=== PATIENT | male | born 1960 | race Caucasian/White ===

== ENCOUNTER 2017-04-09 18:35 | Emergency (ER) | payer MEDICARE, OTHER ==
[~2017-04-09] VITALS: Ht 180.3 cm; Wt 86.0 kg
[~2017-04-09 18:35] MED LIST: ASPI-1093 PO; BENZ1TAB10 PO; DOCU250C91 PO; GEMF600T3 PO; INSLAN SQ; IVER3 PO; LACT30L PO; LAMO100T56 PO; LEVO25TA4 PO; METF500T4 PO; OMEP20 PO; SANTO TP; SITA50 PO
[2017-04-09] MEDS ORDERED: MULT-71 PO (19:17)
[2017-04-09] MEDS ORDERED: TRIH2TAB3 PO (19:17)
[2017-04-09] MEDS ORDERED: DIVA500T35 PO (19:17)
[2017-04-09] MEDS ORDERED: QUET100T PO (19:17)
[2017-04-09] MEDS ORDERED: FLUO-125 PO (19:17)
[2017-04-09] MEDS ORDERED: DIVA500T52 PO (19:17)
[2017-04-09] MEDS ORDERED: SENN-30 PO (19:17)
[2017-04-09 19:24] LABS: BASOPHILS % (AUTO) 0.9 % (0.0-2.0); EOSINOPHILS % (AUTO) 3.4 % (1.0-6.0); HEMATOCRIT 40.2 % (41-53); HEMOGLOBIN 13.8 g/dL (13.5-17.5); LYMPHOCYTES % (AUTO) 21.2 % (22.0-44.0); MEAN CORPUSCULAR HEMOGLOBIN 32.4 pg (26.0-34.0); MEAN CORPUSCULAR HGB CONC 34.2 G/dL (31.0-37.0); MEAN CORPUSCULAR VOLUME 95 fL (80-100); MONOCYTES # (AUTO) 0.8 K/uL (0.1-1.0); NEUTROPHILS # (AUTO) 6.2 K/uL (1.8-7.7); NEUTROPHILS % (AUTO) 65.5 % (40.0-70.0); PLATELET COUNT (AUTO) 282 K/uL (150-450); RED BLOOD CELL COUNT(AUTO) 4.25 MIL/uL (4.50-5.90); WHITE BLOOD COUNT (AUTO) 9.4 K/uL (4.5-11.0)
[2017-04-09] MEDS ORDERED: DiphenhydrAMINE HCL 50 MG CAPSULE PO ONE (19:45)
[2017-04-09] MEDS ORDERED: HALOPERIDOL 5 MG TABLET PO ONE (19:45)
[2017-04-09] MEDS ORDERED: LORazepam 2 MG TABLET PO ONE (19:45)
[2017-04-09 20:07] LABS: ANION GAP 9 mmol/L (8-16); CALCIUM, TOTAL 9.5 mg/dL (8.8-10.5); CARBON DIOXIDE 29 mmol/L (22-29); CHLORIDE 106 mmol/L (98-107); CREATININE 1.01 mg/dL (0.60-1.30); GLOMERULAR FILTR. RATE CALC > 60 mL/min (>60); POTASSIUM 3.8 mmol/L (3.5-5.1); SODIUM SERUM 144 mmol/L (136-145); UREA NITROGEN, BLOOD 12 mg/dL (7-18)
[2017-04-09 20:12] LABS: ALANINE AMINOTRANSFERASE 28 U/L (12-78); ALBUMIN 3.8 g/dL (3.4-5.0); ASPARTATE AMINOTRANSFERASE 20 U/L (15-37); BILIRUBIN,TOTAL 0.3 mg/dL (0.1-1.0); TOTAL PROTEIN, SERUM 7.8 g/dL (6.4-8.2); VALPROIC ACID 60 mcg/mL (50-100)
[2017-04-09 21:17] LABS: GLUCOSE,POINT OF CARE 163 MG/DL (70-110)
[2017-04-09 21:34] VITALS: BP 150/93
== END 2017-04-09 21:59 | disposition home or self-care (01) ==
LOC: EMS 18:41
DX: F41.9 Anxiety disorder, unspecified (principal); F20.9 Schizophrenia, unspecified; F32.9 Major depressive disorder, single episode, unspecified; I25.10 Atherosclerotic heart disease of native coronary artery without angina pectoris; E03.9 Hypothyroidism, unspecified; E11.9 Type 2 diabetes mellitus without complications; I10 Essential (primary) hypertension; K21.9 Gastro-esophageal reflux disease without esophagitis
CPT/HCPCS: 36415; 80053; 80164; 80307; 82962; 85025; 99285; G0480

== ENCOUNTER 2017-04-12 07:36 | Inpatient (IN) | payer MEDICARE, OTHER ==
[~2017-04-12] VITALS: Ht 180.3 cm; Wt 85.0 kg
[~2017-04-12 07:36] MED LIST changes: -ASPI-1093 PO; -BENZ1TAB10 PO; +DIVA500T35 PO; +DIVA500T52 PO; -DOCU250C91 PO; +FLUO-125 PO; -GEMF600T3 PO; -INSLAN SQ; -IVER3 PO; -LAMO100T56 PO; -LEVO25TA4 PO; -METF500T4 PO; +MULT1TAB70 PO; -OMEP20 PO; +QUET100T PO; -SANTO TP; +SENN-30 PO; -SITA50 PO; +TRIH2TAB3 PO
[2017-04-12] MEDS ORDERED: ERGO400T7 PO (08:04)
[2017-04-12] MEDS ORDERED: FLUV100C2 PO (08:04)
[2017-04-12] MEDS ORDERED: DOCU-275 PO (08:04)
[2017-04-12] MEDS ORDERED: HALO5TAB PO (08:04)
[2017-04-12] MEDS ORDERED: LEVO25TA4 PO (08:04)
[2017-04-12] MEDS ORDERED: TRAZ150T85 PO (08:04)
[2017-04-12] MEDS ORDERED: DIPH25TA20 PO (08:04)
[2017-04-12] MEDS ORDERED: LITH150C PO (08:04)
[2017-04-12] MEDS ORDERED: SODIUM CHLORIDE 0.9% 1,000 ML IV ONE (08:15)
[2017-04-12 08:52] LABS: BASOPHILS % (AUTO) 0.2 % (0.0-2.0); EOSINOPHILS % (AUTO) 0.5 % (1.0-6.0); HEMATOCRIT 37.7 % (41-53); LYMPHOCYTES # (AUTO) 0.9 K/uL (1.0-4.8); LYMPHOCYTES % (AUTO) 7.6 % (22.0-44.0); MEAN CORPUSCULAR HEMOGLOBIN 31.9 pg (26.0-34.0); MEAN CORPUSCULAR HGB CONC 34.4 G/dL (31.0-37.0); MEAN CORPUSCULAR VOLUME 93 fL (80-100); MONOCYTES # (AUTO) 0.8 K/uL (0.1-1.0); MONOCYTES % (AUTO) 6.7 % (2.0-9.0); NEUTROPHILS # (AUTO) 10.4 K/uL (1.8-7.7); PLATELET COUNT (AUTO) 265 K/uL (150-450); RED BLOOD CELL COUNT(AUTO) 4.07 MIL/uL (4.50-5.90); RED CELL DISTRIBUTION WIDTH 13.9 % (11.5-14.5); WHITE BLOOD COUNT (AUTO) 12.3 K/uL (4.5-11.0)
[2017-04-12 09:01] LABS: ANION GAP 16 mmol/L (8-16); CALCIUM, TOTAL 8.8 mg/dL (8.8-10.5); CARBON DIOXIDE 21 mmol/L (22-29); CHLORIDE 109 mmol/L (98-107); CREATININE 1.11 mg/dL (0.60-1.30); GLOMERULAR FILTR. RATE CALC > 60 mL/min (>60); POTASSIUM 3.4 mmol/L (3.5-5.1); SODIUM SERUM 146 mmol/L (136-145); UREA NITROGEN, BLOOD 17 mg/dL (7-18)
[2017-04-12 09:07] LABS: SALICYLATE 59.8 mg/dL (2.8-20.0)
[2017-04-12 09:08] LABS: ALANINE AMINOTRANSFERASE 20 U/L (12-78); ALBUMIN 3.5 g/dL (3.4-5.0); ASPARTATE AMINOTRANSFERASE 19 U/L (15-37); BILIRUBIN,TOTAL 0.3 mg/dL (0.1-1.0); TOTAL PROTEIN, SERUM 7.5 g/dL (6.4-8.2); VALPROIC ACID 53 mcg/mL (50-100)
[2017-04-12 09:09] LABS: ACETAMINOPHEN < 2 mcg/mL (10-30)
[2017-04-12] MEDS ORDERED: SODIUM BICARBONATE 50 MEQ in SODIUM CHLORIDE 0.9% 1,000 ML IV ONE (09:15)
[2017-04-12 09:16] LABS: LITHIUM < 0.20 mmol/L (0.60-1.20)
[2017-04-12] MEDS ORDERED: DEXTROSE 50%-WATER 25 GM/50 ML SYRINGE IVP PRN (10:00)
[2017-04-12] MEDS ORDERED: ACETAMINOPHEN 325 MG TABLET PO PRN (10:00)
[2017-04-12] MEDS ORDERED: ONDANSETRON HCL 4 MG/2 ML VIAL IVP PRN (10:00)
[2017-04-12] MEDS ORDERED: MAGNESIUM OXIDE 400 MG TABLET PO PRN (10:00)
[2017-04-12] MEDS ORDERED: MAGNESIUM SULFATE 2 GM in DEXTROSE 5%-WATER 50 ML IV PRN (10:00)
[2017-04-12] MEDS ORDERED: MAGNESIUM SULFATE 4 GM/WATER 100 ML IV PRN (10:00)
[2017-04-12] MEDS ORDERED: POTASSIUM CHL 10 MEQ/WATER 50 ML IV PRN (10:00)
[2017-04-12] MEDS ORDERED: PERMETHRIN 5% 60 GM CREAM TP ONE (10:00)
[2017-04-12] MEDS ORDERED: MAGNESIUM HYDROXIDE SUSPENSION 30 ML UDCUP PO PRN (10:00)
[2017-04-12] MEDS: SODIUM CHLORIDE 0.9% 1,000 ML IV SCH ×2 (10:03→21:36)
[2017-04-12] MEDS: PANTOPRAZOLE SODIUM 40 MG/VIAL IVP SCH (10:03)
[2017-04-12 10:40] LABS: ANION GAP 15 mmol/L (8-16); CARBON DIOXIDE 21 mmol/L (22-29); CHLORIDE 112 mmol/L (98-107); CREATININE 1.06 mg/dL (0.60-1.30); GLOMERULAR FILTR. RATE CALC > 60 mL/min (>60); POTASSIUM 3.2 mmol/L (3.5-5.1); SODIUM SERUM 148 mmol/L (136-145); UREA NITROGEN, BLOOD 15 mg/dL (7-18)
[2017-04-12 10:54] LABS: SALICYLATE 54.9 mg/dL (2.8-20.0)
[2017-04-12 11:49] LABS: ALBUMIN 3.3 g/dL (3.4-5.0)
[2017-04-12 12:30] VITALS: BP 110/70
[2017-04-12] MEDS: POTASSIUM CHLORIDE 20 MEQ ER TABLET PO PRN ×2 (14:04→21:37)
[2017-04-12 16:20] VITALS: BP 104/65
[2017-04-12] MEDS: INSULIN ASPART 100 UNITS/ML SQ PRN (17:38)
[2017-04-12 20:00] VITALS: BP 128/73
[2017-04-12 20:18] LABS: GLUCOSE,POINT OF CARE 96 MG/DL (70-110)
[2017-04-12] MEDS: DOCUSATE SODIUM 100 MG CAPSULE PO SCH (21:36)
[2017-04-13 00:09] VITALS: BP 118/73
[2017-04-13 00:57] LABS: GLUCOSE,POINT OF CARE 83 MG/DL (70-110)
[2017-04-13] MEDS: POTASSIUM CHLORIDE 20 MEQ ER TABLET PO PRN (02:30)
[2017-04-13] MEDS ORDERED: DiphenhydrAMINE HCL 50 MG/ML VIAL IVP ONE (03:15)
[2017-04-13 04:30] VITALS: BP 119/76
[2017-04-13] MEDS: SODIUM CHLORIDE 0.9% 1,000 ML IV SCH ×3 (06:33→17:06)
[2017-04-13 06:56] LABS: BASOPHILS % (AUTO) 0.4 % (0.0-2.0); EOSINOPHILS % (AUTO) 4.2 % (1.0-6.0); HEMATOCRIT 35.3 % (41-53); HEMOGLOBIN 12.1 g/dL (13.5-17.5); LYMPHOCYTES # (AUTO) 2.2 K/uL (1.0-4.8); LYMPHOCYTES % (AUTO) 24.1 % (22.0-44.0); MEAN CORPUSCULAR HEMOGLOBIN 32.2 pg (26.0-34.0); MEAN CORPUSCULAR HGB CONC 34.2 G/dL (31.0-37.0); MEAN CORPUSCULAR VOLUME 94 fL (80-100); MONOCYTES % (AUTO) 11.2 % (2.0-9.0); NEUTROPHILS # (AUTO) 5.4 K/uL (1.8-7.7); NEUTROPHILS % (AUTO) 60.1 % (40.0-70.0); PLATELET COUNT (AUTO) 250 K/uL (150-450); RED BLOOD CELL COUNT(AUTO) 3.75 MIL/uL (4.50-5.90); RED CELL DISTRIBUTION WIDTH 13.9 % (11.5-14.5); WHITE BLOOD COUNT (AUTO) 8.9 K/uL (4.5-11.0)
[2017-04-13 07:26] LABS: ANION GAP 10 mmol/L (8-16); CALCIUM, TOTAL 7.9 mg/dL (8.8-10.5); CARBON DIOXIDE 23 mmol/L (22-29); CHLORIDE 111 mmol/L (98-107); CREATININE 1.11 mg/dL (0.60-1.30); GLOMERULAR FILTR. RATE CALC > 60 mL/min (>60); POTASSIUM 3.7 mmol/L (3.5-5.1); SODIUM SERUM 144 mmol/L (136-145); UREA NITROGEN, BLOOD 13 mg/dL (7-18)
[2017-04-13 08:22] VITALS: BP 129/79
[2017-04-13] MEDS: DOCUSATE SODIUM 100 MG CAPSULE PO SCH ×2 (09:08→21:00)
[2017-04-13] MEDS: PANTOPRAZOLE SODIUM 40 MG/VIAL IVP SCH (09:09)
[2017-04-13 11:36] VITALS: BP 128/73
[2017-04-13] MEDS: INSULIN ASPART 100 UNITS/ML SQ PRN ×2 (12:14→17:22)
[2017-04-13 15:12] VITALS: BP 116/75
[2017-04-13] MEDS: LORazepam 2 MG/ML VIAL IVP PRN ×2 (16:17→21:37)
[2017-04-13 19:23] VITALS: BP 140/83
[2017-04-13] MEDS: TRIHEXYPHENIDYL HCL 2 MG TABLET PO SCH (21:00)
[2017-04-13] MEDS: HALOPERIDOL 10 MG TABLET PO SCH (21:00)
[2017-04-13] MEDS: LITHIUM CARBONATE 300 MG TABLET PO SCH (21:00)
[2017-04-13 23:37] LABS: GLUCOSE,POINT OF CARE 94 MG/DL (70-110)
[2017-04-13 23:37] LABS: GLUCOSE,POINT OF CARE 102 MG/DL (70-110)
[2017-04-13 23:37] LABS: GLUCOSE,POINT OF CARE 74 MG/DL (70-110)
[2017-04-13 23:37] LABS: GLUCOSE,POINT OF CARE 107 MG/DL (70-110)
[2017-04-14 00:11] VITALS: BP 139/79
[2017-04-14] MEDS: SODIUM CHLORIDE 0.9% 1,000 ML IV SCH (02:17)
[2017-04-14 07:04] LABS: BASOPHILS % (AUTO) 0.6 % (0.0-2.0); EOSINOPHILS % (AUTO) 6.9 % (1.0-6.0); HEMATOCRIT 36.9 % (41-53); HEMOGLOBIN 12.4 g/dL (13.5-17.5); LYMPHOCYTES % (AUTO) 29.3 % (22.0-44.0); MEAN CORPUSCULAR HGB CONC 33.7 G/dL (31.0-37.0); MEAN CORPUSCULAR VOLUME 95 fL (80-100); MONOCYTES # (AUTO) 0.9 K/uL (0.1-1.0); MONOCYTES % (AUTO) 12.9 % (2.0-9.0); NEUTROPHILS # (AUTO) 3.5 K/uL (1.8-7.7); NEUTROPHILS % (AUTO) 50.3 % (40.0-70.0); PLATELET COUNT (AUTO) 245 K/uL (150-450); RED BLOOD CELL COUNT(AUTO) 3.89 MIL/uL (4.50-5.90); RED CELL DISTRIBUTION WIDTH 13.8 % (11.5-14.5)
[2017-04-14 07:29] LABS: ALANINE AMINOTRANSFERASE 25 U/L (12-78); ALBUMIN 3.1 g/dL (3.4-5.0); ANION GAP 9 mmol/L (8-16); ASPARTATE AMINOTRANSFERASE 40 U/L (15-37); BILIRUBIN,TOTAL 0.2 mg/dL (0.1-1.0); CALCIUM, TOTAL 8.5 mg/dL (8.8-10.5); CARBON DIOXIDE 27 mmol/L (22-29); CHLORIDE 109 mmol/L (98-107); CREATININE 0.98 mg/dL (0.60-1.30); GLOMERULAR FILTR. RATE CALC > 60 mL/min (>60); POTASSIUM 3.4 mmol/L (3.5-5.1); SODIUM SERUM 145 mmol/L (136-145); TOTAL PROTEIN, SERUM 6.6 g/dL (6.4-8.2); UREA NITROGEN, BLOOD 8 mg/dL (7-18)
[2017-04-14 08:12] VITALS: BP 136/84
[2017-04-14 08:16] LABS: THYROID STIMULATING HORMONE 3.82 uIU/mL (0.36-3.74)
[2017-04-14 08:38] LABS: LITHIUM < 0.20 mmol/L (0.60-1.20)
[2017-04-14 08:45] LABS: SALICYLATE 17.4 mg/dL (2.8-20.0)
[2017-04-14] MEDS ORDERED: HALOPERIDOL LACTATE 5 MG/ML VIAL IM PRN (10:15)
[2017-04-14 11:09] VITALS: BP 128/74
[2017-04-14] MEDS: INSULIN ASPART 100 UNITS/ML SQ PRN ×2 (12:03→16:50)
[2017-04-14] MEDS: DOCUSATE SODIUM 100 MG CAPSULE PO SCH ×2 (12:27→19:36)
[2017-04-14] MEDS: POTASSIUM CHLORIDE 20 MEQ ER TABLET PO PRN (12:27)
[2017-04-14] MEDS: HALOPERIDOL 10 MG TABLET PO SCH ×2 (12:27→19:37)
[2017-04-14] MEDS: TRIHEXYPHENIDYL HCL 2 MG TABLET PO SCH ×3 (12:28→19:35)
[2017-04-14] MEDS: FLUoxetine HCL 20 MG CAPSULE PO SCH (12:28)
[2017-04-14] MEDS: LITHIUM CARBONATE 300 MG TABLET PO SCH ×2 (12:28→19:36)
[2017-04-14 14:21] LABS: GLUCOSE,POINT OF CARE 102 MG/DL (70-110)
[2017-04-14 16:05] VITALS: BP 144/80
[2017-04-14] MEDS: QUEtiapine FUMARATE 100 MG TABLET PO SCH ×2 (16:21→19:37)
[2017-04-14 17:17] LABS: GLUCOSE,POINT OF CARE 94 MG/DL (70-110)
[2017-04-14 18:42] LABS: GLUCOSE COMMENT 1 Received Meds; GLUCOSE,POINT OF CARE 141 MG/DL (70-110)
[2017-04-14 20:00] VITALS: BP 150/88
[2017-04-14 22:07] LABS: GLUCOSE COMMENT 1 Juice/Food/D50 Given; GLUCOSE,POINT OF CARE 148 MG/DL (70-110)
[2017-04-15 00:17] VITALS: BP 132/84
[2017-04-15 04:00] VITALS: BP 136/82
[2017-04-15 07:51] VITALS: BP 154/84
[2017-04-15] MEDS: FLUoxetine HCL 20 MG CAPSULE PO SCH (08:29)
[2017-04-15] MEDS: LITHIUM CARBONATE 300 MG TABLET PO SCH ×2 (08:30→22:23)
[2017-04-15] MEDS: HALOPERIDOL 10 MG TABLET PO SCH ×2 (08:36→22:23)
[2017-04-15] MEDS: TRIHEXYPHENIDYL HCL 2 MG TABLET PO SCH ×3 (08:36→22:23)
[2017-04-15] MEDS: DOCUSATE SODIUM 100 MG CAPSULE PO SCH ×2 (08:37→22:23)
[2017-04-15] MEDS: PANTOPRAZOLE SODIUM 40 MG/VIAL IVP SCH ×2 (08:55→09:00)
[2017-04-15 08:57] LABS: GLUCOSE COMMENT 1 Received Meds; GLUCOSE,POINT OF CARE 95 MG/DL (70-110)
[2017-04-15] MEDS: QUEtiapine FUMARATE 100 MG TABLET PO SCH ×2 (10:09→22:23)
[2017-04-15 12:16] VITALS: BP 152/98
[2017-04-15 12:16] LABS: GLUCOSE,POINT OF CARE 98 MG/DL (70-110)
[2017-04-15] MEDS: LORazepam 2 MG/ML VIAL IVP PRN (12:40)
[2017-04-15 16:09] VITALS: BP 156/79
[2017-04-15 18:27] LABS: GLUCOSE,POINT OF CARE 106 MG/DL (70-110)
[2017-04-15 22:29] VITALS: BP 137/87
[2017-04-15 23:52] LABS: GLUCOSE,POINT OF CARE 100 MG/DL (70-110)
[2017-04-16] VITALS (8 sets, daily range): BP systolic 117–153; BP diastolic 80–86
[2017-04-16 06:42] LABS: GLUCOSE,POINT OF CARE 125 MG/DL (70-110)
[2017-04-16] MEDS: LITHIUM CARBONATE 300 MG TABLET PO SCH ×2 (08:15→21:35)
[2017-04-16] MEDS: DOCUSATE SODIUM 100 MG CAPSULE PO SCH ×2 (08:15→21:35)
[2017-04-16] MEDS: FLUoxetine HCL 20 MG CAPSULE PO SCH (08:15)
[2017-04-16] MEDS: QUEtiapine FUMARATE 100 MG TABLET PO SCH ×2 (08:15→21:35)
[2017-04-16] MEDS: TRIHEXYPHENIDYL HCL 2 MG TABLET PO SCH ×3 (08:15→21:35)
[2017-04-16] MEDS: HALOPERIDOL 10 MG TABLET PO SCH ×2 (08:15→21:35)
[2017-04-16] MEDS: PANTOPRAZOLE SODIUM 40 MG DR TABLET PO SCH (11:10)
[2017-04-16 11:23] LABS: GLUCOSE COMMENT 1 Received Meds; GLUCOSE,POINT OF CARE 155 MG/DL (70-110)
[2017-04-16] MEDS: INSULIN ASPART 100 UNITS/ML SQ PRN ×2 (11:24→21:39)
[2017-04-16] MEDS ORDERED: PERMETHRIN 5% 60 GM CREAM TP ONE (11:30)
[2017-04-16 16:57] LABS: GLUCOSE,POINT OF CARE 106 MG/DL (70-110)
[2017-04-17 01:27] LABS: GLUCOSE COMMENT 1 Received Meds; GLUCOSE,POINT OF CARE 151 MG/DL (70-110)
[2017-04-17 04:15] VITALS: BP 135/79
[2017-04-17 06:03] LABS: GLUCOSE,POINT OF CARE 134 MG/DL (70-110)
[2017-04-17 08:06] VITALS: BP 116/59
[2017-04-17] MEDS: DOCUSATE SODIUM 100 MG CAPSULE PO SCH ×2 (08:35→20:04)
[2017-04-17] MEDS: HALOPERIDOL 10 MG TABLET PO SCH ×2 (08:35→20:05)
[2017-04-17] MEDS: TRIHEXYPHENIDYL HCL 2 MG TABLET PO SCH ×3 (08:35→20:04)
[2017-04-17] MEDS: FLUoxetine HCL 20 MG CAPSULE PO SCH (08:35)
[2017-04-17] MEDS: PANTOPRAZOLE SODIUM 40 MG DR TABLET PO SCH (08:36)
[2017-04-17] MEDS: LITHIUM CARBONATE 300 MG TABLET PO SCH ×2 (08:36→20:05)
[2017-04-17] MEDS: QUEtiapine FUMARATE 100 MG TABLET PO SCH ×2 (08:36→20:04)
[2017-04-17 11:37] VITALS: BP 141/79
[2017-04-17 11:53] LABS: GLUCOSE,POINT OF CARE 101 MG/DL (70-110)
[2017-04-17 17:07] VITALS: BP 130/81
[2017-04-17 17:27] LABS: GLUCOSE,POINT OF CARE 93 MG/DL (70-110)
[2017-04-17 19:19] VITALS: BP 141/90
[2017-04-17 20:22] LABS: GLUCOSE,POINT OF CARE 104 MG/DL (70-110)
[2017-04-17 23:03] VITALS: BP 123/79
[2017-04-18 04:44] VITALS: BP 126/74
[2017-04-18 07:22] LABS: GLUCOSE,POINT OF CARE 103 MG/DL (70-110)
[2017-04-18 07:28] VITALS: BP 121/76
[2017-04-18] MEDS: QUEtiapine FUMARATE 100 MG TABLET PO SCH ×2 (08:00→20:40)
[2017-04-18] MEDS: TRIHEXYPHENIDYL HCL 2 MG TABLET PO SCH ×3 (08:00→20:40)
[2017-04-18] MEDS: HALOPERIDOL 10 MG TABLET PO SCH ×2 (08:00→20:40)
[2017-04-18] MEDS: FLUoxetine HCL 20 MG CAPSULE PO SCH (08:00)
[2017-04-18] MEDS: PANTOPRAZOLE SODIUM 40 MG DR TABLET PO SCH (08:00)
[2017-04-18] MEDS: DOCUSATE SODIUM 100 MG CAPSULE PO SCH ×2 (08:00→20:40)
[2017-04-18] MEDS: LITHIUM CARBONATE 300 MG TABLET PO SCH ×2 (08:01→20:40)
[2017-04-18 11:10] VITALS: BP 111/77
[2017-04-18 11:17] LABS: GLUCOSE,POINT OF CARE 102 MG/DL (70-110)
[2017-04-18] MEDS: LORazepam 1 MG TABLET PO PRN ×2 (13:39→21:52)
[2017-04-18 15:27] VITALS: BP 131/84
[2017-04-18 17:17] LABS: GLUCOSE,POINT OF CARE 94 MG/DL (70-110)
[2017-04-18 20:22] VITALS: BP 119/49
[2017-04-18 21:07] LABS: GLUCOSE,POINT OF CARE 130 MG/DL (70-110)
[2017-04-19] VITALS (7 sets, daily range): BP systolic 97–134; BP diastolic 56–77
[2017-04-19 06:21] LABS: ALBUMIN 3.5 g/dL (3.4-5.0); POTASSIUM 3.8 mmol/L (3.5-5.1)
[2017-04-19 07:01] LABS: GLUCOSE,POINT OF CARE 131 MG/DL (70-110)
[2017-04-19] MEDS: TRIHEXYPHENIDYL HCL 2 MG TABLET PO SCH ×3 (09:37→19:55)
[2017-04-19] MEDS: DOCUSATE SODIUM 100 MG CAPSULE PO SCH ×2 (09:37→19:55)
[2017-04-19] MEDS: PANTOPRAZOLE SODIUM 40 MG DR TABLET PO SCH (09:37)
[2017-04-19] MEDS: LITHIUM CARBONATE 300 MG TABLET PO SCH ×2 (09:38→19:55)
[2017-04-19] MEDS: HALOPERIDOL 10 MG TABLET PO SCH ×2 (09:38→19:55)
[2017-04-19] MEDS: FLUoxetine HCL 20 MG CAPSULE PO SCH (09:38)
[2017-04-19] MEDS: QUEtiapine FUMARATE 100 MG TABLET PO SCH ×2 (09:38→19:55)
[2017-04-19 12:17] LABS: GLUCOSE,POINT OF CARE 123 MG/DL (70-110)
[2017-04-19] MEDS: INSULIN ASPART 100 UNITS/ML SQ PRN ×2 (15:14→17:29)
[2017-04-19] MEDS: LORazepam 1 MG TABLET PO PRN ×2 (15:35→19:55)
[2017-04-19 22:12] LABS: GLUCOSE,POINT OF CARE 123 MG/DL (70-110)
[2017-04-19 22:12] LABS: GLUCOSE,POINT OF CARE 74 MG/DL (70-110)
[2017-04-20 04:00] VITALS: BP 112/70
[2017-04-20] MEDS: INSULIN ASPART 100 UNITS/ML SQ PRN ×3 (06:26→22:14)
[2017-04-20 06:42] LABS: GLUCOSE COMMENT 1 Received Meds; GLUCOSE,POINT OF CARE 151 MG/DL (70-110)
[2017-04-20 07:30] VITALS: BP 126/72
[2017-04-20] MEDS: DOCUSATE SODIUM 100 MG CAPSULE PO SCH ×2 (09:20→20:55)
[2017-04-20] MEDS: HALOPERIDOL 10 MG TABLET PO SCH ×2 (09:20→21:00)
[2017-04-20] MEDS: TRIHEXYPHENIDYL HCL 2 MG TABLET PO SCH ×3 (09:20→20:55)
[2017-04-20] MEDS: LITHIUM CARBONATE 300 MG TABLET PO SCH ×2 (09:21→20:55)
[2017-04-20] MEDS: QUEtiapine FUMARATE 100 MG TABLET PO SCH ×2 (09:21→20:55)
[2017-04-20] MEDS: PANTOPRAZOLE SODIUM 40 MG DR TABLET PO SCH (09:21)
[2017-04-20] MEDS: FLUoxetine HCL 20 MG CAPSULE PO SCH (09:21)
[2017-04-20 09:44] LABS: BASOPHILS % (AUTO) 0.5 % (0.0-2.0); EOSINOPHILS % (AUTO) 4.6 % (1.0-6.0); HEMATOCRIT 39.6 % (41-53); HEMOGLOBIN 13.4 g/dL (13.5-17.5); LYMPHOCYTES # (AUTO) 2.3 K/uL (1.0-4.8); LYMPHOCYTES % (AUTO) 21.7 % (22.0-44.0); MEAN CORPUSCULAR HEMOGLOBIN 31.7 pg (26.0-34.0); MEAN CORPUSCULAR HGB CONC 33.9 G/dL (31.0-37.0); MEAN CORPUSCULAR VOLUME 94 fL (80-100); MONOCYTES # (AUTO) 1.2 K/uL (0.1-1.0); MONOCYTES % (AUTO) 11.1 % (2.0-9.0); NEUTROPHILS # (AUTO) 6.5 K/uL (1.8-7.7); NEUTROPHILS % (AUTO) 62.1 % (40.0-70.0); PLATELET COUNT (AUTO) 297 K/uL (150-450); RED BLOOD CELL COUNT(AUTO) 4.23 MIL/uL (4.50-5.90); RED CELL DISTRIBUTION WIDTH 13.7 % (11.5-14.5); WHITE BLOOD COUNT (AUTO) 10.5 K/uL (4.5-11.0)
[2017-04-20 09:54] LABS: ANION GAP 7 mmol/L (8-16); CALCIUM, TOTAL 9.3 mg/dL (8.8-10.5); CARBON DIOXIDE 28 mmol/L (22-29); CHLORIDE 106 mmol/L (98-107); CREATININE 0.98 mg/dL (0.60-1.30); GLOMERULAR FILTR. RATE CALC > 60 mL/min (>60); LITHIUM 0.85 mmol/L (0.60-1.20); POTASSIUM 4.1 mmol/L (3.5-5.1); SODIUM SERUM 141 mmol/L (136-145); UREA NITROGEN, BLOOD 20 mg/dL (7-18)
[2017-04-20 11:53] VITALS: BP 123/83
[2017-04-20 12:32] LABS: GLUCOSE,POINT OF CARE 103 MG/DL (70-110)
[2017-04-20 15:19] VITALS: BP 119/82
[2017-04-20] MEDS: LORazepam 1 MG TABLET PO PRN (15:59)
[2017-04-20 19:17] LABS: GLUCOSE,POINT OF CARE 95 MG/DL (70-110)
[2017-04-20 19:48] VITALS: BP 129/80
[2017-04-20 21:52] LABS: GLUCOSE COMMENT 1 Received Meds; GLUCOSE,POINT OF CARE 147 MG/DL (70-110)
[2017-04-20 23:00] VITALS: BP 133/85
[2017-04-21 04:57] VITALS: BP 123/80
[2017-04-21 07:26] VITALS: BP 127/78
[2017-04-21 07:37] LABS: GLUCOSE,POINT OF CARE 116 MG/DL (70-110)
[2017-04-21] MEDS: DOCUSATE SODIUM 100 MG CAPSULE PO SCH ×2 (09:08→20:47)
[2017-04-21] MEDS: PANTOPRAZOLE SODIUM 40 MG DR TABLET PO SCH (09:08)
[2017-04-21] MEDS: TRIHEXYPHENIDYL HCL 2 MG TABLET PO SCH ×3 (09:08→20:47)
[2017-04-21] MEDS: HALOPERIDOL 10 MG TABLET PO SCH ×2 (09:09→20:48)
[2017-04-21] MEDS: FLUoxetine HCL 20 MG CAPSULE PO SCH (09:09)
[2017-04-21] MEDS: LITHIUM CARBONATE 300 MG TABLET PO SCH ×2 (09:09→20:49)
[2017-04-21] MEDS: QUEtiapine FUMARATE 100 MG TABLET PO SCH ×2 (09:09→20:48)
[2017-04-21 11:52] VITALS: BP 119/82
[2017-04-21 12:02] LABS: GLUCOSE,POINT OF CARE 103 MG/DL (70-110)
[2017-04-21 15:30] VITALS: BP 118/80
[2017-04-21 17:42] LABS: GLUCOSE,POINT OF CARE 97 MG/DL (70-110)
[2017-04-21 19:45] VITALS: BP 146/83
[2017-04-21] MEDS: INSULIN ASPART 100 UNITS/ML SQ PRN (20:52)
[2017-04-21 23:15] VITALS: BP 124/78
[2017-04-22 06:30] VITALS: BP 118/76
[2017-04-22 06:38] LABS: GLUCOSE,POINT OF CARE 131 MG/DL (70-110)
[2017-04-22 07:23] LABS: GLUCOSE COMMENT 1 Received Meds; GLUCOSE,POINT OF CARE 164 MG/DL (70-110)
[2017-04-22 07:27] VITALS: BP 112/74
[2017-04-22] MEDS: PANTOPRAZOLE SODIUM 40 MG DR TABLET PO SCH (08:51)
[2017-04-22] MEDS: TRIHEXYPHENIDYL HCL 2 MG TABLET PO SCH ×3 (08:51→20:28)
[2017-04-22] MEDS: DOCUSATE SODIUM 100 MG CAPSULE PO SCH ×2 (08:51→20:28)
[2017-04-22] MEDS: QUEtiapine FUMARATE 100 MG TABLET PO SCH ×2 (08:51→20:28)
[2017-04-22] MEDS: HALOPERIDOL 10 MG TABLET PO SCH ×2 (08:51→20:28)
[2017-04-22] MEDS: FLUoxetine HCL 20 MG CAPSULE PO SCH (08:51)
[2017-04-22] MEDS: LITHIUM CARBONATE 300 MG TABLET PO SCH ×2 (08:51→20:28)
[2017-04-22 11:13] LABS: GLUCOSE,POINT OF CARE 122 MG/DL (70-110)
[2017-04-22 11:25] VITALS: BP 115/69
[2017-04-22 15:45] VITALS: BP 125/74
[2017-04-22 17:07] LABS: GLUCOSE,POINT OF CARE 117 MG/DL (70-110)
[2017-04-22 19:23] VITALS: BP 124/85
[2017-04-23] VITALS (7 sets, daily range): BP systolic 113–141; BP diastolic 69–82
[2017-04-23 08:12] LABS: GLUCOSE,POINT OF CARE 109 MG/DL (70-110)
[2017-04-23 08:12] LABS: GLUCOSE,POINT OF CARE 123 MG/DL (70-110)
[2017-04-23] MEDS: HALOPERIDOL 10 MG TABLET PO SCH ×2 (08:48→20:50)
[2017-04-23] MEDS: QUEtiapine FUMARATE 100 MG TABLET PO SCH ×2 (08:48→20:50)
[2017-04-23] MEDS: TRIHEXYPHENIDYL HCL 2 MG TABLET PO SCH ×3 (08:48→20:50)
[2017-04-23] MEDS: PANTOPRAZOLE SODIUM 40 MG DR TABLET PO SCH (08:49)
[2017-04-23] MEDS: FLUoxetine HCL 20 MG CAPSULE PO SCH (08:49)
[2017-04-23] MEDS: LITHIUM CARBONATE 300 MG TABLET PO SCH ×2 (08:49→20:50)
[2017-04-23] MEDS: DOCUSATE SODIUM 100 MG CAPSULE PO SCH ×2 (08:49→20:50)
[2017-04-23 11:38] LABS: GLUCOSE,POINT OF CARE 115 MG/DL (70-110)
[2017-04-23 17:53] LABS: GLUCOSE,POINT OF CARE 116 MG/DL (70-110)
[2017-04-23 21:08] LABS: GLUCOSE,POINT OF CARE 129 MG/DL (70-110)
[2017-04-24 04:15] VITALS: BP 132/72
[2017-04-24 06:57] LABS: GLUCOSE,POINT OF CARE 132 MG/DL (70-110)
[2017-04-24] MEDS: TRIHEXYPHENIDYL HCL 2 MG TABLET PO SCH ×3 (08:08→20:07)
[2017-04-24] MEDS: QUEtiapine FUMARATE 100 MG TABLET PO SCH ×2 (08:08→20:07)
[2017-04-24] MEDS: HALOPERIDOL 10 MG TABLET PO SCH ×2 (08:08→20:07)
[2017-04-24] MEDS: DOCUSATE SODIUM 100 MG CAPSULE PO SCH ×2 (08:08→20:07)
[2017-04-24] MEDS: FLUoxetine HCL 20 MG CAPSULE PO SCH (08:08)
[2017-04-24] MEDS: PANTOPRAZOLE SODIUM 40 MG DR TABLET PO SCH (08:08)
[2017-04-24] MEDS: LITHIUM CARBONATE 300 MG TABLET PO SCH ×2 (08:09→20:08)
[2017-04-24 08:17] VITALS: BP 118/73
[2017-04-24 12:17] LABS: GLUCOSE,POINT OF CARE 103 MG/DL (70-110)
[2017-04-24 15:00] VITALS: BP 120/75
[2017-04-24 17:03] LABS: GLUCOSE COMMENT 1 Received Meds; GLUCOSE,POINT OF CARE 141 MG/DL (70-110)
[2017-04-24] MEDS: INSULIN ASPART 100 UNITS/ML SQ PRN (17:33)
[2017-04-24] MEDS: LORazepam 1 MG TABLET PO PRN (19:24)
[2017-04-24 20:14] VITALS: BP 117/51
[2017-04-24 23:46] VITALS: BP 130/68
[2017-04-25 00:56] LABS: GLUCOSE,POINT OF CARE 109 MG/DL (70-110)
[2017-04-25 05:28] VITALS: BP 111/71
[2017-04-25 06:08] LABS: GLUCOSE,POINT OF CARE 131 MG/DL (70-110)
[2017-04-25 06:34] LABS: BASOPHILS % (AUTO) 0.5 % (0.0-2.0); EOSINOPHILS % (AUTO) 4.3 % (1.0-6.0); HEMATOCRIT 36.5 % (41-53); HEMOGLOBIN 12.4 g/dL (13.5-17.5); LYMPHOCYTES # (AUTO) 2.2 K/uL (1.0-4.8); LYMPHOCYTES % (AUTO) 16.6 % (22.0-44.0); MEAN CORPUSCULAR VOLUME 94 fL (80-100); MONOCYTES # (AUTO) 1.3 K/uL (0.1-1.0); MONOCYTES % (AUTO) 10.1 % (2.0-9.0); NEUTROPHILS # (AUTO) 8.9 K/uL (1.8-7.7); NEUTROPHILS % (AUTO) 68.5 % (40.0-70.0); PLATELET COUNT (AUTO) 290 K/uL (150-450); RED BLOOD CELL COUNT(AUTO) 3.88 MIL/uL (4.50-5.90); RED CELL DISTRIBUTION WIDTH 13.8 % (11.5-14.5)
[2017-04-25 07:03] LABS: ANION GAP 4 mmol/L (8-16); CALCIUM, TOTAL 9.6 mg/dL (8.8-10.5); CARBON DIOXIDE 31 mmol/L (22-29); CHLORIDE 103 mmol/L (98-107); CREATININE 0.94 mg/dL (0.60-1.30); GLOMERULAR FILTR. RATE CALC > 60 mL/min (>60); SODIUM SERUM 138 mmol/L (136-145); UREA NITROGEN, BLOOD 11 mg/dL (7-18)
[2017-04-25 07:45] VITALS: BP 109/77
[2017-04-25] MEDS: HALOPERIDOL 10 MG TABLET PO SCH ×2 (08:20→20:06)
[2017-04-25] MEDS: QUEtiapine FUMARATE 100 MG TABLET PO SCH ×2 (08:20→20:06)
[2017-04-25] MEDS: DOCUSATE SODIUM 100 MG CAPSULE PO SCH ×2 (08:20→20:06)
[2017-04-25] MEDS: FLUoxetine HCL 20 MG CAPSULE PO SCH (08:20)
[2017-04-25] MEDS: TRIHEXYPHENIDYL HCL 2 MG TABLET PO SCH ×3 (08:20→20:06)
[2017-04-25] MEDS: LITHIUM CARBONATE 300 MG TABLET PO SCH ×2 (08:21→20:06)
[2017-04-25] MEDS: PANTOPRAZOLE SODIUM 40 MG DR TABLET PO SCH (08:23)
[2017-04-25 10:26] LABS: APPEARANCE,URINE CLEAR (CLEAR); GLUCOSE, URINE (UA) NEGATIVE (NEGATIVE); KETONES,URINE NEGATIVE (NEGATIVE); LEUKOCYTE ESTERASE ,URINE NEGATIVE (NEGATIVE); OCCULT BLOOD,URINE NEGATIVE (NEGATIVE); PROTEIN,URINE NEGATIVE (NEGATIVE)
[2017-04-25 10:28] LABS: ADD UA MICROSCOPIC NO
[2017-04-25 11:36] VITALS: BP 114/77
[2017-04-25 11:47] LABS: GLUCOSE,POINT OF CARE 86 MG/DL (70-110)
[2017-04-25 17:00] VITALS: BP 122/86
[2017-04-25 19:15] VITALS: BP 112/65
[2017-04-25] MEDS: INSULIN ASPART 100 UNITS/ML SQ PRN (20:07)
[2017-04-25 21:42] LABS: GLUCOSE,POINT OF CARE 141 MG/DL (70-110)
[2017-04-26 05:09] VITALS: BP 108/63
[2017-04-26 06:28] LABS: BASOPHILS # (AUTO) 0.07 K/uL (0.00-0.20); BASOPHILS % (AUTO) 0.5 % (0.0-2.0); EOSINOPHILS # (AUTO) 0.58 K/uL (0.00-0.70); EOSINOPHILS % (AUTO) 4.61 % (1.0-6.0); HEMATOCRIT 37.7 % (41-53); HEMOGLOBIN 12.4 g/dL (13.5-17.5); LYMPHOCYTES # (AUTO) 2.4 K/uL (1.0-4.8); LYMPHOCYTES % (AUTO) 19.4 % (22.0-44.0); MEAN CORPUSCULAR HEMOGLOBIN 31.3 pg (26.0-34.0); MEAN CORPUSCULAR HGB CONC 32.8 G/dL (31.0-37.0); MEAN CORPUSCULAR VOLUME 95 fL (80-100); MONOCYTES # (AUTO) 1.2 K/uL (0.1-1.0); MONOCYTES % (AUTO) 9.8 % (2.0-9.0); NEUTROPHILS # (AUTO) 8.2 K/uL (1.8-7.7); NEUTROPHILS % (AUTO) 65.6 % (40.0-70.0); PLATELET COUNT (AUTO) 272 K/uL (150-450); RED BLOOD CELL COUNT(AUTO) 3.95 MIL/uL (4.50-5.90); RED CELL DISTRIBUTION WIDTH 13.4 % (11.5-14.5); WHITE BLOOD COUNT (AUTO) 12.5 K/uL (4.5-11.0)
[2017-04-26 07:08] LABS: GLUCOSE,POINT OF CARE 132 MG/DL (70-110)
[2017-04-26] MEDS: DOCUSATE SODIUM 100 MG CAPSULE PO SCH ×2 (09:26→20:23)
[2017-04-26] MEDS: PANTOPRAZOLE SODIUM 40 MG DR TABLET PO SCH (09:26)
[2017-04-26] MEDS: QUEtiapine FUMARATE 100 MG TABLET PO SCH ×2 (09:27→20:23)
[2017-04-26] MEDS: FLUoxetine HCL 20 MG CAPSULE PO SCH (09:27)
[2017-04-26] MEDS: HALOPERIDOL 10 MG TABLET PO SCH ×2 (09:27→20:23)
[2017-04-26] MEDS: LITHIUM CARBONATE 300 MG TABLET PO SCH ×2 (09:27→20:24)
[2017-04-26] MEDS: TRIHEXYPHENIDYL HCL 2 MG TABLET PO SCH ×3 (09:27→20:23)
[2017-04-26 11:48] LABS: GLUCOSE,POINT OF CARE 130 MG/DL (70-110)
[2017-04-26] MEDS: SULFAMETHOX/TRIMETH DS 800-160 MG/TABLET PO SCH ×2 (11:59→20:23)
[2017-04-26 12:04] VITALS: BP 116/52
[2017-04-26] MEDS: INSULIN ASPART 100 UNITS/ML SQ PRN (17:12)
[2017-04-26 17:43] LABS: GLUCOSE COMMENT 1 Received Meds; GLUCOSE,POINT OF CARE 156 MG/DL (70-110)
[2017-04-26 19:15] VITALS: BP 127/66
[2017-04-26 21:22] LABS: GLUCOSE,POINT OF CARE 123 MG/DL (70-110)
[2017-04-26 23:17] VITALS: BP 135/85
[2017-04-27 03:29] VITALS: BP 137/76
[2017-04-27] MEDS: LORazepam 1 MG TABLET PO PRN (03:30)
[2017-04-27] MEDS: INSULIN ASPART 100 UNITS/ML SQ PRN (06:22)
[2017-04-27 07:17] LABS: GLUCOSE COMMENT 1 Received Meds; GLUCOSE,POINT OF CARE 144 MG/DL (70-110)
[2017-04-27 07:45] VITALS: BP 126/69
[2017-04-27] MEDS: LITHIUM CARBONATE 300 MG TABLET PO SCH (07:59)
[2017-04-27] MEDS: HALOPERIDOL 10 MG TABLET PO SCH (07:59)
[2017-04-27] MEDS: FLUoxetine HCL 20 MG CAPSULE PO SCH (07:59)
[2017-04-27] MEDS: PANTOPRAZOLE SODIUM 40 MG DR TABLET PO SCH (07:59)
[2017-04-27] MEDS: DOCUSATE SODIUM 100 MG CAPSULE PO SCH (07:59)
[2017-04-27] MEDS: SULFAMETHOX/TRIMETH DS 800-160 MG/TABLET PO SCH (07:59)
[2017-04-27] MEDS: QUEtiapine FUMARATE 100 MG TABLET PO SCH (08:00)
[2017-04-27] MEDS: TRIHEXYPHENIDYL HCL 2 MG TABLET PO SCH (08:00)
[2017-04-27 09:42] LABS: BASOPHILS % (AUTO) 0.5 % (0.0-2.0); EOSINOPHILS % (AUTO) 5.3 % (1.0-6.0); HEMATOCRIT 33.8 % (41-53); HEMOGLOBIN 11.5 g/dL (13.5-17.5); LYMPHOCYTES # (AUTO) 1.8 K/uL (1.0-4.8); LYMPHOCYTES % (AUTO) 19.2 % (22.0-44.0); MEAN CORPUSCULAR HEMOGLOBIN 31.5 pg (26.0-34.0); MEAN CORPUSCULAR VOLUME 93 fL (80-100); MONOCYTES # (AUTO) 0.9 K/uL (0.1-1.0); PLATELET COUNT (AUTO) 267 K/uL (150-450); RED BLOOD CELL COUNT(AUTO) 3.65 MIL/uL (4.50-5.90); RED CELL DISTRIBUTION WIDTH 13.2 % (11.5-14.5); WHITE BLOOD COUNT (AUTO) 9.2 K/uL (4.5-11.0)
[2017-04-27] MEDS ORDERED: FLUO-191 PO (09:53)
[2017-04-27] MEDS ORDERED: LITH300C3 PO (09:54)
[2017-04-27] MEDS ORDERED: BACTDSB PO (09:55)
[2017-04-27 11:37] LABS: GLUCOSE,POINT OF CARE 103 MG/DL (70-110)
== END 2017-04-27 13:00 | disposition home or self-care (01) | DRG 918 ==
LOC: EMS 07:38 → 5N 12:40 → 6N 04-14 11:18
PROVIDERS: ADMIT Internal Medicine; ATTEND Internal Medicine
DX: T39.012A Poisoning by aspirin, intentional self-harm, initial encounter (principal); F84.0 Autistic disorder; F25.0 Schizoaffective disorder, bipolar type; E03.9 Hypothyroidism, unspecified; F99 Mental disorder, not otherwise specified; E11.621 Type 2 diabetes mellitus with foot ulcer; G20 Parkinson's disease; I10 Essential (primary) hypertension; I25.10 Atherosclerotic heart disease of native coronary artery without angina pectoris; D72.829 Elevated white blood cell count, unspecified; K21.9 Gastro-esophageal reflux disease without esophagitis; L97.509 Non-pressure chronic ulcer of other part of unspecified foot with unspecified severity; Z91.5 Personal history of self-harm; Z95.5 Presence of coronary angioplasty implant and graft; Y92.098 Other place in other non-institutional residence as the place of occurrence of the external cause; Z91.19 Patient's noncompliance with other medical treatment and regimen; Z22.322 Carrier or suspected carrier of Methicillin resistant Staphylococcus aureus; L03.031 Cellulitis of right toe; L97.519 Non-pressure chronic ulcer of other part of right foot with unspecified severity
CPT/HCPCS: 82962; 83735; 84132; 84443; 87070; 87147; 87205; 93005; 96361; 96365; 96366; 99291; C9113; G0480; G0481; J1200; J1630; J2060; J3490; J7030

== ENCOUNTER 2017-09-27 12:23 | Inpatient (IN) | payer MEDICARE, MEDICAID ==
[~2017-09-27] VITALS: Ht 180.3 cm; Wt 81.6 kg
[~2017-09-27 12:23] MED LIST changes: +BACTDSB PO; -DIVA500T35 PO; -DIVA500T52 PO; +DOCU-275 PO; -FLUO-125 PO; +FLUO-191 PO; +HALO5TAB PO; -LACT30L PO; +LITH300C3 PO; -SENN-30 PO
[2017-09-27 13:20] LABS: BASOPHILS % (AUTO) 0.4 % (0.0-2.0); EOSINOPHILS % (AUTO) 3.3 % (1.0-6.0); HEMATOCRIT 38.9 % (41-53); LYMPHOCYTES % (AUTO) 16.7 % (22.0-44.0); MEAN CORPUSCULAR HEMOGLOBIN 31.2 pg (26.0-34.0); MEAN CORPUSCULAR HGB CONC 33.5 G/dL (31.0-37.0); MEAN CORPUSCULAR VOLUME 93 fL (80-100); MONOCYTES # (AUTO) 1.1 K/uL (0.1-1.0); MONOCYTES % (AUTO) 17.6 % (2.0-9.0); NEUTROPHILS # (AUTO) 3.7 K/uL (1.8-7.7); PLATELET COUNT (AUTO) 223 K/uL (150-450); RED BLOOD CELL COUNT(AUTO) 4.18 MIL/uL (4.50-5.90); RED CELL DISTRIBUTION WIDTH 13.6 % (11.5-14.5)
[2017-09-27 13:44] LABS: ANION GAP 4 mmol/L (8-16); CALCIUM, TOTAL 9.2 mg/dL (8.8-10.5); CARBON DIOXIDE 29 mmol/L (22-29); CHLORIDE 100 mmol/L (98-107); CREATININE 1.08 mg/dL (0.60-1.30); GLOMERULAR FILTR. RATE CALC > 60 mL/min (>60); GLUCOSE,RANDOM 145 mg/dL (70-110); LITHIUM 0.96 mmol/L (0.60-1.20); POTASSIUM 4.3 mmol/L (3.5-5.1); SODIUM SERUM 133 mmol/L (136-145); UREA NITROGEN, BLOOD 15 mg/dL (7-18)
[2017-09-27 13:50] LABS: ALANINE AMINOTRANSFERASE 34 U/L (12-78); ALKALINE PHOSPHATASE 100 U/L (46-116); ASPARTATE AMINOTRANSFERASE 28 U/L (15-37); BILIRUBIN,TOTAL 0.2 mg/dL (0.1-1.0); TOTAL PROTEIN, SERUM 8.4 g/dL (6.4-8.2)
[2017-09-27 15:57] LABS: AMPHET/METH SCREEN,URINE NEGATIVE (NEGATIVE); BARBITURATE SCREEN, URINE NEGATIVE (NEGATIVE); BENZODIAZEPINES SCREEN,URINE NEGATIVE (NEGATIVE); CANNABINOID SCREEN,URINE NEGATIVE (NEGATIVE); COCAINE SCREEN,URINE NEGATIVE (NEGATIVE); METHADONE SCREEN, URINE NEGATIVE (NEGATIVE); OPIATE SCREEN,URINE NEGATIVE (NEGATIVE); PHENCYCLIDINE SCREEN,URINE NEGATIVE (NEGATIVE)
[2017-09-27] MEDS ORDERED: TRIHEXYPHENIDYL HCL 2 MG TABLET PO ONE (18:00)
[2017-09-27] MEDS ORDERED: HALOPERIDOL 5 MG TABLET PO ONE (18:00)
[2017-09-27] MEDS: QUEtiapine FUMARATE 100 MG TABLET PO SCH (20:51)
[2017-09-27 21:30] VITALS: BP 145/86
[2017-09-27] MEDS ORDERED: DEXTROSE 50%-WATER 25 GM/50 ML SYRINGE IVP PRN (21:30)
[2017-09-27] MEDS: LITHIUM CARBONATE 300 MG TABLET PO SCH (21:53)
[2017-09-28 03:00] VITALS: BP 146/66
[2017-09-28 05:43] LABS: GLUCOMETER DEV NAME(LOC) 3EI B; GLUCOSE,POINT OF CARE 150 MG/DL (70-110)
[2017-09-28] MEDS: INSULIN ASPART 100 UNITS/ML - NON-FORMULARY SQ PRN ×3 (07:07→17:33)
[2017-09-28] MEDS: MULTIVITAMINS, THERAPEUTIC TABLET PO SCH (08:13)
[2017-09-28] MEDS: DOCUSATE SODIUM 100 MG CAPSULE PO SCH ×2 (08:13→16:41)
[2017-09-28] MEDS: LITHIUM CARBONATE 300 MG TABLET PO SCH ×2 (08:13→16:42)
[2017-09-28 10:11] VITALS: BP 135/90
[2017-09-28 16:00] VITALS: BP 148/82
[2017-09-28] MEDS: HALOPERIDOL 10 MG TABLET PO SCH (16:41)
[2017-09-28] MEDS: TRIHEXYPHENIDYL HCL 2 MG TABLET PO SCH (16:41)
[2017-09-28] MEDS ORDERED: LITHIUM CARBONATE 300 MG TABLET PO SCH (17:00)
[2017-09-28] MEDS: QUEtiapine FUMARATE 100 MG TABLET PO SCH (20:26)
[2017-09-28] MEDS: ZOLPIDEM TARTRATE 10 MG TABLET PO PRN (22:07)
[2017-09-29 06:52] LABS: GLUCOMETER DEV NAME(LOC) 3EI B; GLUCOSE,POINT OF CARE 140 MG/DL (70-110)
[2017-09-29 08:02] LABS: CHOL/HDL RATIO 7.3 (4.2-7.3); THYROID STIMULATING HORMONE 2.8 uIU/mL (0.36-3.74)
[2017-09-29 08:15] VITALS: BP 145/87
[2017-09-29] MEDS: ASPIRIN 81 MG CHEWABLE TABLET PO SCH (08:40)
[2017-09-29] MEDS: OMEPRAZOLE 20 MG CAPSULE PO SCH (08:40)
[2017-09-29] MEDS: MULTIVITAMINS, THERAPEUTIC TABLET PO SCH (08:40)
[2017-09-29] MEDS: TRIHEXYPHENIDYL HCL 2 MG TABLET PO SCH ×3 (08:41→17:07)
[2017-09-29] MEDS: HALOPERIDOL 10 MG TABLET PO SCH ×2 (08:41→17:07)
[2017-09-29] MEDS: DOCUSATE SODIUM 100 MG CAPSULE PO SCH ×2 (08:41→17:06)
[2017-09-29] MEDS: LITHIUM CARBONATE 300 MG TABLET PO SCH ×2 (08:42→17:06)
[2017-09-29] MEDS: FLUoxetine HCL 20 MG CAPSULE PO SCH (08:43)
[2017-09-29 08:45] LABS: HEMOGLOBIN A1C 6.3 % (4.5-6.2)
[2017-09-29] MEDS: AmLODIPine BESYLATE 2.5 MG TABLET PO SCH (09:00)
[2017-09-29 16:00] VITALS: BP 154/85
[2017-09-29] MEDS: QUEtiapine FUMARATE 100 MG TABLET PO SCH (20:58)
[2017-09-29] MEDS: INSULIN ASPART 100 UNITS/ML - NON-FORMULARY SQ PRN (21:31)
[2017-09-29] MEDS: ZOLPIDEM TARTRATE 10 MG TABLET PO PRN (22:56)
[2017-09-30 06:28] LABS: GLUCOMETER DEV NAME(LOC) 3EI B; GLUCOSE,POINT OF CARE 131 MG/DL (70-110)
[2017-09-30] MEDS: MULTIVITAMINS, THERAPEUTIC TABLET PO SCH (09:39)
[2017-09-30] MEDS: OMEPRAZOLE 20 MG CAPSULE PO SCH (09:40)
[2017-09-30] MEDS: HALOPERIDOL 10 MG TABLET PO SCH ×2 (09:40→17:16)
[2017-09-30] MEDS: TRIHEXYPHENIDYL HCL 2 MG TABLET PO SCH ×3 (09:40→17:16)
[2017-09-30] MEDS: DOCUSATE SODIUM 100 MG CAPSULE PO SCH ×2 (09:40→17:16)
[2017-09-30] MEDS: FLUoxetine HCL 20 MG CAPSULE PO SCH (09:40)
[2017-09-30] MEDS: AmLODIPine BESYLATE 2.5 MG TABLET PO SCH (09:40)
[2017-09-30] MEDS: ASPIRIN 81 MG CHEWABLE TABLET PO SCH (09:41)
[2017-09-30] MEDS: LITHIUM CARBONATE 300 MG TABLET PO SCH ×2 (10:21→17:16)
[2017-09-30 11:48] VITALS: BP 151/91
[2017-09-30 17:00] VITALS: BP 138/86
[2017-09-30] MEDS: QUEtiapine FUMARATE 100 MG TABLET PO SCH (21:56)
[2017-10-01 06:23] LABS: GLUCOMETER DEV NAME(LOC) 3EI B; GLUCOSE,POINT OF CARE 150 MG/DL (70-110)
[2017-10-01] MEDS: INSULIN ASPART 100 UNITS/ML - NON-FORMULARY SQ PRN ×3 (07:06→21:44)
[2017-10-01 09:05] VITALS: BP 125/77
[2017-10-01] MEDS: AmLODIPine BESYLATE 2.5 MG TABLET PO SCH (09:10)
[2017-10-01] MEDS: DOCUSATE SODIUM 100 MG CAPSULE PO SCH ×2 (09:10→16:20)
[2017-10-01] MEDS: TRIHEXYPHENIDYL HCL 2 MG TABLET PO SCH ×4 (09:10→17:00)
[2017-10-01] MEDS: OMEPRAZOLE 20 MG CAPSULE PO SCH (09:10)
[2017-10-01] MEDS: FLUoxetine HCL 20 MG CAPSULE PO SCH (09:10)
[2017-10-01] MEDS: HALOPERIDOL 10 MG TABLET PO SCH ×2 (09:10→16:20)
[2017-10-01] MEDS: ASPIRIN 81 MG CHEWABLE TABLET PO SCH (09:11)
[2017-10-01] MEDS: LITHIUM CARBONATE 300 MG TABLET PO SCH ×3 (09:11→17:00)
[2017-10-01] MEDS: MULTIVITAMINS, THERAPEUTIC TABLET PO SCH (09:11)
[2017-10-01 17:44] VITALS: BP 158/88
[2017-10-01] MEDS: QUEtiapine FUMARATE 100 MG TABLET PO SCH (20:35)
[2017-10-02 06:07] LABS: GLUCOMETER DEV NAME(LOC) 3EI B; GLUCOSE,POINT OF CARE 137 MG/DL (70-110)
[2017-10-02] MEDS: LITHIUM CARBONATE 300 MG TABLET PO SCH ×3 (09:00→16:22)
[2017-10-02] MEDS: TRIHEXYPHENIDYL HCL 2 MG TABLET PO SCH ×4 (09:00→16:22)
[2017-10-02] MEDS: HALOPERIDOL 10 MG TABLET PO SCH ×3 (09:00→16:22)
[2017-10-02] MEDS: DOCUSATE SODIUM 100 MG CAPSULE PO SCH ×2 (09:00→16:22)
[2017-10-02] MEDS: OMEPRAZOLE 20 MG CAPSULE PO SCH (09:18)
[2017-10-02] MEDS: ASPIRIN 81 MG CHEWABLE TABLET PO SCH (09:19)
[2017-10-02] MEDS: AmLODIPine BESYLATE 2.5 MG TABLET PO SCH (09:19)
[2017-10-02] MEDS: FLUoxetine HCL 20 MG CAPSULE PO SCH (09:19)
[2017-10-02] MEDS: MULTIVITAMINS, THERAPEUTIC TABLET PO SCH (09:24)
[2017-10-02 12:58] VITALS: BP 125/82
[2017-10-02 16:42] VITALS: BP 132/92
[2017-10-02] MEDS: QUEtiapine FUMARATE 100 MG TABLET PO SCH (20:04)
[2017-10-02] MEDS: INSULIN ASPART 100 UNITS/ML - NON-FORMULARY SQ PRN (20:29)
[2017-10-03 05:39] LABS: GLUCOMETER DEV NAME(LOC) 3EI B; GLUCOSE,POINT OF CARE 128 MG/DL (70-110)
[2017-10-03] MEDS: DOCUSATE SODIUM 100 MG CAPSULE PO SCH ×3 (08:59→19:22)
[2017-10-03] MEDS: OMEPRAZOLE 20 MG CAPSULE PO SCH (08:59)
[2017-10-03] MEDS: ASPIRIN 81 MG CHEWABLE TABLET PO SCH (08:59)
[2017-10-03] MEDS: MULTIVITAMINS, THERAPEUTIC TABLET PO SCH (08:59)
[2017-10-03] MEDS: HALOPERIDOL 10 MG TABLET PO SCH ×3 (09:00→19:22)
[2017-10-03] MEDS: FLUoxetine HCL 20 MG CAPSULE PO SCH (09:00)
[2017-10-03] MEDS: LITHIUM CARBONATE 300 MG TABLET PO SCH ×3 (09:01→19:22)
[2017-10-03] MEDS: TRIHEXYPHENIDYL HCL 2 MG TABLET PO SCH ×4 (09:01→19:22)
[2017-10-03] MEDS: AmLODIPine BESYLATE 2.5 MG TABLET PO SCH (09:02)
[2017-10-03 09:33] VITALS: BP 124/74
[2017-10-03 16:57] VITALS: BP 142/87
[2017-10-03] MEDS: INSULIN ASPART 100 UNITS/ML - NON-FORMULARY SQ PRN (20:24)
[2017-10-03] MEDS: QUEtiapine FUMARATE 100 MG TABLET PO SCH (20:28)
[2017-10-04 05:53] LABS: GLUCOMETER DEV NAME(LOC) 3EI B; GLUCOSE,POINT OF CARE 139 MG/DL (70-110)
[2017-10-04 08:30] VITALS: BP 164/98
[2017-10-04] MEDS: TRIHEXYPHENIDYL HCL 2 MG TABLET PO SCH ×4 (08:58→16:20)
[2017-10-04] MEDS: MULTIVITAMINS, THERAPEUTIC TABLET PO SCH (08:58)
[2017-10-04] MEDS: ASPIRIN 81 MG CHEWABLE TABLET PO SCH (08:59)
[2017-10-04] MEDS: LITHIUM CARBONATE 300 MG TABLET PO SCH ×2 (08:59→16:20)
[2017-10-04] MEDS: DOCUSATE SODIUM 100 MG CAPSULE PO SCH ×2 (08:59→16:20)
[2017-10-04] MEDS: FLUoxetine HCL 20 MG CAPSULE PO SCH (09:00)
[2017-10-04] MEDS: HALOPERIDOL 10 MG TABLET PO SCH ×2 (09:00→16:20)
[2017-10-04] MEDS: AmLODIPine BESYLATE 2.5 MG TABLET PO SCH (09:00)
[2017-10-04] MEDS: OMEPRAZOLE 20 MG CAPSULE PO SCH (09:00)
[2017-10-04] MEDS: BACITRACIN 28.4 GM OINTMENT TP SCH (09:53)
[2017-10-04 10:15] VITALS: BP 146/90
[2017-10-04 11:49] LABS: GLUCOMETER DEV NAME(LOC) 3EI B; GLUCOSE,POINT OF CARE 116 MG/DL (70-110)
[2017-10-04 16:37] LABS: GLUCOMETER DEV NAME(LOC) 3EI B; GLUCOSE,POINT OF CARE 124 MG/DL (70-110)
[2017-10-04 16:45] VITALS: BP 140/86
[2017-10-04] MEDS: QUEtiapine FUMARATE 100 MG TABLET PO SCH (21:11)
[2017-10-04 21:23] LABS: GLUCOMETER DEV NAME(LOC) 3EI B; GLUCOSE,POINT OF CARE 100 MG/DL (70-110)
[2017-10-05 06:09] LABS: GLUCOMETER DEV NAME(LOC) 3EI B; GLUCOSE,POINT OF CARE 156 MG/DL (70-110)
[2017-10-05 06:39] VITALS: BP 127/82
[2017-10-05] MEDS: INSULIN ASPART 100 UNITS/ML - NON-FORMULARY SQ PRN (06:58)
[2017-10-05] MEDS: OMEPRAZOLE 20 MG CAPSULE PO SCH (08:29)
[2017-10-05] MEDS: HALOPERIDOL 10 MG TABLET PO SCH ×2 (08:29→16:06)
[2017-10-05] MEDS: LITHIUM CARBONATE 300 MG TABLET PO SCH ×2 (08:29→16:06)
[2017-10-05] MEDS: TRIHEXYPHENIDYL HCL 2 MG TABLET PO SCH ×3 (08:29→16:05)
[2017-10-05] MEDS: BACITRACIN 28.4 GM OINTMENT TP SCH (08:30)
[2017-10-05] MEDS: ASPIRIN 81 MG CHEWABLE TABLET PO SCH (08:30)
[2017-10-05] MEDS: FLUoxetine HCL 20 MG CAPSULE PO SCH (08:30)
[2017-10-05] MEDS: MULTIVITAMINS, THERAPEUTIC TABLET PO SCH (08:30)
[2017-10-05] MEDS: DOCUSATE SODIUM 100 MG CAPSULE PO SCH ×2 (08:30→16:06)
[2017-10-05] MEDS: AmLODIPine BESYLATE 2.5 MG TABLET PO SCH (08:30)
[2017-10-05 08:50] VITALS: BP 141/82
[2017-10-05 19:20] VITALS: BP 138/79
[2017-10-05] MEDS: QUEtiapine FUMARATE 100 MG TABLET PO SCH (20:13)
[2017-10-06] VITALS: BP 140/73
[2017-10-06 05:58] LABS: GLUCOMETER DEV NAME(LOC) 3EI B; GLUCOSE,POINT OF CARE 129 MG/DL (70-110)
[2017-10-06 08:15] VITALS: BP 149/88
[2017-10-06] MEDS: TRIHEXYPHENIDYL HCL 2 MG TABLET PO SCH ×3 (08:41→18:15)
[2017-10-06] MEDS: OMEPRAZOLE 20 MG CAPSULE PO SCH (08:41)
[2017-10-06] MEDS: FLUoxetine HCL 20 MG CAPSULE PO SCH (08:41)
[2017-10-06] MEDS: DOCUSATE SODIUM 100 MG CAPSULE PO SCH ×2 (08:41→18:08)
[2017-10-06] MEDS: HALOPERIDOL 10 MG TABLET PO SCH ×2 (08:42→18:09)
[2017-10-06] MEDS: AmLODIPine BESYLATE 2.5 MG TABLET PO SCH (08:42)
[2017-10-06] MEDS: LITHIUM CARBONATE 300 MG TABLET PO SCH ×2 (08:42→18:09)
[2017-10-06] MEDS: ASPIRIN 81 MG CHEWABLE TABLET PO SCH (08:42)
[2017-10-06] MEDS: MULTIVITAMINS, THERAPEUTIC TABLET PO SCH (08:44)
[2017-10-06] MEDS: BACITRACIN 28.4 GM OINTMENT TP SCH (09:00)
[2017-10-06] MEDS: INSULIN ASPART 100 UNITS/ML - NON-FORMULARY SQ PRN (15:16)
[2017-10-06 19:25] VITALS: BP 145/90
[2017-10-06] MEDS: QUEtiapine FUMARATE 100 MG TABLET PO SCH (20:10)
[2017-10-07] MEDS: MetFORMIN HCL 500 MG TABLET PO SCH (07:14)
[2017-10-07] MEDS: MULTIVITAMINS, THERAPEUTIC TABLET PO SCH (08:00)
[2017-10-07 08:15] VITALS: BP 149/94
[2017-10-07] MEDS: HALOPERIDOL 10 MG TABLET PO SCH ×2 (09:00→17:00)
[2017-10-07] MEDS: OMEPRAZOLE 20 MG CAPSULE PO SCH (09:00)
[2017-10-07] MEDS: LITHIUM CARBONATE 300 MG TABLET PO SCH ×2 (09:00→17:00)
[2017-10-07] MEDS: FLUoxetine HCL 20 MG CAPSULE PO SCH (09:00)
[2017-10-07] MEDS: AmLODIPine BESYLATE 2.5 MG TABLET PO SCH (09:00)
[2017-10-07] MEDS: TRIHEXYPHENIDYL HCL 2 MG TABLET PO SCH ×3 (09:00→17:00)
[2017-10-07] MEDS: ASPIRIN 81 MG CHEWABLE TABLET PO SCH (09:00)
[2017-10-07] MEDS: DOCUSATE SODIUM 100 MG CAPSULE PO SCH ×2 (09:00→17:00)
[2017-10-07] MEDS: BACITRACIN 28.4 GM OINTMENT TP SCH (09:00)
[2017-10-07] MEDS ORDERED: LORazepam 2 MG/ML VIAL ONE (16:28)
[2017-10-07] MEDS ORDERED: DiphenhydrAMINE HCL 50 MG/ML VIAL ONE (16:29)
[2017-10-07] MEDS ORDERED: HALOPERIDOL LACTATE 5 MG/ML VIAL ONE (16:29)
[2017-10-07] MEDS ORDERED: HALOPERIDOL LACTATE 5 MG/ML VIAL IM ONE (16:30)
[2017-10-07] MEDS ORDERED: LORazepam 2 MG/ML VIAL IM ONE (16:30)
[2017-10-07] MEDS ORDERED: DiphenhydrAMINE HCL 50 MG/ML VIAL IM ONE (16:30)
[2017-10-07 18:38] VITALS: BP 147/95
[2017-10-07] MEDS: QUEtiapine FUMARATE 100 MG TABLET PO SCH (20:43)
[2017-10-08 05:33] LABS: GLUCOMETER DEV NAME(LOC) 3EI B; GLUCOSE,POINT OF CARE 116 MG/DL (70-110)
[2017-10-08] MEDS: MetFORMIN HCL 500 MG TABLET PO SCH (06:46)
[2017-10-08] MEDS: TRIHEXYPHENIDYL HCL 2 MG TABLET PO SCH ×2 (09:14→12:51)
[2017-10-08] MEDS: ASPIRIN 81 MG CHEWABLE TABLET PO SCH (09:14)
[2017-10-08] MEDS: DOCUSATE SODIUM 100 MG CAPSULE PO SCH ×2 (09:14→16:11)
[2017-10-08] MEDS: FLUoxetine HCL 20 MG CAPSULE PO SCH (09:15)
[2017-10-08] MEDS: HALOPERIDOL 10 MG TABLET PO SCH ×2 (09:15→16:11)
[2017-10-08] MEDS: LITHIUM CARBONATE 300 MG TABLET PO SCH ×2 (09:15→16:13)
[2017-10-08] MEDS: BACITRACIN 28.4 GM OINTMENT TP SCH (09:16)
[2017-10-08] MEDS: AmLODIPine BESYLATE 2.5 MG TABLET PO SCH (09:16)
[2017-10-08] MEDS: MULTIVITAMINS, THERAPEUTIC TABLET PO SCH (09:18)
[2017-10-08] MEDS: OMEPRAZOLE 20 MG CAPSULE PO SCH (09:19)
[2017-10-08 09:51] VITALS: BP 115/88
[2017-10-08] MEDS: INSULIN ASPART 100 UNITS/ML - NON-FORMULARY SQ PRN ×2 (11:54→21:30)
[2017-10-08] MEDS: TRIHEXYPHENIDYL HCL 5 MG TABLET PO SCH (16:13)
[2017-10-08 17:19] VITALS: BP 98/48
[2017-10-08 18:00] VITALS: BP 119/78
[2017-10-08] MEDS: QUEtiapine FUMARATE 100 MG TABLET PO SCH (20:32)
[2017-10-09 06:32] LABS: GLUCOMETER DEV NAME(LOC) 3EI B; GLUCOSE,POINT OF CARE 155 MG/DL (70-110)
[2017-10-09] MEDS: MetFORMIN HCL 500 MG TABLET PO SCH (06:39)
[2017-10-09] MEDS: INSULIN ASPART 100 UNITS/ML - NON-FORMULARY SQ PRN ×2 (06:39→20:33)
[2017-10-09 08:15] VITALS: BP 132/89
[2017-10-09] MEDS: MULTIVITAMINS, THERAPEUTIC TABLET PO SCH (08:51)
[2017-10-09] MEDS: ASPIRIN 81 MG CHEWABLE TABLET PO SCH (08:51)
[2017-10-09] MEDS: OMEPRAZOLE 20 MG CAPSULE PO SCH (08:51)
[2017-10-09] MEDS: TRIHEXYPHENIDYL HCL 5 MG TABLET PO SCH ×3 (08:51→15:59)
[2017-10-09] MEDS: DOCUSATE SODIUM 100 MG CAPSULE PO SCH ×2 (08:51→15:59)
[2017-10-09] MEDS: AmLODIPine BESYLATE 2.5 MG TABLET PO SCH (08:52)
[2017-10-09] MEDS: LITHIUM CARBONATE 300 MG TABLET PO SCH ×2 (08:52→15:59)
[2017-10-09] MEDS: HALOPERIDOL 10 MG TABLET PO SCH ×2 (08:52→15:59)
[2017-10-09] MEDS: BACITRACIN 28.4 GM OINTMENT TP SCH (08:53)
[2017-10-09] MEDS: FLUoxetine HCL 20 MG CAPSULE PO SCH (08:53)
[2017-10-09 16:25] VITALS: BP 142/55
[2017-10-09] MEDS: QUEtiapine FUMARATE 100 MG TABLET PO SCH (20:10)
[2017-10-10 03:58] VITALS: BP 130/96
[2017-10-10 06:22] LABS: GLUCOMETER DEV NAME(LOC) 3EI B; GLUCOSE,POINT OF CARE 123 MG/DL (70-110)
[2017-10-10] MEDS: MetFORMIN HCL 500 MG TABLET PO SCH (06:52)
[2017-10-10 08:15] VITALS: BP 137/80
[2017-10-10] MEDS: TRIHEXYPHENIDYL HCL 5 MG TABLET PO SCH ×3 (08:56→16:12)
[2017-10-10] MEDS: FLUoxetine HCL 20 MG CAPSULE PO SCH (08:56)
[2017-10-10] MEDS: LITHIUM CARBONATE 300 MG TABLET PO SCH ×2 (08:56→16:12)
[2017-10-10] MEDS: DOCUSATE SODIUM 100 MG CAPSULE PO SCH ×2 (08:57→16:12)
[2017-10-10] MEDS: OMEPRAZOLE 20 MG CAPSULE PO SCH (08:57)
[2017-10-10] MEDS: AmLODIPine BESYLATE 2.5 MG TABLET PO SCH (08:57)
[2017-10-10] MEDS: MULTIVITAMINS, THERAPEUTIC TABLET PO SCH (08:57)
[2017-10-10] MEDS: HALOPERIDOL 10 MG TABLET PO SCH ×2 (08:58→16:12)
[2017-10-10] MEDS: BACITRACIN 28.4 GM OINTMENT TP SCH (08:58)
[2017-10-10] MEDS: ASPIRIN 81 MG CHEWABLE TABLET PO SCH (08:59)
[2017-10-10] MEDS: INSULIN ASPART 100 UNITS/ML - NON-FORMULARY SQ PRN (13:20)
[2017-10-10 16:41] VITALS: BP 138/86
[2017-10-10] MEDS: QUEtiapine FUMARATE 100 MG TABLET PO SCH (20:16)
[2017-10-11 06:02] LABS: GLUCOMETER DEV NAME(LOC) 3EI B; GLUCOSE,POINT OF CARE 168 MG/DL (70-110)
[2017-10-11] MEDS: MetFORMIN HCL 500 MG TABLET PO SCH (07:10)
[2017-10-11] MEDS: INSULIN ASPART 100 UNITS/ML - NON-FORMULARY SQ PRN (07:22)
[2017-10-11 08:00] VITALS: BP 154/52
[2017-10-11] MEDS: ASPIRIN 81 MG CHEWABLE TABLET PO SCH (08:01)
[2017-10-11] MEDS: AmLODIPine BESYLATE 2.5 MG TABLET PO SCH (08:01)
[2017-10-11] MEDS: OMEPRAZOLE 20 MG CAPSULE PO SCH (08:01)
[2017-10-11] MEDS: LITHIUM CARBONATE 300 MG TABLET PO SCH ×2 (08:02→16:06)
[2017-10-11] MEDS: MULTIVITAMINS, THERAPEUTIC TABLET PO SCH (08:03)
[2017-10-11] MEDS: HALOPERIDOL 10 MG TABLET PO SCH ×2 (08:03→16:06)
[2017-10-11] MEDS: TRIHEXYPHENIDYL HCL 5 MG TABLET PO SCH ×3 (08:03→16:06)
[2017-10-11] MEDS: DOCUSATE SODIUM 100 MG CAPSULE PO SCH ×2 (08:03→16:05)
[2017-10-11] MEDS: FLUoxetine HCL 20 MG CAPSULE PO SCH (08:03)
[2017-10-11] MEDS: BACITRACIN 28.4 GM OINTMENT TP SCH (08:04)
[2017-10-11 11:27] LABS: GLUCOMETER DEV NAME(LOC) 3EI B; GLUCOSE,POINT OF CARE 108 MG/DL (70-110)
[2017-10-11 17:09] VITALS: BP 142/82
[2017-10-11] MEDS: QUEtiapine FUMARATE 100 MG TABLET PO SCH (20:30)
[2017-10-12 00:25] VITALS: BP 141/95
[2017-10-12 05:38] LABS: GLUCOMETER DEV NAME(LOC) 3EI B; GLUCOSE,POINT OF CARE 153 MG/DL (70-110)
[2017-10-12] MEDS: MetFORMIN HCL 500 MG TABLET PO SCH (07:15)
[2017-10-12] MEDS: INSULIN ASPART 100 UNITS/ML - NON-FORMULARY SQ PRN ×3 (07:16→17:00)
[2017-10-12 08:00] VITALS: BP 124/74
[2017-10-12] MEDS: DOCUSATE SODIUM 100 MG CAPSULE PO SCH ×2 (08:58→15:55)
[2017-10-12] MEDS: HALOPERIDOL 10 MG TABLET PO SCH ×2 (08:59→15:54)
[2017-10-12] MEDS: OMEPRAZOLE 20 MG CAPSULE PO SCH (08:59)
[2017-10-12] MEDS: LITHIUM CARBONATE 300 MG TABLET PO SCH ×2 (08:59→15:54)
[2017-10-12] MEDS: MULTIVITAMINS, THERAPEUTIC TABLET PO SCH (08:59)
[2017-10-12] MEDS: TRIHEXYPHENIDYL HCL 5 MG TABLET PO SCH ×3 (08:59→15:54)
[2017-10-12] MEDS: AmLODIPine BESYLATE 2.5 MG TABLET PO SCH (08:59)
[2017-10-12] MEDS: ASPIRIN 81 MG CHEWABLE TABLET PO SCH (08:59)
[2017-10-12] MEDS: FLUoxetine HCL 20 MG CAPSULE PO SCH (08:59)
[2017-10-12] MEDS: BACITRACIN 28.4 GM OINTMENT TP SCH (12:20)
[2017-10-12 15:05] LABS: GLUCOMETER DEV NAME(LOC) 3EX 1; GLUCOSE,POINT OF CARE 142 MG/DL (70-110)
[2017-10-12 15:05] LABS: GLUCOMETER DEV NAME(LOC) 3EX 1; GLUCOSE,POINT OF CARE 136 MG/DL (70-110)
[2017-10-12 15:05] LABS: GLUCOMETER DEV NAME(LOC) 3EX 1; GLUCOSE,POINT OF CARE 141 MG/DL (70-110)
[2017-10-12 15:05] LABS: GLUCOMETER DEV NAME(LOC) 3EX 1; GLUCOSE,POINT OF CARE 144 MG/DL (70-110)
[2017-10-12 15:05] LABS: GLUCOMETER DEV NAME(LOC) 3EX 1; GLUCOSE,POINT OF CARE 123 MG/DL (70-110)
[2017-10-12 15:05] LABS: GLUCOMETER DEV NAME(LOC) 3EX 1; GLUCOSE,POINT OF CARE 115 MG/DL (70-110)
[2017-10-12 15:05] LABS: GLUCOMETER DEV NAME(LOC) 3EX 1; GLUCOSE,POINT OF CARE 186 MG/DL (70-110)
[2017-10-12 15:05] LABS: GLUCOMETER DEV NAME(LOC) 3EX 1; GLUCOSE,POINT OF CARE 147 MG/DL (70-110)
[2017-10-12 15:05] LABS: GLUCOMETER DEV NAME(LOC) 3EX 1; GLUCOSE,POINT OF CARE 142 MG/DL (70-110)
[2017-10-12 15:05] LABS: GLUCOMETER DEV NAME(LOC) 3EX 1; GLUCOSE,POINT OF CARE 129 MG/DL (70-110)
[2017-10-12 15:05] LABS: GLUCOMETER DEV NAME(LOC) 3EX 1; GLUCOSE,POINT OF CARE 109 MG/DL (70-110)
[2017-10-12 15:07] LABS: GLUCOMETER DEV NAME(LOC) 3EX 1; GLUCOSE,POINT OF CARE 157 MG/DL (70-110)
[2017-10-12 15:07] LABS: GLUCOMETER DEV NAME(LOC) 3EX 1; GLUCOSE,POINT OF CARE 149 MG/DL (70-110)
[2017-10-12 15:07] LABS: GLUCOMETER DEV NAME(LOC) 3EX 1; GLUCOSE,POINT OF CARE 95 MG/DL (70-110)
[2017-10-12 15:08] LABS: GLUCOMETER DEV NAME(LOC) 3EX 1; GLUCOSE,POINT OF CARE 120 MG/DL (70-110)
[2017-10-12 15:08] LABS: GLUCOMETER DEV NAME(LOC) 3EX 1; GLUCOSE,POINT OF CARE 137 MG/DL (70-110)
[2017-10-12 15:08] LABS: GLUCOMETER DEV NAME(LOC) 3EX 1; GLUCOSE,POINT OF CARE 124 MG/DL (70-110)
[2017-10-12 15:08] LABS: GLUCOMETER DEV NAME(LOC) 3EX 1; GLUCOSE,POINT OF CARE 117 MG/DL (70-110)
[2017-10-12 15:08] LABS: GLUCOMETER DEV NAME(LOC) 3EX 1; GLUCOSE,POINT OF CARE 145 MG/DL (70-110)
[2017-10-12 15:08] LABS: GLUCOMETER DEV NAME(LOC) 3EX 1; GLUCOSE,POINT OF CARE 146 MG/DL (70-110)
[2017-10-12 15:08] LABS: GLUCOMETER DEV NAME(LOC) 3EX 1; GLUCOSE,POINT OF CARE 127 MG/DL (70-110)
[2017-10-12 15:08] LABS: GLUCOMETER DEV NAME(LOC) 3EX 1; GLUCOSE,POINT OF CARE 146 MG/DL (70-110)
[2017-10-12 15:08] LABS: GLUCOMETER DEV NAME(LOC) 3EX 1; GLUCOSE,POINT OF CARE 113 MG/DL (70-110)
[2017-10-12 15:08] LABS: GLUCOMETER DEV NAME(LOC) 3EX 1; GLUCOSE,POINT OF CARE 116 MG/DL (70-110)
[2017-10-12 15:08] LABS: GLUCOMETER DEV NAME(LOC) 3EX 1; GLUCOSE,POINT OF CARE 185 MG/DL (70-110)
[2017-10-12 15:08] LABS: GLUCOMETER DEV NAME(LOC) 3EX 1; GLUCOSE,POINT OF CARE 161 MG/DL (70-110)
[2017-10-12 15:08] LABS: GLUCOMETER DEV NAME(LOC) 3EX 1; GLUCOSE,POINT OF CARE 118 MG/DL (70-110)
[2017-10-12 15:09] LABS: GLUCOMETER DEV NAME(LOC) 3EX 1; GLUCOSE,POINT OF CARE 140 MG/DL (70-110)
[2017-10-12 15:09] LABS: GLUCOMETER DEV NAME(LOC) 3EX 1; GLUCOSE,POINT OF CARE 108 MG/DL (70-110)
[2017-10-12 15:09] LABS: GLUCOMETER DEV NAME(LOC) 3EX 1; GLUCOSE,POINT OF CARE 105 MG/DL (70-110)
[2017-10-12 15:09] LABS: GLUCOMETER DEV NAME(LOC) 3EX 1; GLUCOSE,POINT OF CARE 155 MG/DL (70-110)
[2017-10-12 15:09] LABS: GLUCOMETER DEV NAME(LOC) 3EX 1; GLUCOSE,POINT OF CARE 153 MG/DL (70-110)
[2017-10-12 15:09] LABS: GLUCOMETER DEV NAME(LOC) 3EX 1; GLUCOSE,POINT OF CARE 121 MG/DL (70-110)
[2017-10-12 15:09] LABS: GLUCOMETER DEV NAME(LOC) 3EX 1; GLUCOSE,POINT OF CARE 130 MG/DL (70-110)
[2017-10-12 15:09] LABS: GLUCOMETER DEV NAME(LOC) 3EX 1; GLUCOSE,POINT OF CARE 131 MG/DL (70-110)
[2017-10-12 15:09] LABS: GLUCOMETER DEV NAME(LOC) 3EX 1; GLUCOSE,POINT OF CARE 105 MG/DL (70-110)
[2017-10-12 15:09] LABS: GLUCOMETER DEV NAME(LOC) 3EX 1; GLUCOSE,POINT OF CARE 124 MG/DL (70-110)
[2017-10-12 15:58] LABS: GLUCOMETER DEV NAME(LOC) 3EX 1; GLUCOSE,POINT OF CARE 169 MG/DL (70-110)
[2017-10-12 17:12] VITALS: BP 142/75
[2017-10-12] MEDS: QUEtiapine FUMARATE 100 MG TABLET PO SCH (20:09)
[2017-10-12 20:17] LABS: GLUCOMETER DEV NAME(LOC) 3EX 1; GLUCOSE,POINT OF CARE 140 MG/DL (70-110)
[2017-10-13] MEDS: LORazepam 2 MG TABLET PO PRN (03:11)
[2017-10-13 03:39] VITALS: BP 155/103
[2017-10-13 06:08] LABS: GLUCOMETER DEV NAME(LOC) 3EI B; GLUCOSE,POINT OF CARE 120 MG/DL (70-110)
[2017-10-13] MEDS: MetFORMIN HCL 500 MG TABLET PO SCH (06:40)
[2017-10-13] MEDS: FLUoxetine HCL 20 MG CAPSULE PO SCH (08:24)
[2017-10-13] MEDS: TRIHEXYPHENIDYL HCL 5 MG TABLET PO SCH ×3 (08:24→16:52)
[2017-10-13] MEDS: MULTIVITAMINS, THERAPEUTIC TABLET PO SCH (08:24)
[2017-10-13] MEDS: ASPIRIN 81 MG CHEWABLE TABLET PO SCH (08:24)
[2017-10-13] MEDS: OMEPRAZOLE 20 MG CAPSULE PO SCH (08:24)
[2017-10-13] MEDS: DOCUSATE SODIUM 100 MG CAPSULE PO SCH ×2 (08:24→16:52)
[2017-10-13] MEDS: BACITRACIN 28.4 GM OINTMENT TP SCH (08:25)
[2017-10-13] MEDS: LITHIUM CARBONATE 300 MG TABLET PO SCH ×2 (08:25→16:52)
[2017-10-13] MEDS: HALOPERIDOL 10 MG TABLET PO SCH ×2 (08:25→16:52)
[2017-10-13] MEDS: AmLODIPine BESYLATE 2.5 MG TABLET PO SCH (08:25)
[2017-10-13 11:00] VITALS: BP 140/98
[2017-10-13 11:52] LABS: GLUCOMETER DEV NAME(LOC) 3EX 1; GLUCOSE,POINT OF CARE 110 MG/DL (70-110)
[2017-10-13] MEDS: INSULIN ASPART 100 UNITS/ML - NON-FORMULARY SQ PRN ×2 (12:53→20:34)
[2017-10-13 17:00] VITALS: BP 136/82
[2017-10-13 17:02] LABS: GLUCOMETER DEV NAME(LOC) 3EX 1; GLUCOSE,POINT OF CARE 125 MG/DL (70-110)
[2017-10-13] MEDS: QUEtiapine FUMARATE 100 MG TABLET PO SCH (20:25)
[2017-10-13 20:33] LABS: GLUCOMETER DEV NAME(LOC) 3EX 1; GLUCOSE,POINT OF CARE 169 MG/DL (70-110)
[2017-10-14 05:05] VITALS: BP 139/90
[2017-10-14 06:12] LABS: GLUCOMETER DEV NAME(LOC) 3EI B; GLUCOSE,POINT OF CARE 130 MG/DL (70-110)
[2017-10-14] MEDS: MetFORMIN HCL 500 MG TABLET PO SCH (07:03)
[2017-10-14] MEDS: DOCUSATE SODIUM 100 MG CAPSULE PO SCH ×2 (08:04→16:30)
[2017-10-14] MEDS: MULTIVITAMINS, THERAPEUTIC TABLET PO SCH (08:04)
[2017-10-14] MEDS: ASPIRIN 81 MG CHEWABLE TABLET PO SCH (08:05)
[2017-10-14] MEDS: OMEPRAZOLE 20 MG CAPSULE PO SCH (08:05)
[2017-10-14] MEDS: TRIHEXYPHENIDYL HCL 5 MG TABLET PO SCH ×3 (08:06→16:30)
[2017-10-14] MEDS: FLUoxetine HCL 20 MG CAPSULE PO SCH (08:06)
[2017-10-14] MEDS: AmLODIPine BESYLATE 2.5 MG TABLET PO SCH (08:06)
[2017-10-14] MEDS: LITHIUM CARBONATE 300 MG TABLET PO SCH ×2 (08:07→16:31)
[2017-10-14] MEDS: HALOPERIDOL 10 MG TABLET PO SCH ×2 (08:07→16:30)
[2017-10-14 09:20] VITALS: BP 144/75
[2017-10-14 11:49] LABS: GLUCOMETER DEV NAME(LOC) 3EX 1; GLUCOSE,POINT OF CARE 111 MG/DL (70-110)
[2017-10-14] MEDS: INSULIN ASPART 100 UNITS/ML - NON-FORMULARY SQ PRN (11:51)
[2017-10-14 16:37] LABS: GLUCOMETER DEV NAME(LOC) 3EX 1; GLUCOSE,POINT OF CARE 129 MG/DL (70-110)
[2017-10-14 17:20] VITALS: BP 133/78
[2017-10-14] MEDS: QUEtiapine FUMARATE 100 MG TABLET PO SCH (20:16)
[2017-10-14 20:17] LABS: GLUCOMETER DEV NAME(LOC) 3EX 1; GLUCOSE,POINT OF CARE 116 MG/DL (70-110)
[2017-10-15 05:24] VITALS: BP 162/60
[2017-10-15 06:17] LABS: GLUCOMETER DEV NAME(LOC) 3EI B; GLUCOSE,POINT OF CARE 137 MG/DL (70-110)
[2017-10-15] MEDS: MetFORMIN HCL 500 MG TABLET PO SCH (07:11)
[2017-10-15] MEDS: DOCUSATE SODIUM 100 MG CAPSULE PO SCH ×2 (08:50→16:56)
[2017-10-15] MEDS: OMEPRAZOLE 20 MG CAPSULE PO SCH (08:50)
[2017-10-15] MEDS: ASPIRIN 81 MG CHEWABLE TABLET PO SCH (08:51)
[2017-10-15] MEDS: LITHIUM CARBONATE 300 MG TABLET PO SCH ×2 (08:51→16:57)
[2017-10-15] MEDS: TRIHEXYPHENIDYL HCL 5 MG TABLET PO SCH ×3 (08:51→16:56)
[2017-10-15] MEDS: HALOPERIDOL 10 MG TABLET PO SCH ×2 (08:52→16:56)
[2017-10-15] MEDS: FLUoxetine HCL 20 MG CAPSULE PO SCH (08:52)
[2017-10-15] MEDS: AmLODIPine BESYLATE 2.5 MG TABLET PO SCH (08:52)
[2017-10-15] MEDS: MULTIVITAMINS, THERAPEUTIC TABLET PO SCH (08:53)
[2017-10-15 09:30] VITALS: BP 131/72
[2017-10-15] MEDS: INSULIN ASPART 100 UNITS/ML - NON-FORMULARY SQ PRN ×2 (11:51→17:29)
[2017-10-15 11:53] LABS: GLUCOMETER DEV NAME(LOC) 3EX 1; GLUCOSE,POINT OF CARE 130 MG/DL (70-110)
[2017-10-15 16:56] VITALS: BP 143/81
[2017-10-15 17:17] LABS: GLUCOMETER DEV NAME(LOC) 3EX 1; GLUCOSE,POINT OF CARE 149 MG/DL (70-110)
[2017-10-15] MEDS: QUEtiapine FUMARATE 100 MG TABLET PO SCH (20:40)
[2017-10-15 20:52] LABS: GLUCOMETER DEV NAME(LOC) 3EX 1; GLUCOSE,POINT OF CARE 138 MG/DL (70-110)
[2017-10-16 05:47] LABS: GLUCOMETER DEV NAME(LOC) 3EI B; GLUCOSE,POINT OF CARE 145 MG/DL (70-110)
[2017-10-16] MEDS: MetFORMIN HCL 500 MG TABLET PO SCH (07:03)
[2017-10-16] MEDS: INSULIN ASPART 100 UNITS/ML - NON-FORMULARY SQ PRN (07:20)
[2017-10-16 08:00] VITALS: BP 133/82
[2017-10-16] MEDS: MULTIVITAMINS, THERAPEUTIC TABLET PO SCH (08:11)
[2017-10-16] MEDS: DOCUSATE SODIUM 100 MG CAPSULE PO SCH ×2 (08:11→16:08)
[2017-10-16] MEDS: TRIHEXYPHENIDYL HCL 5 MG TABLET PO SCH ×3 (08:11→16:08)
[2017-10-16] MEDS: ASPIRIN 81 MG CHEWABLE TABLET PO SCH (08:11)
[2017-10-16] MEDS: OMEPRAZOLE 20 MG CAPSULE PO SCH (08:12)
[2017-10-16] MEDS: FLUoxetine HCL 20 MG CAPSULE PO SCH (08:12)
[2017-10-16] MEDS: AmLODIPine BESYLATE 2.5 MG TABLET PO SCH (08:12)
[2017-10-16] MEDS: HALOPERIDOL 10 MG TABLET PO SCH ×2 (08:12→16:08)
[2017-10-16] MEDS: LITHIUM CARBONATE 300 MG TABLET PO SCH ×2 (08:12→16:08)
[2017-10-16 11:28] LABS: GLUCOMETER DEV NAME(LOC) 3EX 1; GLUCOSE,POINT OF CARE 101 MG/DL (70-110)
[2017-10-16 16:15] VITALS: BP 136/87
[2017-10-16 17:13] LABS: GLUCOMETER DEV NAME(LOC) 3EX 1; GLUCOSE,POINT OF CARE 129 MG/DL (70-110)
[2017-10-16] MEDS: QUEtiapine FUMARATE 100 MG TABLET PO SCH (20:19)
[2017-10-17 06:18] LABS: GLUCOMETER DEV NAME(LOC) 3EI B; GLUCOSE,POINT OF CARE 124 MG/DL (70-110)
[2017-10-17] MEDS: MetFORMIN HCL 500 MG TABLET PO SCH (07:08)
[2017-10-17 08:00] VITALS: BP 136/88
[2017-10-17] MEDS: LITHIUM CARBONATE 300 MG TABLET PO SCH ×2 (08:18→16:22)
[2017-10-17] MEDS: HALOPERIDOL 10 MG TABLET PO SCH ×2 (08:18→16:22)
[2017-10-17] MEDS: AmLODIPine BESYLATE 2.5 MG TABLET PO SCH (08:18)
[2017-10-17] MEDS: MULTIVITAMINS, THERAPEUTIC TABLET PO SCH (08:18)
[2017-10-17] MEDS: ASPIRIN 81 MG CHEWABLE TABLET PO SCH (08:18)
[2017-10-17] MEDS: DOCUSATE SODIUM 100 MG CAPSULE PO SCH ×2 (08:18→16:22)
[2017-10-17] MEDS: TRIHEXYPHENIDYL HCL 5 MG TABLET PO SCH ×3 (08:18→16:22)
[2017-10-17] MEDS: OMEPRAZOLE 20 MG CAPSULE PO SCH (08:19)
[2017-10-17] MEDS: FLUoxetine HCL 20 MG CAPSULE PO SCH (08:19)
[2017-10-17] MEDS: LORazepam 2 MG TABLET PO PRN (10:24)
[2017-10-17 17:05] LABS: GLUCOMETER DEV NAME(LOC) 3EX 1; GLUCOSE,POINT OF CARE 106 MG/DL (70-110)
[2017-10-17 18:19] VITALS: BP 145/90
[2017-10-17] MEDS: QUEtiapine FUMARATE 100 MG TABLET PO SCH (20:22)
[2017-10-18 06:04] VITALS: BP 143/81
[2017-10-18 07:08] LABS: GLUCOMETER DEV NAME(LOC) 3EI B; GLUCOSE,POINT OF CARE 135 MG/DL (70-110)
[2017-10-18] MEDS: MetFORMIN HCL 500 MG TABLET PO SCH (07:14)
[2017-10-18] MEDS: ASPIRIN 81 MG CHEWABLE TABLET PO SCH (08:22)
[2017-10-18] MEDS: MULTIVITAMINS, THERAPEUTIC TABLET PO SCH (08:22)
[2017-10-18] MEDS: OMEPRAZOLE 20 MG CAPSULE PO SCH (08:22)
[2017-10-18] MEDS: FLUoxetine HCL 20 MG CAPSULE PO SCH (08:22)
[2017-10-18] MEDS: TRIHEXYPHENIDYL HCL 5 MG TABLET PO SCH ×3 (08:22→16:28)
[2017-10-18] MEDS: DOCUSATE SODIUM 100 MG CAPSULE PO SCH ×2 (08:22→16:28)
[2017-10-18] MEDS: LITHIUM CARBONATE 300 MG TABLET PO SCH ×2 (08:23→16:28)
[2017-10-18] MEDS: HALOPERIDOL 10 MG TABLET PO SCH ×2 (08:23→16:29)
[2017-10-18] MEDS: AmLODIPine BESYLATE 2.5 MG TABLET PO SCH (08:23)
[2017-10-18 08:34] VITALS: BP 148/87
[2017-10-18 16:10] VITALS: BP 151/76
[2017-10-18 17:02] LABS: GLUCOMETER DEV NAME(LOC) 3EX 1; GLUCOSE,POINT OF CARE 121 MG/DL (70-110)
[2017-10-18] MEDS: INSULIN ASPART 100 UNITS/ML - NON-FORMULARY SQ PRN (17:10)
[2017-10-18] MEDS: QUEtiapine FUMARATE 100 MG TABLET PO SCH (20:43)
[2017-10-19 05:32] LABS: GLUCOMETER DEV NAME(LOC) 3EI B; GLUCOSE,POINT OF CARE 159 MG/DL (70-110)
[2017-10-19 05:50] VITALS: BP 136/90
[2017-10-19] MEDS: MetFORMIN HCL 500 MG TABLET PO SCH (07:11)
[2017-10-19] MEDS: INSULIN ASPART 100 UNITS/ML - NON-FORMULARY SQ PRN ×2 (07:21→11:51)
[2017-10-19 08:52] VITALS: BP 143/62
[2017-10-19] MEDS: OMEPRAZOLE 20 MG CAPSULE PO SCH (09:15)
[2017-10-19] MEDS: MULTIVITAMINS, THERAPEUTIC TABLET PO SCH (09:15)
[2017-10-19] MEDS: TRIHEXYPHENIDYL HCL 5 MG TABLET PO SCH ×3 (09:16→16:37)
[2017-10-19] MEDS: ASPIRIN 81 MG CHEWABLE TABLET PO SCH (09:16)
[2017-10-19] MEDS: AmLODIPine BESYLATE 2.5 MG TABLET PO SCH (09:17)
[2017-10-19] MEDS: LITHIUM CARBONATE 300 MG TABLET PO SCH ×2 (09:17→16:37)
[2017-10-19] MEDS: HALOPERIDOL 10 MG TABLET PO SCH ×2 (09:17→16:38)
[2017-10-19] MEDS: FLUoxetine HCL 20 MG CAPSULE PO SCH (09:18)
[2017-10-19] MEDS: DOCUSATE SODIUM 100 MG CAPSULE PO SCH ×2 (09:27→16:38)
[2017-10-19 11:53] LABS: GLUCOMETER DEV NAME(LOC) 3EX 1; GLUCOSE,POINT OF CARE 115 MG/DL (70-110)
[2017-10-19 16:42] LABS: GLUCOMETER DEV NAME(LOC) 3EX 1; GLUCOSE,POINT OF CARE 135 MG/DL (70-110)
[2017-10-19 16:53] VITALS: BP 129/95
[2017-10-19] MEDS: QUEtiapine FUMARATE 100 MG TABLET PO SCH (20:19)
[2017-10-19 20:33] LABS: GLUCOMETER DEV NAME(LOC) 3EX 1; GLUCOSE,POINT OF CARE 115 MG/DL (70-110)
[2017-10-20 05:07] VITALS: BP 123/74
[2017-10-20 06:09] LABS: GLUCOMETER DEV NAME(LOC) 3EI B; GLUCOSE,POINT OF CARE 202 MG/DL (70-110)
[2017-10-20] MEDS: INSULIN ASPART 100 UNITS/ML - NON-FORMULARY SQ PRN ×2 (06:57→17:01)
[2017-10-20] MEDS: MetFORMIN HCL 500 MG TABLET PO SCH (07:04)
[2017-10-20] MEDS: HALOPERIDOL 10 MG TABLET PO SCH ×2 (09:04→15:59)
[2017-10-20] MEDS: OMEPRAZOLE 20 MG CAPSULE PO SCH (09:05)
[2017-10-20] MEDS: TRIHEXYPHENIDYL HCL 5 MG TABLET PO SCH ×3 (09:05→15:59)
[2017-10-20] MEDS: ASPIRIN 81 MG CHEWABLE TABLET PO SCH (09:05)
[2017-10-20] MEDS: FLUoxetine HCL 20 MG CAPSULE PO SCH (09:05)
[2017-10-20] MEDS: MULTIVITAMINS, THERAPEUTIC TABLET PO SCH (09:05)
[2017-10-20] MEDS: DOCUSATE SODIUM 100 MG CAPSULE PO SCH ×2 (09:05→15:59)
[2017-10-20] MEDS: AmLODIPine BESYLATE 2.5 MG TABLET PO SCH (09:05)
[2017-10-20 10:28] VITALS: BP 134/69
[2017-10-20] MEDS: LITHIUM CARBONATE 300 MG TABLET PO SCH ×2 (13:23→15:59)
[2017-10-20] MEDS: MUPIROCIN CALCIUM 2% 22 GM OINTMENT NASAL SCH ×2 (13:24→16:00)
[2017-10-20 16:03] LABS: GLUCOMETER DEV NAME(LOC) 3EX 1; GLUCOSE,POINT OF CARE 152 MG/DL (70-110)
[2017-10-20 17:39] VITALS: BP 140/95
[2017-10-20] MEDS: QUEtiapine FUMARATE 100 MG TABLET PO SCH (20:17)
[2017-10-20 20:42] LABS: GLUCOMETER DEV NAME(LOC) 3EX 1; GLUCOSE,POINT OF CARE 110 MG/DL (70-110)
[2017-10-21 05:57] VITALS: BP 151/92
[2017-10-21 06:08] LABS: GLUCOMETER DEV NAME(LOC) 3EI B; GLUCOSE,POINT OF CARE 152 MG/DL (70-110)
[2017-10-21] MEDS: INSULIN ASPART 100 UNITS/ML - NON-FORMULARY SQ PRN (07:08)
[2017-10-21] MEDS: MetFORMIN HCL 500 MG TABLET PO SCH (07:11)
[2017-10-21] MEDS: DOCUSATE SODIUM 100 MG CAPSULE PO SCH ×2 (08:22→16:15)
[2017-10-21] MEDS: TRIHEXYPHENIDYL HCL 5 MG TABLET PO SCH ×3 (08:22→16:15)
[2017-10-21] MEDS: ASPIRIN 81 MG CHEWABLE TABLET PO SCH (08:24)
[2017-10-21] MEDS: MULTIVITAMINS, THERAPEUTIC TABLET PO SCH (08:24)
[2017-10-21] MEDS: LITHIUM CARBONATE 300 MG TABLET PO SCH ×2 (08:24→16:16)
[2017-10-21] MEDS: FLUoxetine HCL 20 MG CAPSULE PO SCH (08:24)
[2017-10-21] MEDS: HALOPERIDOL 10 MG TABLET PO SCH ×2 (08:24→16:16)
[2017-10-21] MEDS: OMEPRAZOLE 20 MG CAPSULE PO SCH (08:24)
[2017-10-21] MEDS: AmLODIPine BESYLATE 2.5 MG TABLET PO SCH (08:24)
[2017-10-21] MEDS: MUPIROCIN CALCIUM 2% 22 GM OINTMENT NASAL SCH ×2 (08:28→16:16)
[2017-10-21 09:04] VITALS: BP 152/75
[2017-10-21 16:37] LABS: GLUCOMETER DEV NAME(LOC) 3EX 1; GLUCOSE,POINT OF CARE 133 MG/DL (70-110)
[2017-10-21 19:15] VITALS: BP 136/66
[2017-10-21] MEDS: QUEtiapine FUMARATE 100 MG TABLET PO SCH (20:14)
[2017-10-22 05:44] LABS: GLUCOMETER DEV NAME(LOC) 3EI B; GLUCOSE,POINT OF CARE 133 MG/DL (70-110)
[2017-10-22] MEDS: MetFORMIN HCL 500 MG TABLET PO SCH (07:09)
[2017-10-22 08:00] VITALS: BP 118/86
[2017-10-22] MEDS: TRIHEXYPHENIDYL HCL 5 MG TABLET PO SCH ×3 (08:32→16:39)
[2017-10-22] MEDS: HALOPERIDOL 10 MG TABLET PO SCH ×2 (08:33→16:44)
[2017-10-22] MEDS: LITHIUM CARBONATE 300 MG TABLET PO SCH ×2 (08:33→16:41)
[2017-10-22] MEDS: ASPIRIN 81 MG CHEWABLE TABLET PO SCH (08:33)
[2017-10-22] MEDS: FLUoxetine HCL 20 MG CAPSULE PO SCH (08:33)
[2017-10-22] MEDS: DOCUSATE SODIUM 100 MG CAPSULE PO SCH ×2 (08:33→16:40)
[2017-10-22] MEDS: AmLODIPine BESYLATE 2.5 MG TABLET PO SCH (08:34)
[2017-10-22] MEDS: OMEPRAZOLE 20 MG CAPSULE PO SCH (08:34)
[2017-10-22] MEDS: MULTIVITAMINS, THERAPEUTIC TABLET PO SCH (08:38)
[2017-10-22] MEDS: MUPIROCIN CALCIUM 2% 22 GM OINTMENT NASAL SCH ×2 (09:00→16:41)
[2017-10-22 16:58] LABS: GLUCOMETER DEV NAME(LOC) 3EX 1; GLUCOSE,POINT OF CARE 153 MG/DL (70-110)
[2017-10-22 17:07] VITALS: BP 102/75
[2017-10-22] MEDS: INSULIN ASPART 100 UNITS/ML - NON-FORMULARY SQ PRN (17:25)
[2017-10-22] MEDS: QUEtiapine FUMARATE 100 MG TABLET PO SCH (21:10)
[2017-10-23 06:04] LABS: GLUCOMETER DEV NAME(LOC) 3EX 1; GLUCOSE,POINT OF CARE 139 MG/DL (70-110)
[2017-10-23] MEDS: MetFORMIN HCL 500 MG TABLET PO SCH (06:39)
[2017-10-23 09:00] VITALS: BP 127/86
[2017-10-23] MEDS: OMEPRAZOLE 20 MG CAPSULE PO SCH (09:01)
[2017-10-23] MEDS: MULTIVITAMINS, THERAPEUTIC TABLET PO SCH (09:01)
[2017-10-23] MEDS: ASPIRIN 81 MG CHEWABLE TABLET PO SCH (09:01)
[2017-10-23] MEDS: MUPIROCIN CALCIUM 2% 22 GM OINTMENT NASAL SCH ×2 (09:01→15:56)
[2017-10-23] MEDS: DOCUSATE SODIUM 100 MG CAPSULE PO SCH ×2 (09:01→17:13)
[2017-10-23] MEDS: FLUoxetine HCL 20 MG CAPSULE PO SCH (09:02)
[2017-10-23] MEDS: LITHIUM CARBONATE 300 MG TABLET PO SCH ×2 (09:02→15:56)
[2017-10-23] MEDS: AmLODIPine BESYLATE 2.5 MG TABLET PO SCH (09:02)
[2017-10-23] MEDS: HALOPERIDOL 10 MG TABLET PO SCH ×2 (09:02→15:56)
[2017-10-23] MEDS: TRIHEXYPHENIDYL HCL 5 MG TABLET PO SCH ×3 (09:03→15:56)
[2017-10-23] MEDS: INSULIN ASPART 100 UNITS/ML - NON-FORMULARY SQ PRN (17:09)
[2017-10-23 17:23] LABS: GLUCOMETER DEV NAME(LOC) 3EX 1; GLUCOSE,POINT OF CARE 172 MG/DL (70-110)
[2017-10-23 18:00] VITALS: BP 127/76
[2017-10-23] MEDS: QUEtiapine FUMARATE 100 MG TABLET PO SCH (20:07)
[2017-10-24 04:43] VITALS: BP 135/74
[2017-10-24 05:33] LABS: GLUCOMETER DEV NAME(LOC) 3EI B; GLUCOSE,POINT OF CARE 131 MG/DL (70-110)
[2017-10-24] MEDS: MetFORMIN HCL 500 MG TABLET PO SCH (07:07)
[2017-10-24] MEDS: MULTIVITAMINS, THERAPEUTIC TABLET PO SCH (08:32)
[2017-10-24] MEDS: DOCUSATE SODIUM 100 MG CAPSULE PO SCH ×2 (08:33→16:09)
[2017-10-24] MEDS: MUPIROCIN CALCIUM 2% 22 GM OINTMENT NASAL SCH ×2 (08:33→16:08)
[2017-10-24] MEDS: TRIHEXYPHENIDYL HCL 5 MG TABLET PO SCH ×3 (08:33→16:08)
[2017-10-24] MEDS: ASPIRIN 81 MG CHEWABLE TABLET PO SCH (08:33)
[2017-10-24] MEDS: AmLODIPine BESYLATE 2.5 MG TABLET PO SCH (08:34)
[2017-10-24] MEDS: FLUoxetine HCL 20 MG CAPSULE PO SCH (08:34)
[2017-10-24] MEDS: HALOPERIDOL 10 MG TABLET PO SCH ×2 (08:34→16:09)
[2017-10-24] MEDS: OMEPRAZOLE 20 MG CAPSULE PO SCH (08:34)
[2017-10-24] MEDS: LITHIUM CARBONATE 300 MG TABLET PO SCH ×2 (08:34→16:09)
[2017-10-24 09:35] VITALS: BP 132/79
[2017-10-24 16:53] LABS: GLUCOMETER DEV NAME(LOC) 3EX 1; GLUCOSE,POINT OF CARE 136 MG/DL (70-110)
[2017-10-24 17:05] VITALS: BP 139/82
[2017-10-24] MEDS: QUEtiapine FUMARATE 100 MG TABLET PO SCH (20:23)
[2017-10-25 05:28] LABS: GLUCOMETER DEV NAME(LOC) 3EI B; GLUCOSE,POINT OF CARE 110 MG/DL (70-110)
[2017-10-25] MEDS: MetFORMIN HCL 500 MG TABLET PO SCH (07:15)
[2017-10-25] MEDS: ASPIRIN 81 MG CHEWABLE TABLET PO SCH (08:43)
[2017-10-25] MEDS: MULTIVITAMINS, THERAPEUTIC TABLET PO SCH (08:43)
[2017-10-25] MEDS: LITHIUM CARBONATE 300 MG TABLET PO SCH ×2 (08:43→16:41)
[2017-10-25] MEDS: DOCUSATE SODIUM 100 MG CAPSULE PO SCH ×2 (08:43→16:42)
[2017-10-25] MEDS: TRIHEXYPHENIDYL HCL 5 MG TABLET PO SCH ×3 (08:43→16:41)
[2017-10-25] MEDS: OMEPRAZOLE 20 MG CAPSULE PO SCH (08:44)
[2017-10-25] MEDS: FLUoxetine HCL 20 MG CAPSULE PO SCH (08:44)
[2017-10-25] MEDS: AmLODIPine BESYLATE 2.5 MG TABLET PO SCH (08:44)
[2017-10-25] MEDS: HALOPERIDOL 10 MG TABLET PO SCH ×2 (08:44→16:41)
[2017-10-25 10:01] VITALS: BP 147/88
[2017-10-25 16:52] LABS: GLUCOMETER DEV NAME(LOC) 3EX 1; GLUCOSE,POINT OF CARE 102 MG/DL (70-110)
[2017-10-25 17:00] VITALS: BP 142/88
[2017-10-25] MEDS: QUEtiapine FUMARATE 100 MG TABLET PO SCH (20:33)
[2017-10-26 06:17] LABS: GLUCOMETER DEV NAME(LOC) 3EI B; GLUCOSE,POINT OF CARE 138 MG/DL (70-110)
[2017-10-26] MEDS: MetFORMIN HCL 500 MG TABLET PO SCH (07:09)
[2017-10-26 08:00] VITALS: BP 160/80
[2017-10-26] MEDS: LITHIUM CARBONATE 300 MG TABLET PO SCH ×2 (08:10→16:48)
[2017-10-26] MEDS: HALOPERIDOL 10 MG TABLET PO SCH ×2 (08:10→16:49)
[2017-10-26] MEDS: OMEPRAZOLE 20 MG CAPSULE PO SCH (08:10)
[2017-10-26] MEDS: DOCUSATE SODIUM 100 MG CAPSULE PO SCH ×2 (08:10→16:48)
[2017-10-26] MEDS: AmLODIPine BESYLATE 2.5 MG TABLET PO SCH (08:10)
[2017-10-26] MEDS: ASPIRIN 81 MG CHEWABLE TABLET PO SCH (08:10)
[2017-10-26] MEDS: FLUoxetine HCL 20 MG CAPSULE PO SCH (08:10)
[2017-10-26] MEDS: TRIHEXYPHENIDYL HCL 5 MG TABLET PO SCH ×3 (08:11→16:48)
[2017-10-26] MEDS: MULTIVITAMINS, THERAPEUTIC TABLET PO SCH (08:11)
[2017-10-26 17:05] VITALS: BP 142/78
[2017-10-26 17:18] LABS: GLUCOMETER DEV NAME(LOC) 3EX 1; GLUCOSE,POINT OF CARE 116 MG/DL (70-110)
[2017-10-26] MEDS: QUEtiapine FUMARATE 100 MG TABLET PO SCH (20:31)
[2017-10-27 04:32] VITALS: BP 149/76
[2017-10-27 06:03] LABS: GLUCOMETER DEV NAME(LOC) 3EI B; GLUCOSE,POINT OF CARE 122 MG/DL (70-110)
[2017-10-27] MEDS: MetFORMIN HCL 500 MG TABLET PO SCH (07:00)
[2017-10-27 08:37] VITALS: BP 154/84
[2017-10-27] MEDS: MULTIVITAMINS, THERAPEUTIC TABLET PO SCH (08:55)
[2017-10-27] MEDS: ASPIRIN 81 MG CHEWABLE TABLET PO SCH (08:55)
[2017-10-27] MEDS: DOCUSATE SODIUM 100 MG CAPSULE PO SCH ×2 (08:55→16:11)
[2017-10-27] MEDS: TRIHEXYPHENIDYL HCL 5 MG TABLET PO SCH ×3 (08:55→16:11)
[2017-10-27] MEDS: OMEPRAZOLE 20 MG CAPSULE PO SCH (08:55)
[2017-10-27] MEDS: LITHIUM CARBONATE 300 MG TABLET PO SCH ×2 (08:56→16:12)
[2017-10-27] MEDS: HALOPERIDOL 10 MG TABLET PO SCH ×2 (08:57→16:11)
[2017-10-27] MEDS: FLUoxetine HCL 20 MG CAPSULE PO SCH (08:57)
[2017-10-27] MEDS: AmLODIPine BESYLATE 2.5 MG TABLET PO SCH (08:59)
[2017-10-27 16:23] LABS: GLUCOMETER DEV NAME(LOC) 3EX 1; GLUCOSE,POINT OF CARE 120 MG/DL (70-110)
[2017-10-27 18:29] VITALS: BP 138/80
[2017-10-27] MEDS: QUEtiapine FUMARATE 100 MG TABLET PO SCH (20:07)
[2017-10-28 05:56] VITALS: BP 133/74
[2017-10-28 06:13] LABS: GLUCOMETER DEV NAME(LOC) 3EI B; GLUCOSE,POINT OF CARE 121 MG/DL (70-110)
[2017-10-28] MEDS: MetFORMIN HCL 500 MG TABLET PO SCH (06:54)
[2017-10-28] MEDS: TRIHEXYPHENIDYL HCL 5 MG TABLET PO SCH ×3 (08:04→16:08)
[2017-10-28] MEDS: FLUoxetine HCL 20 MG CAPSULE PO SCH (08:05)
[2017-10-28] MEDS: OMEPRAZOLE 20 MG CAPSULE PO SCH (08:05)
[2017-10-28] MEDS: LITHIUM CARBONATE 300 MG TABLET PO SCH ×2 (08:05→16:15)
[2017-10-28] MEDS: DOCUSATE SODIUM 100 MG CAPSULE PO SCH ×2 (08:05→16:08)
[2017-10-28] MEDS: ASPIRIN 81 MG CHEWABLE TABLET PO SCH (08:06)
[2017-10-28] MEDS: HALOPERIDOL 10 MG TABLET PO SCH ×2 (08:06→16:09)
[2017-10-28] MEDS: AmLODIPine BESYLATE 2.5 MG TABLET PO SCH (08:06)
[2017-10-28] MEDS: MULTIVITAMINS, THERAPEUTIC TABLET PO SCH (08:07)
[2017-10-28 08:43] VITALS: BP 126/81
[2017-10-28 16:38] LABS: GLUCOMETER DEV NAME(LOC) 3EX 1; GLUCOSE,POINT OF CARE 102 MG/DL (70-110)
[2017-10-28 16:53] VITALS: BP 137/78
[2017-10-28] MEDS: QUEtiapine FUMARATE 100 MG TABLET PO SCH (20:09)
[2017-10-29] MEDS: MetFORMIN HCL 500 MG TABLET PO SCH (06:50)
[2017-10-29 06:59] LABS: GLUCOMETER DEV NAME(LOC) 3EI B; GLUCOSE,POINT OF CARE 121 MG/DL (70-110)
[2017-10-29 07:07] VITALS: BP 140/74
[2017-10-29] MEDS: TRIHEXYPHENIDYL HCL 5 MG TABLET PO SCH ×3 (08:25→17:20)
[2017-10-29] MEDS: DOCUSATE SODIUM 100 MG CAPSULE PO SCH ×2 (08:25→17:19)
[2017-10-29] MEDS: ASPIRIN 81 MG CHEWABLE TABLET PO SCH (08:25)
[2017-10-29] MEDS: MULTIVITAMINS, THERAPEUTIC TABLET PO SCH (08:25)
[2017-10-29] MEDS: HALOPERIDOL 10 MG TABLET PO SCH ×2 (08:26→17:19)
[2017-10-29] MEDS: LITHIUM CARBONATE 300 MG TABLET PO SCH ×2 (08:26→17:19)
[2017-10-29] MEDS: AmLODIPine BESYLATE 2.5 MG TABLET PO SCH (08:26)
[2017-10-29] MEDS: OMEPRAZOLE 20 MG CAPSULE PO SCH (08:26)
[2017-10-29] MEDS: FLUoxetine HCL 20 MG CAPSULE PO SCH (08:27)
[2017-10-29 09:20] VITALS: BP 138/82
[2017-10-29 16:43] VITALS: BP 135/89
[2017-10-29] MEDS: INSULIN ASPART 100 UNITS/ML - NON-FORMULARY SQ PRN (17:13)
[2017-10-29 17:18] LABS: GLUCOMETER DEV NAME(LOC) 3EX 1; GLUCOSE,POINT OF CARE 144 MG/DL (70-110)
[2017-10-29] MEDS: QUEtiapine FUMARATE 100 MG TABLET PO SCH (20:44)
[2017-10-29] MEDS: ZOLPIDEM TARTRATE 10 MG TABLET PO PRN (20:44)
[2017-10-30 06:14] LABS: GLUCOMETER DEV NAME(LOC) 3EI B; GLUCOSE,POINT OF CARE 156 MG/DL (70-110)
[2017-10-30] MEDS: INSULIN ASPART 100 UNITS/ML - NON-FORMULARY SQ PRN (07:05)
[2017-10-30] MEDS: MetFORMIN HCL 500 MG TABLET PO SCH (07:18)
[2017-10-30] MEDS: MULTIVITAMINS, THERAPEUTIC TABLET PO SCH (08:00)
[2017-10-30] MEDS: FLUoxetine HCL 20 MG CAPSULE PO SCH (09:00)
[2017-10-30] MEDS: ASPIRIN 81 MG CHEWABLE TABLET PO SCH (09:00)
[2017-10-30] MEDS: OMEPRAZOLE 20 MG CAPSULE PO SCH (09:00)
[2017-10-30] MEDS: AmLODIPine BESYLATE 2.5 MG TABLET PO SCH (09:00)
[2017-10-30] MEDS: TRIHEXYPHENIDYL HCL 5 MG TABLET PO SCH ×3 (09:00→16:30)
[2017-10-30] MEDS: HALOPERIDOL 10 MG TABLET PO SCH ×2 (09:17→16:30)
[2017-10-30] MEDS: DOCUSATE SODIUM 100 MG CAPSULE PO SCH ×2 (09:17→16:30)
[2017-10-30] MEDS: LITHIUM CARBONATE 300 MG TABLET PO SCH ×3 (09:17→18:42)
[2017-10-30 16:54] LABS: GLUCOMETER DEV NAME(LOC) 3EX 1; GLUCOSE,POINT OF CARE 138 MG/DL (70-110)
[2017-10-30] MEDS: QUEtiapine FUMARATE 100 MG TABLET PO SCH (20:09)
[2017-10-30 21:20] VITALS: BP 139/80
[2017-10-31 01:20] VITALS: BP 133/87
[2017-10-31] MEDS: ZOLPIDEM TARTRATE 10 MG TABLET PO PRN (01:26)
[2017-10-31 05:57] LABS: GLUCOMETER DEV NAME(LOC) 3EI B; GLUCOSE,POINT OF CARE 167 MG/DL (70-110)
[2017-10-31] MEDS: MetFORMIN HCL 500 MG TABLET PO SCH (06:56)
[2017-10-31] MEDS: ASPIRIN 81 MG CHEWABLE TABLET PO SCH (08:32)
[2017-10-31] MEDS: OMEPRAZOLE 20 MG CAPSULE PO SCH (08:32)
[2017-10-31] MEDS: MULTIVITAMINS, THERAPEUTIC TABLET PO SCH (08:32)
[2017-10-31] MEDS: LITHIUM CARBONATE 300 MG TABLET PO SCH ×2 (08:33→18:13)
[2017-10-31] MEDS: DOCUSATE SODIUM 100 MG CAPSULE PO SCH ×2 (08:33→18:12)
[2017-10-31] MEDS: TRIHEXYPHENIDYL HCL 5 MG TABLET PO SCH ×3 (08:33→18:12)
[2017-10-31] MEDS: FLUoxetine HCL 20 MG CAPSULE PO SCH (08:33)
[2017-10-31] MEDS: HALOPERIDOL 10 MG TABLET PO SCH ×2 (08:34→18:13)
[2017-10-31] MEDS: AmLODIPine BESYLATE 2.5 MG TABLET PO SCH (08:34)
[2017-10-31 10:47] VITALS: BP 160/62
[2017-10-31 16:27] LABS: GLUCOMETER DEV NAME(LOC) 3EX 1; GLUCOSE,POINT OF CARE 138 MG/DL (70-110)
[2017-10-31 17:00] VITALS: BP 133/78
[2017-10-31] MEDS: QUEtiapine FUMARATE 100 MG TABLET PO SCH (20:08)
[2017-11-01 05:59] VITALS: BP 130/81
[2017-11-01 06:03] LABS: GLUCOMETER DEV NAME(LOC) 3EX 1; GLUCOSE,POINT OF CARE 111 MG/DL (70-110)
[2017-11-01] MEDS: MetFORMIN HCL 500 MG TABLET PO SCH (06:55)
[2017-11-01 09:30] VITALS: BP 140/60
[2017-11-01] MEDS: TRIHEXYPHENIDYL HCL 5 MG TABLET PO SCH ×3 (09:41→17:42)
[2017-11-01] MEDS: ASPIRIN 81 MG CHEWABLE TABLET PO SCH (09:42)
[2017-11-01] MEDS: MULTIVITAMINS, THERAPEUTIC TABLET PO SCH (09:42)
[2017-11-01] MEDS: LITHIUM CARBONATE 300 MG TABLET PO SCH ×2 (09:42→17:42)
[2017-11-01] MEDS: FLUoxetine HCL 20 MG CAPSULE PO SCH (09:42)
[2017-11-01] MEDS: HALOPERIDOL 10 MG TABLET PO SCH ×2 (09:42→17:42)
[2017-11-01] MEDS: AmLODIPine BESYLATE 5 MG TABLET PO SCH (09:42)
[2017-11-01] MEDS: DOCUSATE SODIUM 100 MG CAPSULE PO SCH ×2 (09:43→17:42)
[2017-11-01] MEDS: OMEPRAZOLE 20 MG CAPSULE PO SCH (09:50)
[2017-11-01 16:35] VITALS: BP 135/78
[2017-11-01 16:53] LABS: GLUCOMETER DEV NAME(LOC) 3EX 1; GLUCOSE,POINT OF CARE 142 MG/DL (70-110)
[2017-11-01] MEDS: QUEtiapine FUMARATE 100 MG TABLET PO SCH (20:15)
[2017-11-02 05:27] VITALS: BP 149/88
[2017-11-02 05:32] LABS: GLUCOMETER DEV NAME(LOC) 3EI B; GLUCOSE,POINT OF CARE 150 MG/DL (70-110)
[2017-11-02] MEDS: MetFORMIN HCL 500 MG TABLET PO SCH (06:41)
[2017-11-02] MEDS: INSULIN ASPART 100 UNITS/ML - NON-FORMULARY SQ PRN (06:43)
[2017-11-02] MEDS: LITHIUM CARBONATE 300 MG TABLET PO SCH ×2 (08:36→16:12)
[2017-11-02] MEDS: OMEPRAZOLE 20 MG CAPSULE PO SCH (08:37)
[2017-11-02] MEDS: MULTIVITAMINS, THERAPEUTIC TABLET PO SCH (08:37)
[2017-11-02] MEDS: DOCUSATE SODIUM 100 MG CAPSULE PO SCH ×2 (08:37→16:11)
[2017-11-02] MEDS: ASPIRIN 81 MG CHEWABLE TABLET PO SCH (08:37)
[2017-11-02] MEDS: AmLODIPine BESYLATE 5 MG TABLET PO SCH (08:37)
[2017-11-02] MEDS: HALOPERIDOL 5 MG TABLET PO PRN (08:38)
[2017-11-02] MEDS: HALOPERIDOL 10 MG TABLET PO SCH ×2 (08:39→16:12)
[2017-11-02] MEDS: TRIHEXYPHENIDYL HCL 5 MG TABLET PO SCH ×3 (08:39→16:11)
[2017-11-02] MEDS: FLUoxetine HCL 20 MG CAPSULE PO SCH (08:40)
[2017-11-02 10:51] VITALS: BP 140/90
[2017-11-02 16:28] LABS: GLUCOMETER DEV NAME(LOC) 3EX 1; GLUCOSE,POINT OF CARE 140 MG/DL (70-110)
[2017-11-02 16:45] VITALS: BP 141/72
[2017-11-02] MEDS: QUEtiapine FUMARATE 100 MG TABLET PO SCH (20:10)
[2017-11-03 05:43] LABS: GLUCOMETER DEV NAME(LOC) 3EX 1; GLUCOSE,POINT OF CARE 118 MG/DL (70-110)
[2017-11-03 05:44] VITALS: BP 116/81
[2017-11-03] MEDS: MetFORMIN HCL 500 MG TABLET PO SCH (06:52)
[2017-11-03] MEDS: TRIHEXYPHENIDYL HCL 5 MG TABLET PO SCH ×3 (08:28→16:45)
[2017-11-03] MEDS: MULTIVITAMINS, THERAPEUTIC TABLET PO SCH (08:28)
[2017-11-03] MEDS: ASPIRIN 81 MG CHEWABLE TABLET PO SCH (08:29)
[2017-11-03] MEDS: LITHIUM CARBONATE 300 MG TABLET PO SCH ×2 (08:29→16:45)
[2017-11-03] MEDS: DOCUSATE SODIUM 100 MG CAPSULE PO SCH ×2 (08:29→16:52)
[2017-11-03] MEDS: FLUoxetine HCL 20 MG CAPSULE PO SCH (08:30)
[2017-11-03] MEDS: HALOPERIDOL 10 MG TABLET PO SCH ×2 (08:30→16:45)
[2017-11-03] MEDS: AmLODIPine BESYLATE 5 MG TABLET PO SCH (08:30)
[2017-11-03] MEDS: OMEPRAZOLE 20 MG CAPSULE PO SCH (08:30)
[2017-11-03 08:31] VITALS: BP 138/88
[2017-11-03 16:43] LABS: GLUCOMETER DEV NAME(LOC) 3EX 1; GLUCOSE,POINT OF CARE 120 MG/DL (70-110)
[2017-11-03 17:00] VITALS: BP 136/74
[2017-11-03] MEDS: QUEtiapine FUMARATE 100 MG TABLET PO SCH (20:27)
[2017-11-04 05:58] LABS: GLUCOMETER DEV NAME(LOC) 3EI B; GLUCOSE,POINT OF CARE 140 MG/DL (70-110)
[2017-11-04] MEDS: MetFORMIN HCL 500 MG TABLET PO SCH (06:42)
[2017-11-04] MEDS: TRIHEXYPHENIDYL HCL 5 MG TABLET PO SCH ×3 (09:00→16:42)
[2017-11-04] MEDS: FLUoxetine HCL 20 MG CAPSULE PO SCH (09:00)
[2017-11-04] MEDS: OMEPRAZOLE 20 MG CAPSULE PO SCH (09:06)
[2017-11-04] MEDS: ASPIRIN 81 MG CHEWABLE TABLET PO SCH (09:06)
[2017-11-04] MEDS: MULTIVITAMINS, THERAPEUTIC TABLET PO SCH (09:07)
[2017-11-04] MEDS: AmLODIPine BESYLATE 5 MG TABLET PO SCH (09:07)
[2017-11-04] MEDS: LITHIUM CARBONATE 300 MG TABLET PO SCH ×2 (09:07→16:42)
[2017-11-04] MEDS: DOCUSATE SODIUM 100 MG CAPSULE PO SCH ×2 (09:07→16:37)
[2017-11-04] MEDS: HALOPERIDOL 10 MG TABLET PO SCH ×2 (09:07→16:36)
[2017-11-04 10:51] VITALS: BP 136/87
[2017-11-04] MEDS: LORazepam 2 MG TABLET PO PRN (17:52)
[2017-11-04] MEDS: HALOPERIDOL 5 MG TABLET PO PRN (17:52)
[2017-11-04 19:33] VITALS: BP 124/78
[2017-11-04] MEDS: QUEtiapine FUMARATE 100 MG TABLET PO SCH (20:05)
[2017-11-04 20:13] LABS: GLUCOMETER DEV NAME(LOC) 3EX 1; GLUCOSE,POINT OF CARE 140 MG/DL (70-110)
[2017-11-05 06:29] LABS: GLUCOMETER DEV NAME(LOC) 3EI B; GLUCOSE,POINT OF CARE 116 MG/DL (70-110)
[2017-11-05] MEDS: MetFORMIN HCL 500 MG TABLET PO SCH (06:43)
[2017-11-05] MEDS: LITHIUM CARBONATE 300 MG TABLET PO SCH ×2 (09:00→16:44)
[2017-11-05] MEDS: AmLODIPine BESYLATE 5 MG TABLET PO SCH (09:00)
[2017-11-05] MEDS: TRIHEXYPHENIDYL HCL 5 MG TABLET PO SCH ×3 (09:00→16:43)
[2017-11-05] MEDS: FLUoxetine HCL 20 MG CAPSULE PO SCH (09:00)
[2017-11-05] MEDS: MULTIVITAMINS, THERAPEUTIC TABLET PO SCH (09:17)
[2017-11-05] MEDS: HALOPERIDOL 10 MG TABLET PO SCH ×2 (09:17→16:36)
[2017-11-05] MEDS: ASPIRIN 81 MG CHEWABLE TABLET PO SCH (09:17)
[2017-11-05] MEDS: DOCUSATE SODIUM 100 MG CAPSULE PO SCH ×2 (09:17→16:36)
[2017-11-05] MEDS: OMEPRAZOLE 20 MG CAPSULE PO SCH (09:17)
[2017-11-05 10:15] VITALS: BP 138/33
[2017-11-05 16:48] LABS: GLUCOMETER DEV NAME(LOC) 3EX 1; GLUCOSE,POINT OF CARE 112 MG/DL (70-110)
[2017-11-05 17:30] VITALS: BP 140/84
[2017-11-05] MEDS: QUEtiapine FUMARATE 100 MG TABLET PO SCH (20:24)
[2017-11-06 03:40] VITALS: BP 123/91
[2017-11-06 05:43] LABS: GLUCOMETER DEV NAME(LOC) 3EI B; GLUCOSE,POINT OF CARE 127 MG/DL (70-110)
[2017-11-06] MEDS: MetFORMIN HCL 500 MG TABLET PO SCH (06:41)
[2017-11-06 08:00] VITALS: BP 130/80
[2017-11-06] MEDS: FLUoxetine HCL 20 MG CAPSULE PO SCH (08:37)
[2017-11-06] MEDS: OMEPRAZOLE 20 MG CAPSULE PO SCH (08:37)
[2017-11-06] MEDS: MULTIVITAMINS, THERAPEUTIC TABLET PO SCH (08:37)
[2017-11-06] MEDS: HALOPERIDOL 10 MG TABLET PO SCH ×2 (08:37→18:18)
[2017-11-06] MEDS: DOCUSATE SODIUM 100 MG CAPSULE PO SCH ×2 (08:37→18:19)
[2017-11-06] MEDS: ASPIRIN 81 MG CHEWABLE TABLET PO SCH (08:37)
[2017-11-06] MEDS: TRIHEXYPHENIDYL HCL 5 MG TABLET PO SCH ×3 (08:37→17:00)
[2017-11-06] MEDS: AmLODIPine BESYLATE 5 MG TABLET PO SCH (08:37)
[2017-11-06] MEDS: LITHIUM CARBONATE 300 MG TABLET PO SCH ×2 (08:38→18:18)
[2017-11-06 16:43] LABS: GLUCOMETER DEV NAME(LOC) 3EX 1; GLUCOSE,POINT OF CARE 116 MG/DL (70-110)
[2017-11-06 16:53] VITALS: BP 144/98
[2017-11-06] MEDS: QUEtiapine FUMARATE 100 MG TABLET PO SCH (20:33)
[2017-11-07 06:34] LABS: GLUCOMETER DEV NAME(LOC) 3EI B; GLUCOSE,POINT OF CARE 135 MG/DL (70-110)
[2017-11-07] MEDS: MetFORMIN HCL 500 MG TABLET PO SCH (07:19)
[2017-11-07] MEDS: MULTIVITAMINS, THERAPEUTIC TABLET PO SCH (08:00)
[2017-11-07] MEDS: HALOPERIDOL 10 MG TABLET PO SCH ×2 (08:42→16:31)
[2017-11-07] MEDS: TRIHEXYPHENIDYL HCL 5 MG TABLET PO SCH ×3 (08:46→16:39)
[2017-11-07] MEDS: OMEPRAZOLE 20 MG CAPSULE PO SCH (08:47)
[2017-11-07] MEDS: DOCUSATE SODIUM 100 MG CAPSULE PO SCH ×2 (08:47→16:31)
[2017-11-07] MEDS: AmLODIPine BESYLATE 5 MG TABLET PO SCH (08:47)
[2017-11-07] MEDS: ASPIRIN 81 MG CHEWABLE TABLET PO SCH (08:47)
[2017-11-07] MEDS: FLUoxetine HCL 20 MG CAPSULE PO SCH (08:47)
[2017-11-07] MEDS: LITHIUM CARBONATE 300 MG TABLET PO SCH ×2 (08:47→16:40)
[2017-11-07 10:43] VITALS: BP 130/94
[2017-11-07 16:43] LABS: GLUCOMETER DEV NAME(LOC) 3EX 1; GLUCOSE,POINT OF CARE 109 MG/DL (70-110)
[2017-11-07 17:00] VITALS: BP 156/94
[2017-11-07] MEDS: QUEtiapine FUMARATE 100 MG TABLET PO SCH (20:30)
[2017-11-07] MEDS: LORazepam 2 MG TABLET PO PRN (20:32)
[2017-11-08 05:53] LABS: GLUCOMETER DEV NAME(LOC) 3EI B; GLUCOSE,POINT OF CARE 136 MG/DL (70-110)
[2017-11-08] MEDS: MetFORMIN HCL 500 MG TABLET PO SCH (06:59)
[2017-11-08] MEDS: DOCUSATE SODIUM 100 MG CAPSULE PO SCH ×2 (08:58→16:22)
[2017-11-08] MEDS: HALOPERIDOL 10 MG TABLET PO SCH ×2 (09:00→16:22)
[2017-11-08 09:17] VITALS: BP 156/86
[2017-11-08] MEDS: MULTIVITAMINS, THERAPEUTIC TABLET PO SCH (12:26)
[2017-11-08] MEDS: ASPIRIN 81 MG CHEWABLE TABLET PO SCH (12:26)
[2017-11-08] MEDS: TRIHEXYPHENIDYL HCL 5 MG TABLET PO SCH ×3 (12:26→16:22)
[2017-11-08] MEDS: AmLODIPine BESYLATE 5 MG TABLET PO SCH (12:27)
[2017-11-08] MEDS: OMEPRAZOLE 20 MG CAPSULE PO SCH (12:27)
[2017-11-08] MEDS: LITHIUM CARBONATE 300 MG TABLET PO SCH ×2 (12:27→16:22)
[2017-11-08] MEDS: FLUoxetine HCL 20 MG CAPSULE PO SCH (12:27)
[2017-11-08 16:27] LABS: GLUCOMETER DEV NAME(LOC) 3EX 1; GLUCOSE,POINT OF CARE 91 MG/DL (70-110)
[2017-11-08 16:48] VITALS: BP 133/96
[2017-11-08] MEDS: QUEtiapine FUMARATE 100 MG TABLET PO SCH (20:18)
[2017-11-09 06:18] LABS: GLUCOMETER DEV NAME(LOC) 3EI B; GLUCOSE,POINT OF CARE 138 MG/DL (70-110)
[2017-11-09] MEDS: MetFORMIN HCL 500 MG TABLET PO SCH (06:54)
[2017-11-09 09:00] VITALS: BP 169/84
[2017-11-09] MEDS: AmLODIPine BESYLATE 5 MG TABLET PO SCH (09:00)
[2017-11-09] MEDS: TRIHEXYPHENIDYL HCL 5 MG TABLET PO SCH ×3 (09:00→15:54)
[2017-11-09] MEDS: FLUoxetine HCL 20 MG CAPSULE PO SCH (09:00)
[2017-11-09] MEDS: LITHIUM CARBONATE 300 MG TABLET PO SCH ×2 (09:21→15:54)
[2017-11-09] MEDS: MULTIVITAMINS, THERAPEUTIC TABLET PO SCH (09:21)
[2017-11-09] MEDS: DOCUSATE SODIUM 100 MG CAPSULE PO SCH ×2 (09:21→15:54)
[2017-11-09] MEDS: ASPIRIN 81 MG CHEWABLE TABLET PO SCH (09:21)
[2017-11-09] MEDS: HALOPERIDOL 10 MG TABLET PO SCH ×2 (09:21→15:54)
[2017-11-09] MEDS: OMEPRAZOLE 20 MG CAPSULE PO SCH (09:21)
[2017-11-09] MEDS: INSULIN ASPART 100 UNITS/ML - NON-FORMULARY SQ PRN (16:55)
[2017-11-09 16:59] VITALS: BP 142/84
[2017-11-09] MEDS: QUEtiapine FUMARATE 100 MG TABLET PO SCH (20:10)
[2017-11-10 02:52] VITALS: BP 135/78
[2017-11-10 05:17] LABS: GLUCOMETER DEV NAME(LOC) 3EI B; GLUCOSE,POINT OF CARE 190 MG/DL (70-110)
[2017-11-10] MEDS: MetFORMIN HCL 500 MG TABLET PO SCH (06:39)
[2017-11-10] MEDS: INSULIN ASPART 100 UNITS/ML - NON-FORMULARY SQ PRN (06:40)
[2017-11-10] MEDS: MULTIVITAMINS, THERAPEUTIC TABLET PO SCH ×2 (08:00→09:09)
[2017-11-10] MEDS: DOCUSATE SODIUM 100 MG CAPSULE PO SCH ×2 (08:37→17:00)
[2017-11-10] MEDS: ASPIRIN 81 MG CHEWABLE TABLET PO SCH (08:37)
[2017-11-10] MEDS: HALOPERIDOL 10 MG TABLET PO SCH ×2 (08:37→17:55)
[2017-11-10] MEDS: AmLODIPine BESYLATE 5 MG TABLET PO SCH ×2 (08:46→09:09)
[2017-11-10] MEDS: OMEPRAZOLE 20 MG CAPSULE PO SCH ×2 (08:49→09:09)
[2017-11-10] MEDS: TRIHEXYPHENIDYL HCL 5 MG TABLET PO SCH ×3 (08:49→17:54)
[2017-11-10] MEDS: FLUoxetine HCL 20 MG CAPSULE PO SCH ×2 (08:50→09:09)
[2017-11-10] MEDS: LITHIUM CARBONATE 300 MG TABLET PO SCH ×2 (09:07→17:54)
[2017-11-10 10:08] VITALS: BP 138/91
[2017-11-10 13:55] LABS: APPEARANCE,URINE CLEAR (CLEAR); BILIRUBIN,URINE NEGATIVE (NEGATIVE); GLUCOSE, URINE (UA) NEGATIVE (NEGATIVE); KETONES,URINE NEGATIVE (NEGATIVE); LEUKOCYTE ESTERASE ,URINE NEGATIVE (NEGATIVE); NITRATE,URINE NEGATIVE (NEGATIVE); OCCULT BLOOD,URINE NEGATIVE (NEGATIVE); PROTEIN,URINE NEGATIVE (NEGATIVE); UROBILINOGEN,URINE 0.2 mg/dL (<=1.0)
[2017-11-10 16:16] VITALS: BP 151/99
[2017-11-10] MEDS: QUEtiapine FUMARATE 100 MG TABLET PO SCH (20:26)
[2017-11-11 05:58] LABS: GLUCOMETER DEV NAME(LOC) 3EI B; GLUCOSE,POINT OF CARE 128 MG/DL (70-110)
[2017-11-11] MEDS: MetFORMIN HCL 500 MG TABLET PO SCH (06:27)
[2017-11-11 07:33] LABS: LITHIUM 0.69 mmol/L (0.60-1.20)
[2017-11-11 07:37] LABS: ALANINE AMINOTRANSFERASE 24 U/L (12-78); ALBUMIN 3.4 g/dL (3.4-5.0); ALKALINE PHOSPHATASE 115 U/L (46-116); ANION GAP 6 mmol/L (8-16); ASPARTATE AMINOTRANSFERASE 20 U/L (15-37); BILIRUBIN,TOTAL 0.3 mg/dL (0.1-1.0); CARBON DIOXIDE 29 mmol/L (22-29); CHLORIDE 105 mmol/L (98-107); CREATININE 0.74 mg/dL (0.60-1.30); GLOMERULAR FILTR. RATE CALC > 60 mL/min (>60); GLUCOSE,RANDOM 121 mg/dL (70-110); POTASSIUM 4.4 mmol/L (3.5-5.1); SODIUM SERUM 140 mmol/L (136-145); TOTAL PROTEIN, SERUM 7.5 g/dL (6.4-8.2); UREA NITROGEN, BLOOD 14 mg/dL (7-18)
[2017-11-11 07:41] LABS: BASOPHILS % (AUTO) 0.6 % (0.0-2.0); EOSINOPHILS % (AUTO) 4.7 % (1.0-6.0); HEMATOCRIT 35.8 % (41-53); HEMOGLOBIN 12.2 g/dL (13.5-17.5); LYMPHOCYTES # (AUTO) 2.3 K/uL (1.0-4.8); LYMPHOCYTES % (AUTO) 24.6 % (22.0-44.0); MEAN CORPUSCULAR HEMOGLOBIN 29.7 pg (26.0-34.0); MEAN CORPUSCULAR VOLUME 87 fL (80-100); MONOCYTES # (AUTO) 0.9 K/uL (0.1-1.0); MONOCYTES % (AUTO) 10.1 % (2.0-9.0); NEUTROPHILS # (AUTO) 5.7 K/uL (1.8-7.7); PLATELET COUNT (AUTO) 263 K/uL (150-450); RED BLOOD CELL COUNT(AUTO) 4.11 MIL/uL (4.50-5.90)
[2017-11-11] MEDS: TRIHEXYPHENIDYL HCL 5 MG TABLET PO SCH ×3 (08:53→16:14)
[2017-11-11] MEDS: AmLODIPine BESYLATE 5 MG TABLET PO SCH (08:53)
[2017-11-11] MEDS: ASPIRIN 81 MG CHEWABLE TABLET PO SCH (08:54)
[2017-11-11] MEDS: HALOPERIDOL 10 MG TABLET PO SCH ×2 (08:54→16:13)
[2017-11-11] MEDS: LITHIUM CARBONATE 300 MG TABLET PO SCH ×2 (08:54→16:13)
[2017-11-11] MEDS: MULTIVITAMINS, THERAPEUTIC TABLET PO SCH (08:54)
[2017-11-11] MEDS: OMEPRAZOLE 20 MG CAPSULE PO SCH (08:54)
[2017-11-11] MEDS: DOCUSATE SODIUM 100 MG CAPSULE PO SCH ×2 (08:54→16:14)
[2017-11-11] MEDS: FLUoxetine HCL 20 MG CAPSULE PO SCH (08:54)
[2017-11-11 09:05] VITALS: BP 148/92
[2017-11-11 12:58] VITALS: BP 148/92
[2017-11-11 19:23] VITALS: BP 124/78
[2017-11-11] MEDS: QUEtiapine FUMARATE 100 MG TABLET PO SCH (20:21)
[2017-11-12 05:34] LABS: GLUCOMETER DEV NAME(LOC) 3EI B; GLUCOSE,POINT OF CARE 164 MG/DL (70-110)
[2017-11-12] MEDS: INSULIN ASPART 100 UNITS/ML - NON-FORMULARY SQ PRN (06:49)
[2017-11-12] MEDS: MetFORMIN HCL 500 MG TABLET PO SCH (07:17)
[2017-11-12] MEDS: ASPIRIN 81 MG CHEWABLE TABLET PO SCH (08:48)
[2017-11-12] MEDS: OMEPRAZOLE 20 MG CAPSULE PO SCH (08:49)
[2017-11-12] MEDS: MULTIVITAMINS, THERAPEUTIC TABLET PO SCH (08:49)
[2017-11-12] MEDS: LITHIUM CARBONATE 300 MG TABLET PO SCH ×2 (08:49→16:29)
[2017-11-12] MEDS: DOCUSATE SODIUM 100 MG CAPSULE PO SCH ×2 (08:49→16:30)
[2017-11-12] MEDS: HALOPERIDOL 10 MG TABLET PO SCH ×2 (08:49→16:29)
[2017-11-12] MEDS: TRIHEXYPHENIDYL HCL 5 MG TABLET PO SCH ×3 (08:52→16:29)
[2017-11-12] MEDS: AmLODIPine BESYLATE 5 MG TABLET PO SCH (08:52)
[2017-11-12] MEDS: FLUoxetine HCL 20 MG CAPSULE PO SCH (08:52)
[2017-11-12 09:44] VITALS: BP 135/75
[2017-11-12 17:31] VITALS: BP 133/92
[2017-11-12] MEDS: QUEtiapine FUMARATE 100 MG TABLET PO SCH (20:30)
[2017-11-13 05:33] LABS: GLUCOMETER DEV NAME(LOC) 3EI B; GLUCOSE,POINT OF CARE 142 MG/DL (70-110)
[2017-11-13 06:32] VITALS: BP 136/80
[2017-11-13] MEDS: MetFORMIN HCL 500 MG TABLET PO SCH (06:50)
[2017-11-13] MEDS: INSULIN ASPART 100 UNITS/ML - NON-FORMULARY SQ PRN (07:00)
[2017-11-13] MEDS: TRIHEXYPHENIDYL HCL 5 MG TABLET PO SCH ×3 (09:00→16:04)
[2017-11-13] MEDS: AmLODIPine BESYLATE 5 MG TABLET PO SCH (09:00)
[2017-11-13] MEDS: FLUoxetine HCL 20 MG CAPSULE PO SCH (09:00)
[2017-11-13] MEDS: HALOPERIDOL 10 MG TABLET PO SCH ×2 (09:06→16:04)
[2017-11-13] MEDS: DOCUSATE SODIUM 100 MG CAPSULE PO SCH ×2 (09:06→16:04)
[2017-11-13] MEDS: OMEPRAZOLE 20 MG CAPSULE PO SCH (09:07)
[2017-11-13] MEDS: LITHIUM CARBONATE 300 MG TABLET PO SCH ×2 (09:07→16:04)
[2017-11-13] MEDS: ASPIRIN 81 MG CHEWABLE TABLET PO SCH (09:07)
[2017-11-13] MEDS: MULTIVITAMINS, THERAPEUTIC TABLET PO SCH (09:07)
[2017-11-13 09:49] VITALS: BP 147/92
[2017-11-13 17:15] VITALS: BP 151/88
[2017-11-13] MEDS: QUEtiapine FUMARATE 100 MG TABLET PO SCH (20:24)
[2017-11-14 01:53] VITALS: BP 146/85
[2017-11-14 05:28] LABS: GLUCOMETER DEV NAME(LOC) 3EI B; GLUCOSE,POINT OF CARE 155 MG/DL (70-110)
[2017-11-14] MEDS: MetFORMIN HCL 500 MG TABLET PO SCH (06:59)
[2017-11-14] MEDS: INSULIN ASPART 100 UNITS/ML - NON-FORMULARY SQ PRN ×2 (07:05→16:23)
[2017-11-14] MEDS: HALOPERIDOL 10 MG TABLET PO SCH ×2 (08:48→16:04)
[2017-11-14] MEDS: DOCUSATE SODIUM 100 MG CAPSULE PO SCH ×2 (08:48→16:04)
[2017-11-14] MEDS: LITHIUM CARBONATE 300 MG TABLET PO SCH ×2 (08:48→16:04)
[2017-11-14] MEDS: ASPIRIN 81 MG CHEWABLE TABLET PO SCH (08:48)
[2017-11-14] MEDS: MULTIVITAMINS, THERAPEUTIC TABLET PO SCH (08:48)
[2017-11-14] MEDS: OMEPRAZOLE 20 MG CAPSULE PO SCH (08:48)
[2017-11-14] MEDS: FLUoxetine HCL 20 MG CAPSULE PO SCH (08:53)
[2017-11-14] MEDS: AmLODIPine BESYLATE 5 MG TABLET PO SCH (08:53)
[2017-11-14] MEDS: TRIHEXYPHENIDYL HCL 5 MG TABLET PO SCH ×3 (08:53→16:04)
[2017-11-14 09:36] VITALS: BP 147/111
[2017-11-14 16:56] VITALS: BP 137/84
[2017-11-14] MEDS: QUEtiapine FUMARATE 100 MG TABLET PO SCH (20:08)
[2017-11-15 05:57] LABS: GLUCOMETER DEV NAME(LOC) 3EI B; GLUCOSE,POINT OF CARE 153 MG/DL (70-110)
[2017-11-15] MEDS: MetFORMIN HCL 500 MG TABLET PO SCH (06:54)
[2017-11-15] MEDS: INSULIN ASPART 100 UNITS/ML - NON-FORMULARY SQ PRN (07:02)
[2017-11-15] MEDS: HALOPERIDOL 10 MG TABLET PO SCH ×2 (08:14→16:31)
[2017-11-15] MEDS: MULTIVITAMINS, THERAPEUTIC TABLET PO SCH (08:14)
[2017-11-15] MEDS: DOCUSATE SODIUM 100 MG CAPSULE PO SCH ×2 (08:14→16:30)
[2017-11-15] MEDS: LITHIUM CARBONATE 300 MG TABLET PO SCH ×2 (08:14→16:30)
[2017-11-15] MEDS: OMEPRAZOLE 20 MG CAPSULE PO SCH (08:14)
[2017-11-15] MEDS: ASPIRIN 81 MG CHEWABLE TABLET PO SCH (08:15)
[2017-11-15] MEDS: LORazepam 2 MG TABLET PO PRN (08:16)
[2017-11-15] MEDS: FLUoxetine HCL 20 MG CAPSULE PO SCH (08:16)
[2017-11-15] MEDS: AmLODIPine BESYLATE 5 MG TABLET PO SCH (08:16)
[2017-11-15] MEDS: TRIHEXYPHENIDYL HCL 5 MG TABLET PO SCH ×3 (08:16→16:31)
[2017-11-15] MEDS: HALOPERIDOL 5 MG TABLET PO PRN (08:17)
[2017-11-15 18:55] VITALS: BP 138/97
[2017-11-15] MEDS: QUEtiapine FUMARATE 100 MG TABLET PO SCH (20:36)
[2017-11-16 05:32] LABS: GLUCOMETER DEV NAME(LOC) 3EI B; GLUCOSE,POINT OF CARE 124 MG/DL (70-110)
[2017-11-16 06:51] VITALS: BP 130/87
[2017-11-16] MEDS: MetFORMIN HCL 500 MG TABLET PO SCH (06:51)
[2017-11-16 08:11] VITALS: BP 155/94
[2017-11-16] MEDS: FLUoxetine HCL 20 MG CAPSULE PO SCH (08:33)
[2017-11-16] MEDS: OMEPRAZOLE 20 MG CAPSULE PO SCH (08:33)
[2017-11-16] MEDS: TRIHEXYPHENIDYL HCL 5 MG TABLET PO SCH ×3 (08:33→16:01)
[2017-11-16] MEDS: DOCUSATE SODIUM 100 MG CAPSULE PO SCH ×2 (08:33→16:00)
[2017-11-16] MEDS: LITHIUM CARBONATE 300 MG TABLET PO SCH ×2 (08:34→16:01)
[2017-11-16] MEDS: HALOPERIDOL 10 MG TABLET PO SCH ×2 (08:34→16:01)
[2017-11-16] MEDS: AmLODIPine BESYLATE 5 MG TABLET PO SCH (08:34)
[2017-11-16] MEDS: ASPIRIN 81 MG CHEWABLE TABLET PO SCH (08:34)
[2017-11-16] MEDS: MULTIVITAMINS, THERAPEUTIC TABLET PO SCH (08:35)
[2017-11-16 17:07] VITALS: BP 141/65
[2017-11-16] MEDS: QUEtiapine FUMARATE 100 MG TABLET PO SCH (20:12)
[2017-11-17 05:18] LABS: GLUCOMETER DEV NAME(LOC) 3EI B; GLUCOSE,POINT OF CARE 120 MG/DL (70-110)
[2017-11-17 06:12] VITALS: BP 148/85
[2017-11-17] MEDS: MetFORMIN HCL 500 MG TABLET PO SCH (07:25)
[2017-11-17 08:00] VITALS: BP 167/103
[2017-11-17] MEDS: OMEPRAZOLE 20 MG CAPSULE PO SCH (08:10)
[2017-11-17] MEDS: TRIHEXYPHENIDYL HCL 5 MG TABLET PO SCH ×3 (08:10→16:23)
[2017-11-17] MEDS: LITHIUM CARBONATE 300 MG TABLET PO SCH ×2 (08:10→16:24)
[2017-11-17] MEDS: DOCUSATE SODIUM 100 MG CAPSULE PO SCH ×2 (08:10→16:23)
[2017-11-17] MEDS: AmLODIPine BESYLATE 5 MG TABLET PO SCH (08:10)
[2017-11-17] MEDS: HALOPERIDOL 10 MG TABLET PO SCH ×2 (08:10→16:24)
[2017-11-17] MEDS: ASPIRIN 81 MG CHEWABLE TABLET PO SCH (08:10)
[2017-11-17] MEDS: FLUoxetine HCL 20 MG CAPSULE PO SCH (08:10)
[2017-11-17] MEDS: MULTIVITAMINS, THERAPEUTIC TABLET PO SCH (08:11)
[2017-11-17] MEDS: MUPIROCIN CALCIUM 2% 22 GM OINTMENT NASAL SCH ×2 (15:15→16:26)
[2017-11-17 17:22] VITALS: BP 148/86
[2017-11-17] MEDS: QUEtiapine FUMARATE 100 MG TABLET PO SCH (21:01)
[2017-11-18 01:30] VITALS: BP 122/74
[2017-11-18 05:53] LABS: GLUCOMETER DEV NAME(LOC) 3EI B; GLUCOSE,POINT OF CARE 157 MG/DL (70-110)
[2017-11-18] MEDS: INSULIN ASPART 100 UNITS/ML - NON-FORMULARY SQ PRN (07:18)
[2017-11-18] MEDS: MetFORMIN HCL 500 MG TABLET PO SCH (07:20)
[2017-11-18] MEDS: OMEPRAZOLE 20 MG CAPSULE PO SCH (08:40)
[2017-11-18] MEDS: MULTIVITAMINS, THERAPEUTIC TABLET PO SCH (08:40)
[2017-11-18] MEDS: DOCUSATE SODIUM 100 MG CAPSULE PO SCH ×2 (08:40→16:36)
[2017-11-18] MEDS: ASPIRIN 81 MG CHEWABLE TABLET PO SCH (08:42)
[2017-11-18] MEDS: LITHIUM CARBONATE 300 MG TABLET PO SCH ×2 (08:42→16:36)
[2017-11-18] MEDS: FLUoxetine HCL 20 MG CAPSULE PO SCH (08:43)
[2017-11-18] MEDS: HALOPERIDOL 10 MG TABLET PO SCH ×2 (08:43→16:36)
[2017-11-18] MEDS: AmLODIPine BESYLATE 5 MG TABLET PO SCH (08:43)
[2017-11-18] MEDS: TRIHEXYPHENIDYL HCL 5 MG TABLET PO SCH ×3 (08:43→16:35)
[2017-11-18 10:52] VITALS: BP 134/82
[2017-11-18] MEDS: MUPIROCIN CALCIUM 2% 22 GM OINTMENT NASAL SCH ×2 (13:31→16:37)
[2017-11-18 14:33] LABS: GLUCOMETER DEV NAME(LOC) 3EX 1; GLUCOSE,POINT OF CARE 151 MG/DL (70-110)
[2017-11-18 14:33] LABS: GLUCOMETER DEV NAME(LOC) 3EX 1; GLUCOSE,POINT OF CARE 143 MG/DL (70-110)
[2017-11-18 14:33] LABS: GLUCOMETER DEV NAME(LOC) 3EX 1; GLUCOSE,POINT OF CARE 148 MG/DL (70-110)
[2017-11-18 14:33] LABS: GLUCOMETER DEV NAME(LOC) 3EX 1; GLUCOSE,POINT OF CARE 110 MG/DL (70-110)
[2017-11-18 14:33] LABS: GLUCOMETER DEV NAME(LOC) 3EX 1; GLUCOSE,POINT OF CARE 139 MG/DL (70-110)
[2017-11-18 14:33] LABS: GLUCOMETER DEV NAME(LOC) 3EX 1; GLUCOSE,POINT OF CARE 118 MG/DL (70-110)
[2017-11-18 14:33] LABS: GLUCOMETER DEV NAME(LOC) 3EX 1; GLUCOSE,POINT OF CARE 120 MG/DL (70-110)
[2017-11-18 17:28] LABS: GLUCOMETER DEV NAME(LOC) 3EX 1; GLUCOSE,POINT OF CARE 102 MG/DL (70-110)
[2017-11-18 18:01] VITALS: BP 133/72
[2017-11-18] MEDS: QUEtiapine FUMARATE 100 MG TABLET PO SCH (20:06)
[2017-11-19 06:08] LABS: GLUCOMETER DEV NAME(LOC) 3EI B; GLUCOSE,POINT OF CARE 112 MG/DL (70-110)
[2017-11-19] MEDS: MetFORMIN HCL 500 MG TABLET PO SCH (06:45)
[2017-11-19] MEDS: AmLODIPine BESYLATE 5 MG TABLET PO SCH (09:00)
[2017-11-19] MEDS: FLUoxetine HCL 20 MG CAPSULE PO SCH (09:00)
[2017-11-19] MEDS: DOCUSATE SODIUM 100 MG CAPSULE PO SCH ×2 (09:02→16:05)
[2017-11-19] MEDS: MULTIVITAMINS, THERAPEUTIC TABLET PO SCH (09:02)
[2017-11-19] MEDS: TRIHEXYPHENIDYL HCL 5 MG TABLET PO SCH ×3 (09:02→16:06)
[2017-11-19] MEDS: ASPIRIN 81 MG CHEWABLE TABLET PO SCH (09:02)
[2017-11-19] MEDS: HALOPERIDOL 10 MG TABLET PO SCH ×2 (09:03→16:06)
[2017-11-19] MEDS: LITHIUM CARBONATE 300 MG TABLET PO SCH ×2 (09:03→16:06)
[2017-11-19] MEDS: OMEPRAZOLE 20 MG CAPSULE PO SCH (09:03)
[2017-11-19] MEDS: MUPIROCIN CALCIUM 2% 22 GM OINTMENT NASAL SCH ×2 (09:03→16:15)
[2017-11-19 10:47] VITALS: BP 140/81
[2017-11-19 16:13] LABS: GLUCOMETER DEV NAME(LOC) 3EX 1; GLUCOSE,POINT OF CARE 134 MG/DL (70-110)
[2017-11-19 18:23] VITALS: BP 134/78
[2017-11-19] MEDS: QUEtiapine FUMARATE 100 MG TABLET PO SCH (20:12)
[2017-11-20 05:24] LABS: GLUCOMETER DEV NAME(LOC) 3EI B; GLUCOSE,POINT OF CARE 132 MG/DL (70-110)
[2017-11-20 06:26] VITALS: BP 127/77
[2017-11-20] MEDS: MetFORMIN HCL 500 MG TABLET PO SCH (07:15)
[2017-11-20 08:05] VITALS: BP 142/87
[2017-11-20] MEDS: FLUoxetine HCL 20 MG CAPSULE PO SCH (09:00)
[2017-11-20] MEDS: OMEPRAZOLE 20 MG CAPSULE PO SCH (09:00)
[2017-11-20] MEDS: TRIHEXYPHENIDYL HCL 5 MG TABLET PO SCH ×3 (09:00→17:21)
[2017-11-20] MEDS: AmLODIPine BESYLATE 5 MG TABLET PO SCH (09:00)
[2017-11-20] MEDS: ASPIRIN 81 MG CHEWABLE TABLET PO SCH (09:19)
[2017-11-20] MEDS: HALOPERIDOL 10 MG TABLET PO SCH ×2 (09:19→17:21)
[2017-11-20] MEDS: LITHIUM CARBONATE 300 MG TABLET PO SCH ×2 (09:19→17:21)
[2017-11-20] MEDS: DOCUSATE SODIUM 100 MG CAPSULE PO SCH ×2 (09:19→17:21)
[2017-11-20] MEDS: MULTIVITAMINS, THERAPEUTIC TABLET PO SCH (09:20)
[2017-11-20] MEDS: MUPIROCIN CALCIUM 2% 22 GM OINTMENT NASAL SCH ×2 (12:26→17:27)
[2017-11-20 16:46] VITALS: BP 135/86
[2017-11-20 17:33] LABS: GLUCOMETER DEV NAME(LOC) 3EX 1; GLUCOSE,POINT OF CARE 133 MG/DL (70-110)
[2017-11-20] MEDS: QUEtiapine FUMARATE 100 MG TABLET PO SCH (20:07)
[2017-11-21 03:15] VITALS: BP 151/87
[2017-11-21 06:08] LABS: GLUCOMETER DEV NAME(LOC) 3EI B; GLUCOSE,POINT OF CARE 111 MG/DL (70-110)
[2017-11-21] MEDS: MetFORMIN HCL 500 MG TABLET PO SCH (07:08)
[2017-11-21 08:05] VITALS: BP 147/91
[2017-11-21] MEDS: ASPIRIN 81 MG CHEWABLE TABLET PO SCH (08:24)
[2017-11-21] MEDS: MULTIVITAMINS, THERAPEUTIC TABLET PO SCH (08:24)
[2017-11-21] MEDS: LITHIUM CARBONATE 300 MG TABLET PO SCH ×2 (08:25→17:55)
[2017-11-21] MEDS: OMEPRAZOLE 20 MG CAPSULE PO SCH (08:25)
[2017-11-21] MEDS: DOCUSATE SODIUM 100 MG CAPSULE PO SCH ×2 (08:25→17:00)
[2017-11-21] MEDS: HALOPERIDOL 10 MG TABLET PO SCH ×2 (08:26→17:45)
[2017-11-21] MEDS: FLUoxetine HCL 20 MG CAPSULE PO SCH (08:30)
[2017-11-21] MEDS: TRIHEXYPHENIDYL HCL 5 MG TABLET PO SCH ×3 (08:30→17:55)
[2017-11-21] MEDS: AmLODIPine BESYLATE 5 MG TABLET PO SCH (08:30)
[2017-11-21] MEDS: MUPIROCIN CALCIUM 2% 22 GM OINTMENT NASAL SCH ×2 (09:00→17:00)
[2017-11-21 16:53] LABS: GLUCOMETER DEV NAME(LOC) 3EX 1; GLUCOSE,POINT OF CARE 145 MG/DL (70-110)
[2017-11-21 17:22] VITALS: BP 132/82
[2017-11-21] MEDS: QUEtiapine FUMARATE 100 MG TABLET PO SCH (21:51)
[2017-11-22 06:09] LABS: GLUCOMETER DEV NAME(LOC) 3EI B; GLUCOSE,POINT OF CARE 178 MG/DL (70-110)
[2017-11-22] MEDS: MetFORMIN HCL 500 MG TABLET PO SCH (06:56)
[2017-11-22] MEDS: INSULIN ASPART 100 UNITS/ML - NON-FORMULARY SQ PRN (07:09)
[2017-11-22] MEDS: MULTIVITAMINS, THERAPEUTIC TABLET PO SCH (08:00)
[2017-11-22 08:15] VITALS: BP 112/86
[2017-11-22] MEDS: HALOPERIDOL 10 MG TABLET PO SCH ×2 (08:58→16:32)
[2017-11-22] MEDS: TRIHEXYPHENIDYL HCL 5 MG TABLET PO SCH ×3 (09:00→16:32)
[2017-11-22] MEDS: AmLODIPine BESYLATE 5 MG TABLET PO SCH (09:00)
[2017-11-22] MEDS: FLUoxetine HCL 20 MG CAPSULE PO SCH (09:00)
[2017-11-22] MEDS: DOCUSATE SODIUM 100 MG CAPSULE PO SCH ×2 (09:00→16:32)
[2017-11-22] MEDS: MUPIROCIN CALCIUM 2% 22 GM OINTMENT NASAL SCH (09:00)
[2017-11-22] MEDS: OMEPRAZOLE 20 MG CAPSULE PO SCH (09:00)
[2017-11-22] MEDS: ASPIRIN 81 MG CHEWABLE TABLET PO SCH (09:00)
[2017-11-22] MEDS: LITHIUM CARBONATE 300 MG TABLET PO SCH ×2 (12:30→16:32)
[2017-11-22] MEDS: NEOMYCIN/BACITRACIN/POLYMYXIN B 30 GM OINTMENT TP SCH (16:57)
[2017-11-22] MEDS: TERBINAFINE HCL 1% 30 GM CREAM TP SCH (16:57)
[2017-11-22 16:58] LABS: BASOPHILS % (AUTO) 0.8 % (0.0-2.0); EOSINOPHILS % (AUTO) 2.5 % (1.0-6.0); HEMATOCRIT 35.9 % (41-53); HEMOGLOBIN 12.2 g/dL (13.5-17.5); LYMPHOCYTES % (AUTO) 18.3 % (22.0-44.0); MEAN CORPUSCULAR HEMOGLOBIN 29.5 pg (26.0-34.0); MEAN CORPUSCULAR HGB CONC 33.9 G/dL (31.0-37.0); MEAN CORPUSCULAR VOLUME 87 fL (80-100); MONOCYTES # (AUTO) 0.9 K/uL (0.1-1.0); NEUTROPHILS # (AUTO) 7.8 K/uL (1.8-7.7); NEUTROPHILS % (AUTO) 70.4 % (40.0-70.0); PLATELET COUNT (AUTO) 296 K/uL (150-450); RED BLOOD CELL COUNT(AUTO) 4.13 MIL/uL (4.50-5.90); RED CELL DISTRIBUTION WIDTH 14.3 % (11.5-14.5)
[2017-11-22 17:03] LABS: GLUCOMETER DEV NAME(LOC) 3EX 1; GLUCOSE,POINT OF CARE 120 MG/DL (70-110)
[2017-11-22 17:12] VITALS: BP 143/69
[2017-11-22] MEDS: QUEtiapine FUMARATE 100 MG TABLET PO SCH (20:18)
[2017-11-23 02:25] VITALS: BP 148/77
[2017-11-23 05:38] LABS: GLUCOMETER DEV NAME(LOC) 3EI B; GLUCOSE,POINT OF CARE 131 MG/DL (70-110)
[2017-11-23] MEDS: MetFORMIN HCL 500 MG TABLET PO SCH (06:55)
[2017-11-23 08:45] VITALS: BP 140/82
[2017-11-23] MEDS: FLUoxetine HCL 20 MG CAPSULE PO SCH (09:00)
[2017-11-23] MEDS: AmLODIPine BESYLATE 5 MG TABLET PO SCH (09:34)
[2017-11-23] MEDS: HALOPERIDOL 10 MG TABLET PO SCH ×2 (09:34→15:57)
[2017-11-23] MEDS: MULTIVITAMINS, THERAPEUTIC TABLET PO SCH (09:34)
[2017-11-23] MEDS: LITHIUM CARBONATE 300 MG TABLET PO SCH ×2 (09:34→15:57)
[2017-11-23] MEDS: TRIHEXYPHENIDYL HCL 5 MG TABLET PO SCH ×3 (09:34→15:57)
[2017-11-23] MEDS: DOCUSATE SODIUM 100 MG CAPSULE PO SCH ×2 (09:34→15:57)
[2017-11-23] MEDS: ASPIRIN 81 MG CHEWABLE TABLET PO SCH (09:34)
[2017-11-23] MEDS: OMEPRAZOLE 20 MG CAPSULE PO SCH (09:35)
[2017-11-23 16:03] LABS: GLUCOMETER DEV NAME(LOC) 3EX 1; GLUCOSE,POINT OF CARE 132 MG/DL (70-110)
[2017-11-23] MEDS: NEOMYCIN/BACITRACIN/POLYMYXIN B 30 GM OINTMENT TP SCH (16:59)
[2017-11-23] MEDS: TERBINAFINE HCL 1% 30 GM CREAM TP SCH (16:59)
[2017-11-23 17:06] VITALS: BP 146/69
[2017-11-23] MEDS: QUEtiapine FUMARATE 100 MG TABLET PO SCH (20:16)
[2017-11-24 03:26] VITALS: BP 137/87
[2017-11-24 05:28] LABS: GLUCOMETER DEV NAME(LOC) 3EI B; GLUCOSE,POINT OF CARE 123 MG/DL (70-110)
[2017-11-24] MEDS: MetFORMIN HCL 500 MG TABLET PO SCH (06:51)
[2017-11-24] MEDS: OMEPRAZOLE 20 MG CAPSULE PO SCH (08:59)
[2017-11-24] MEDS: DOCUSATE SODIUM 100 MG CAPSULE PO SCH ×2 (09:00→16:18)
[2017-11-24] MEDS: LITHIUM CARBONATE 300 MG TABLET PO SCH ×2 (09:00→16:19)
[2017-11-24] MEDS: TRIHEXYPHENIDYL HCL 5 MG TABLET PO SCH ×3 (09:00→16:18)
[2017-11-24] MEDS: NEOMYCIN/BACITRACIN/POLYMYXIN B 30 GM OINTMENT TP SCH ×2 (09:00→16:20)
[2017-11-24] MEDS: ASPIRIN 81 MG CHEWABLE TABLET PO SCH (09:01)
[2017-11-24] MEDS: MULTIVITAMINS, THERAPEUTIC TABLET PO SCH (09:01)
[2017-11-24] MEDS: AmLODIPine BESYLATE 5 MG TABLET PO SCH (09:01)
[2017-11-24] MEDS: FLUoxetine HCL 20 MG CAPSULE PO SCH (09:02)
[2017-11-24] MEDS: TERBINAFINE HCL 1% 30 GM CREAM TP SCH ×2 (09:06→16:19)
[2017-11-24] MEDS: HALOPERIDOL 10 MG TABLET PO SCH ×2 (09:07→16:18)
[2017-11-24 09:57] VITALS: BP 136/82
[2017-11-24 16:47] LABS: GLUCOMETER DEV NAME(LOC) 3EX 1; GLUCOSE,POINT OF CARE 107 MG/DL (70-110)
[2017-11-24 17:42] VITALS: BP 136/92
[2017-11-24] MEDS: QUEtiapine FUMARATE 100 MG TABLET PO SCH (20:16)
[2017-11-25 05:13] VITALS: BP 125/78
[2017-11-25 05:57] LABS: GLUCOMETER DEV NAME(LOC) 3EI B; GLUCOSE,POINT OF CARE 137 MG/DL (70-110)
[2017-11-25] MEDS: MetFORMIN HCL 500 MG TABLET PO SCH (06:50)
[2017-11-25] MEDS: INSULIN ASPART 100 UNITS/ML - NON-FORMULARY SQ PRN (07:16)
[2017-11-25] MEDS: AmLODIPine BESYLATE 5 MG TABLET PO SCH (08:43)
[2017-11-25] MEDS: OMEPRAZOLE 20 MG CAPSULE PO SCH (08:43)
[2017-11-25] MEDS: TRIHEXYPHENIDYL HCL 5 MG TABLET PO SCH ×3 (08:43→16:38)
[2017-11-25] MEDS: LITHIUM CARBONATE 300 MG TABLET PO SCH ×2 (08:43→16:38)
[2017-11-25] MEDS: FLUoxetine HCL 20 MG CAPSULE PO SCH (08:43)
[2017-11-25] MEDS: HALOPERIDOL 10 MG TABLET PO SCH ×2 (08:44→16:38)
[2017-11-25] MEDS: MULTIVITAMINS, THERAPEUTIC TABLET PO SCH (08:44)
[2017-11-25] MEDS: DOCUSATE SODIUM 100 MG CAPSULE PO SCH ×2 (08:44→16:38)
[2017-11-25] MEDS: ASPIRIN 81 MG CHEWABLE TABLET PO SCH (08:44)
[2017-11-25 08:57] VITALS: BP 148/88
[2017-11-25] MEDS: TERBINAFINE HCL 1% 30 GM CREAM TP SCH ×2 (09:37→16:37)
[2017-11-25] MEDS: NEOMYCIN/BACITRACIN/POLYMYXIN B 30 GM OINTMENT TP SCH ×2 (09:37→16:37)
[2017-11-25] MEDS: QUEtiapine FUMARATE 100 MG TABLET PO SCH (20:16)
[2017-11-26 00:10] VITALS: BP 132/76
[2017-11-26 05:43] LABS: GLUCOMETER DEV NAME(LOC) 3EI B; GLUCOSE,POINT OF CARE 112 MG/DL (70-110)
[2017-11-26] MEDS: MetFORMIN HCL 500 MG TABLET PO SCH (06:50)
[2017-11-26] MEDS: FLUoxetine HCL 20 MG CAPSULE PO SCH (08:55)
[2017-11-26] MEDS: TRIHEXYPHENIDYL HCL 5 MG TABLET PO SCH ×3 (08:55→16:26)
[2017-11-26] MEDS: HALOPERIDOL 10 MG TABLET PO SCH ×2 (08:55→16:26)
[2017-11-26] MEDS: ASPIRIN 81 MG CHEWABLE TABLET PO SCH (08:55)
[2017-11-26] MEDS: LITHIUM CARBONATE 300 MG TABLET PO SCH ×2 (08:55→16:26)
[2017-11-26] MEDS: OMEPRAZOLE 20 MG CAPSULE PO SCH (08:55)
[2017-11-26] MEDS: DOCUSATE SODIUM 100 MG CAPSULE PO SCH ×2 (08:55→16:26)
[2017-11-26] MEDS: MULTIVITAMINS, THERAPEUTIC TABLET PO SCH (08:55)
[2017-11-26] MEDS: AmLODIPine BESYLATE 5 MG TABLET PO SCH (08:56)
[2017-11-26 08:58] VITALS: BP 126/69
[2017-11-26] MEDS: NEOMYCIN/BACITRACIN/POLYMYXIN B 30 GM OINTMENT TP SCH ×2 (09:00→16:29)
[2017-11-26] MEDS: TERBINAFINE HCL 1% 30 GM CREAM TP SCH ×2 (12:25→16:27)
[2017-11-26] MEDS: AMOX TR/POT CLAV 500 MG/125 MG TABLET PO SCH (16:26)
[2017-11-26 16:33] LABS: GLUCOMETER DEV NAME(LOC) 3EX 1; GLUCOSE,POINT OF CARE 118 MG/DL (70-110)
[2017-11-26 18:57] VITALS: BP 118/72
[2017-11-26] MEDS: QUEtiapine FUMARATE 100 MG TABLET PO SCH (20:30)
[2017-11-27 04:30] VITALS: BP 115/69
[2017-11-27 06:38] LABS: GLUCOMETER DEV NAME(LOC) 3EX 1; GLUCOSE,POINT OF CARE 114 MG/DL (70-110)
[2017-11-27 06:50] LABS: ANION GAP 7 mmol/L (8-16); BASOPHILS % (AUTO) 0.7 % (0.0-2.0); CALCIUM, TOTAL 9.1 mg/dL (8.8-10.5); CARBON DIOXIDE 29 mmol/L (22-29); CHLORIDE 102 mmol/L (98-107); CREATININE 0.77 mg/dL (0.60-1.30); EOSINOPHILS % (AUTO) 3.9 % (1.0-6.0); GLOMERULAR FILTR. RATE CALC > 60 mL/min (>60); GLUCOSE,RANDOM 133 mg/dL (70-110); HEMATOCRIT 35.7 % (41-53); HEMOGLOBIN 11.9 g/dL (13.5-17.5); LYMPHOCYTES # (AUTO) 2.3 K/uL (1.0-4.8); LYMPHOCYTES % (AUTO) 20.8 % (22.0-44.0); MEAN CORPUSCULAR HEMOGLOBIN 29.2 pg (26.0-34.0); MEAN CORPUSCULAR HGB CONC 33.4 G/dL (31.0-37.0); MEAN CORPUSCULAR VOLUME 88 fL (80-100); MONOCYTES # (AUTO) 1.2 K/uL (0.1-1.0); NEUTROPHILS % (AUTO) 63.6 % (40.0-70.0); PLATELET COUNT (AUTO) 317 K/uL (150-450); POTASSIUM 4.2 mmol/L (3.5-5.1); RED BLOOD CELL COUNT(AUTO) 4.08 MIL/uL (4.50-5.90); RED CELL DISTRIBUTION WIDTH 14.3 % (11.5-14.5); SODIUM SERUM 138 mmol/L (136-145); UREA NITROGEN, BLOOD 16 mg/dL (7-18)
[2017-11-27] MEDS: MetFORMIN HCL 500 MG TABLET PO SCH (07:18)
[2017-11-27] MEDS: FLUoxetine HCL 20 MG CAPSULE PO SCH (09:00)
[2017-11-27] MEDS: TERBINAFINE HCL 1% 30 GM CREAM TP SCH ×2 (09:00→16:10)
[2017-11-27] MEDS: AmLODIPine BESYLATE 5 MG TABLET PO SCH (09:00)
[2017-11-27] MEDS: TRIHEXYPHENIDYL HCL 5 MG TABLET PO SCH ×3 (09:00→16:09)
[2017-11-27] MEDS: NEOMYCIN/BACITRACIN/POLYMYXIN B 30 GM OINTMENT TP SCH ×2 (09:00→16:11)
[2017-11-27] MEDS: MULTIVITAMINS, THERAPEUTIC TABLET PO SCH (09:23)
[2017-11-27] MEDS: AMOX TR/POT CLAV 500 MG/125 MG TABLET PO SCH ×2 (09:23→16:09)
[2017-11-27] MEDS: HALOPERIDOL 10 MG TABLET PO SCH ×2 (09:23→16:09)
[2017-11-27] MEDS: DOCUSATE SODIUM 100 MG CAPSULE PO SCH ×2 (09:23→16:09)
[2017-11-27] MEDS: ASPIRIN 81 MG CHEWABLE TABLET PO SCH (09:23)
[2017-11-27] MEDS: OMEPRAZOLE 20 MG CAPSULE PO SCH (09:23)
[2017-11-27] MEDS: LITHIUM CARBONATE 300 MG TABLET PO SCH ×2 (09:24→16:10)
[2017-11-27 09:26] VITALS: BP 138/80
[2017-11-27] MEDS: ACETAMINOPHEN 325 MG TABLET PO PRN (09:27)
[2017-11-27 16:11] LABS: GLUCOMETER DEV NAME(LOC) 3EX 1; GLUCOSE,POINT OF CARE 123 MG/DL (70-110)
[2017-11-27 17:51] VITALS: BP 127/76
[2017-11-27 20:24] VITALS: BP 133/74
[2017-11-27] MEDS: QUEtiapine FUMARATE 100 MG TABLET PO SCH (20:25)
[2017-11-27] MEDS: IBUPROFEN 400 MG TABLET PO PRN (20:26)
[2017-11-27 21:24] VITALS: BP 129/76
[2017-11-28 05:28] LABS: GLUCOMETER DEV NAME(LOC) 3EI B; GLUCOSE,POINT OF CARE 124 MG/DL (70-110)
[2017-11-28 06:19] VITALS: BP 128/78
[2017-11-28] MEDS: MetFORMIN HCL 500 MG TABLET PO SCH (06:56)
[2017-11-28] MEDS: MULTIVITAMINS, THERAPEUTIC TABLET PO SCH (08:25)
[2017-11-28] MEDS: OMEPRAZOLE 20 MG CAPSULE PO SCH (08:26)
[2017-11-28] MEDS: ASPIRIN 81 MG CHEWABLE TABLET PO SCH (08:26)
[2017-11-28] MEDS: TRIHEXYPHENIDYL HCL 5 MG TABLET PO SCH ×3 (08:27→16:48)
[2017-11-28] MEDS: LITHIUM CARBONATE 300 MG TABLET PO SCH ×2 (08:27→16:46)
[2017-11-28] MEDS: AmLODIPine BESYLATE 5 MG TABLET PO SCH (08:27)
[2017-11-28] MEDS: DOCUSATE SODIUM 100 MG CAPSULE PO SCH ×2 (08:27→16:46)
[2017-11-28] MEDS: FLUoxetine HCL 20 MG CAPSULE PO SCH (08:28)
[2017-11-28] MEDS: HALOPERIDOL 10 MG TABLET PO SCH ×2 (08:29→16:47)
[2017-11-28] MEDS: AMOX TR/POT CLAV 500 MG/125 MG TABLET PO SCH ×2 (08:30→16:48)
[2017-11-28] MEDS: NEOMYCIN/BACITRACIN/POLYMYXIN B 30 GM OINTMENT TP SCH ×2 (09:00→16:53)
[2017-11-28] MEDS: TERBINAFINE HCL 1% 30 GM CREAM TP SCH ×2 (09:00→16:52)
[2017-11-28 09:41] VITALS: BP 131/79
[2017-11-28] MEDS: IBUPROFEN 400 MG TABLET PO PRN (09:41)
[2017-11-28 17:37] VITALS: BP 138/97
[2017-11-28 17:37] LABS: GLUCOMETER DEV NAME(LOC) 3EX 1; GLUCOSE,POINT OF CARE 117 MG/DL (70-110)
[2017-11-28] MEDS: QUEtiapine FUMARATE 100 MG TABLET PO SCH (20:28)
[2017-11-29 05:43] LABS: GLUCOMETER DEV NAME(LOC) 3EI B; GLUCOSE,POINT OF CARE 109 MG/DL (70-110)
[2017-11-29] MEDS: MetFORMIN HCL 500 MG TABLET PO SCH (07:26)
[2017-11-29] MEDS: DOCUSATE SODIUM 100 MG CAPSULE PO SCH ×2 (08:15→16:35)
[2017-11-29] MEDS: MULTIVITAMINS, THERAPEUTIC TABLET PO SCH (08:16)
[2017-11-29] MEDS: AMOX TR/POT CLAV 500 MG/125 MG TABLET PO SCH ×2 (08:16→16:35)
[2017-11-29] MEDS: OMEPRAZOLE 20 MG CAPSULE PO SCH (08:16)
[2017-11-29] MEDS: ASPIRIN 81 MG CHEWABLE TABLET PO SCH (08:16)
[2017-11-29] MEDS: LITHIUM CARBONATE 300 MG TABLET PO SCH ×2 (08:17→16:35)
[2017-11-29] MEDS: HALOPERIDOL 10 MG TABLET PO SCH ×2 (08:19→16:35)
[2017-11-29] MEDS: TRIHEXYPHENIDYL HCL 5 MG TABLET PO SCH ×3 (08:19→16:35)
[2017-11-29] MEDS: AmLODIPine BESYLATE 5 MG TABLET PO SCH (08:19)
[2017-11-29] MEDS: FLUoxetine HCL 20 MG CAPSULE PO SCH (08:21)
[2017-11-29 09:23] VITALS: BP 143/85
[2017-11-29] MEDS: TERBINAFINE HCL 1% 30 GM CREAM TP SCH ×2 (10:23→16:36)
[2017-11-29] MEDS: NEOMYCIN/BACITRACIN/POLYMYXIN B 30 GM OINTMENT TP SCH ×2 (12:26→16:39)
[2017-11-29 16:43] LABS: GLUCOMETER DEV NAME(LOC) 3EX 1; GLUCOSE,POINT OF CARE 142 MG/DL (70-110)
[2017-11-29 16:45] VITALS: BP 134/78
[2017-11-29] MEDS: INSULIN ASPART 100 UNITS/ML - NON-FORMULARY SQ PRN (17:39)
[2017-11-29] MEDS: QUEtiapine FUMARATE 100 MG TABLET PO SCH (21:11)
[2017-11-30 05:22] LABS: GLUCOMETER DEV NAME(LOC) 3EI B; GLUCOSE,POINT OF CARE 115 MG/DL (70-110)
[2017-11-30] MEDS: MetFORMIN HCL 500 MG TABLET PO SCH (07:02)
[2017-11-30] MEDS: MULTIVITAMINS, THERAPEUTIC TABLET PO SCH (08:20)
[2017-11-30] MEDS: AMOX TR/POT CLAV 500 MG/125 MG TABLET PO SCH ×2 (08:20→16:12)
[2017-11-30] MEDS: DOCUSATE SODIUM 100 MG CAPSULE PO SCH ×2 (08:20→16:12)
[2017-11-30] MEDS: OMEPRAZOLE 20 MG CAPSULE PO SCH (08:20)
[2017-11-30] MEDS: TRIHEXYPHENIDYL HCL 5 MG TABLET PO SCH ×3 (08:21→16:12)
[2017-11-30] MEDS: LITHIUM CARBONATE 300 MG TABLET PO SCH ×2 (08:22→16:11)
[2017-11-30] MEDS: HALOPERIDOL 10 MG TABLET PO SCH ×2 (08:22→16:12)
[2017-11-30] MEDS: ASPIRIN 81 MG CHEWABLE TABLET PO SCH (08:23)
[2017-11-30] MEDS: AmLODIPine BESYLATE 5 MG TABLET PO SCH (08:25)
[2017-11-30] MEDS: FLUoxetine HCL 20 MG CAPSULE PO SCH (09:00)
[2017-11-30 09:25] VITALS: BP 152/78
[2017-11-30] MEDS: NEOMYCIN/BACITRACIN/POLYMYXIN B 30 GM OINTMENT TP SCH ×2 (11:06→16:12)
[2017-11-30] MEDS: TERBINAFINE HCL 1% 30 GM CREAM TP SCH ×2 (11:07→16:13)
[2017-11-30 16:07] VITALS: BP 125/86
[2017-11-30] MEDS: INSULIN ASPART 100 UNITS/ML - NON-FORMULARY SQ PRN (17:21)
[2017-11-30] MEDS: QUEtiapine FUMARATE 100 MG TABLET PO SCH (20:12)
[2017-11-30 21:27] LABS: GLUCOMETER DEV NAME(LOC) 3EX 1; GLUCOSE,POINT OF CARE 183 MG/DL (70-110)
[2017-11-30] MEDS: IBUPROFEN 400 MG TABLET PO PRN (22:11)
[2017-12-01 05:00] VITALS: BP 136/79
[2017-12-01 05:52] LABS: GLUCOMETER DEV NAME(LOC) 3EI B; GLUCOSE,POINT OF CARE 111 MG/DL (70-110)
[2017-12-01] MEDS: MetFORMIN HCL 500 MG TABLET PO SCH (07:29)
[2017-12-01 08:30] VITALS: BP 137/79
[2017-12-01] MEDS: NEOMYCIN/BACITRACIN/POLYMYXIN B 30 GM OINTMENT TP SCH ×2 (09:00→16:45)
[2017-12-01] MEDS: FLUoxetine HCL 20 MG CAPSULE PO SCH (09:00)
[2017-12-01] MEDS: TERBINAFINE HCL 1% 30 GM CREAM TP SCH ×2 (09:00→16:44)
[2017-12-01] MEDS: TRIHEXYPHENIDYL HCL 5 MG TABLET PO SCH ×3 (09:00→16:44)
[2017-12-01] MEDS: AmLODIPine BESYLATE 5 MG TABLET PO SCH (09:00)
[2017-12-01] MEDS: AMOX TR/POT CLAV 500 MG/125 MG TABLET PO SCH ×2 (09:26→16:44)
[2017-12-01] MEDS: DOCUSATE SODIUM 100 MG CAPSULE PO SCH ×2 (09:26→16:44)
[2017-12-01] MEDS: MULTIVITAMINS, THERAPEUTIC TABLET PO SCH (09:26)
[2017-12-01] MEDS: ASPIRIN 81 MG CHEWABLE TABLET PO SCH (09:26)
[2017-12-01] MEDS: OMEPRAZOLE 20 MG CAPSULE PO SCH (09:26)
[2017-12-01] MEDS: LITHIUM CARBONATE 300 MG TABLET PO SCH ×2 (09:27→16:42)
[2017-12-01] MEDS: HALOPERIDOL 10 MG TABLET PO SCH ×2 (09:27→16:42)
[2017-12-01] MEDS: IBUPROFEN 400 MG TABLET PO PRN (11:18)
[2017-12-01 16:48] LABS: GLUCOMETER DEV NAME(LOC) 3EX 1; GLUCOSE,POINT OF CARE 121 MG/DL (70-110)
[2017-12-01 17:11] VITALS: BP 132/82
[2017-12-01] MEDS: QUEtiapine FUMARATE 100 MG TABLET PO SCH (20:57)
[2017-12-02 05:58] LABS: GLUCOMETER DEV NAME(LOC) 3EI B; GLUCOSE,POINT OF CARE 133 MG/DL (70-110)
[2017-12-02] MEDS: MetFORMIN HCL 500 MG TABLET PO SCH (07:15)
[2017-12-02] MEDS: MULTIVITAMINS, THERAPEUTIC TABLET PO SCH (08:00)
[2017-12-02] MEDS: OMEPRAZOLE 20 MG CAPSULE PO SCH (08:16)
[2017-12-02] MEDS: AMOX TR/POT CLAV 500 MG/125 MG TABLET PO SCH ×2 (08:16→16:35)
[2017-12-02] MEDS: LITHIUM CARBONATE 300 MG TABLET PO SCH ×2 (08:16→16:35)
[2017-12-02] MEDS: ASPIRIN 81 MG CHEWABLE TABLET PO SCH (08:16)
[2017-12-02] MEDS: FLUoxetine HCL 20 MG CAPSULE PO SCH (08:17)
[2017-12-02] MEDS: HALOPERIDOL 10 MG TABLET PO SCH ×2 (08:17→16:34)
[2017-12-02] MEDS: DOCUSATE SODIUM 100 MG CAPSULE PO SCH ×2 (08:17→16:34)
[2017-12-02] MEDS: AmLODIPine BESYLATE 5 MG TABLET PO SCH (08:17)
[2017-12-02] MEDS: TRIHEXYPHENIDYL HCL 5 MG TABLET PO SCH ×3 (08:17→16:34)
[2017-12-02] MEDS: NEOMYCIN/BACITRACIN/POLYMYXIN B 30 GM OINTMENT TP SCH (08:19)
[2017-12-02] MEDS: TERBINAFINE HCL 1% 30 GM CREAM TP SCH ×2 (08:19→16:36)
[2017-12-02 08:45] VITALS: BP 132/71
[2017-12-02 16:37] LABS: GLUCOMETER DEV NAME(LOC) 3EX 1; GLUCOSE,POINT OF CARE 113 MG/DL (70-110)
[2017-12-02] MEDS: QUEtiapine FUMARATE 100 MG TABLET PO SCH (20:49)
[2017-12-02 21:07] VITALS: BP 121/84
[2017-12-03 02:56] VITALS: BP 122/73
[2017-12-03 06:08] LABS: GLUCOMETER DEV NAME(LOC) 3EI B; GLUCOSE,POINT OF CARE 126 MG/DL (70-110)
[2017-12-03] MEDS: MetFORMIN HCL 500 MG TABLET PO SCH (06:58)
[2017-12-03 08:00] VITALS: BP 110/73
[2017-12-03] MEDS: MULTIVITAMINS, THERAPEUTIC TABLET PO SCH (08:00)
[2017-12-03] MEDS: OMEPRAZOLE 20 MG CAPSULE PO SCH (09:00)
[2017-12-03] MEDS: FLUoxetine HCL 20 MG CAPSULE PO SCH (09:00)
[2017-12-03] MEDS: TERBINAFINE HCL 1% 30 GM CREAM TP SCH ×2 (09:00→16:05)
[2017-12-03] MEDS: TRIHEXYPHENIDYL HCL 5 MG TABLET PO SCH ×3 (09:00→16:03)
[2017-12-03] MEDS: LITHIUM CARBONATE 300 MG TABLET PO SCH ×2 (09:00→16:14)
[2017-12-03] MEDS: AmLODIPine BESYLATE 5 MG TABLET PO SCH (09:00)
[2017-12-03] MEDS: AMOX TR/POT CLAV 500 MG/125 MG TABLET PO SCH ×2 (09:00→16:13)
[2017-12-03] MEDS: HALOPERIDOL 10 MG TABLET PO SCH ×2 (09:00→16:03)
[2017-12-03] MEDS: DOCUSATE SODIUM 100 MG CAPSULE PO SCH ×2 (09:00→16:13)
[2017-12-03] MEDS: ASPIRIN 81 MG CHEWABLE TABLET PO SCH (09:00)
[2017-12-03 16:43] LABS: GLUCOMETER DEV NAME(LOC) 3EX 1; GLUCOSE,POINT OF CARE 100 MG/DL (70-110)
[2017-12-03 17:08] VITALS: BP 133/82
[2017-12-03] MEDS: QUEtiapine FUMARATE 100 MG TABLET PO SCH (21:03)
[2017-12-04 05:43] VITALS: BP 132/78
[2017-12-04 05:43] LABS: GLUCOMETER DEV NAME(LOC) 3EI B; GLUCOSE,POINT OF CARE 102 MG/DL (70-110)
[2017-12-04] MEDS: HALOPERIDOL 5 MG TABLET PO PRN ×2 (06:57→19:34)
[2017-12-04] MEDS: MetFORMIN HCL 500 MG TABLET PO SCH (07:08)
[2017-12-04 08:00] VITALS: BP 121/75
[2017-12-04] MEDS: OMEPRAZOLE 20 MG CAPSULE PO SCH (09:54)
[2017-12-04] MEDS: MULTIVITAMINS, THERAPEUTIC TABLET PO SCH (09:54)
[2017-12-04] MEDS: AmLODIPine BESYLATE 5 MG TABLET PO SCH (09:54)
[2017-12-04] MEDS: ASPIRIN 81 MG CHEWABLE TABLET PO SCH (09:54)
[2017-12-04] MEDS: DOCUSATE SODIUM 100 MG CAPSULE PO SCH ×2 (09:54→17:19)
[2017-12-04] MEDS: HALOPERIDOL 10 MG TABLET PO SCH ×2 (09:55→17:18)
[2017-12-04] MEDS: TRIHEXYPHENIDYL HCL 5 MG TABLET PO SCH ×3 (09:55→17:18)
[2017-12-04] MEDS: AMOX TR/POT CLAV 500 MG/125 MG TABLET PO SCH ×2 (09:55→17:18)
[2017-12-04] MEDS: LITHIUM CARBONATE 300 MG TABLET PO SCH ×2 (09:55→17:18)
[2017-12-04] MEDS: HALOPERIDOL DECANOATE 50 MG/ML VIAL IM SCH (09:55)
[2017-12-04] MEDS: TERBINAFINE HCL 1% 30 GM CREAM TP SCH ×2 (09:56→17:00)
[2017-12-04] MEDS: FLUoxetine HCL 20 MG CAPSULE PO SCH (09:56)
[2017-12-04 17:17] LABS: GLUCOMETER DEV NAME(LOC) 3EX 1; GLUCOSE,POINT OF CARE 125 MG/DL (70-110)
[2017-12-04 18:35] VITALS: BP 125/78
[2017-12-04] MEDS: LORazepam 2 MG TABLET PO PRN (19:35)
[2017-12-04] MEDS: LITHIUM CARBONATE 450 MG ER TABLET PO SCH (21:14)
[2017-12-05 04:26] VITALS: BP 141/106
[2017-12-05] MEDS: HALOPERIDOL 5 MG TABLET PO PRN (04:26)
[2017-12-05] MEDS: LORazepam 2 MG TABLET PO PRN ×2 (04:26→19:21)
[2017-12-05 05:58] LABS: GLUCOMETER DEV NAME(LOC) 3EI B; GLUCOSE,POINT OF CARE 110 MG/DL (70-110)
[2017-12-05] MEDS: MetFORMIN HCL 500 MG TABLET PO SCH (07:08)
[2017-12-05] MEDS: LITHIUM CARBONATE 450 MG ER TABLET PO SCH ×3 (07:57→16:22)
[2017-12-05] MEDS: OMEPRAZOLE 20 MG CAPSULE PO SCH (07:57)
[2017-12-05] MEDS: AmLODIPine BESYLATE 5 MG TABLET PO SCH (07:57)
[2017-12-05] MEDS: MULTIVITAMINS, THERAPEUTIC TABLET PO SCH (07:57)
[2017-12-05] MEDS: ASPIRIN 81 MG CHEWABLE TABLET PO SCH (07:57)
[2017-12-05] MEDS: DOCUSATE SODIUM 100 MG CAPSULE PO SCH ×2 (07:57→16:22)
[2017-12-05] MEDS: TRIHEXYPHENIDYL HCL 5 MG TABLET PO SCH ×3 (07:58→16:22)
[2017-12-05] MEDS: AMOX TR/POT CLAV 500 MG/125 MG TABLET PO SCH ×2 (07:58→16:22)
[2017-12-05] MEDS: HALOPERIDOL 10 MG TABLET PO SCH ×2 (07:59→16:22)
[2017-12-05] MEDS: FLUoxetine HCL 20 MG CAPSULE PO SCH (07:59)
[2017-12-05 08:05] VITALS: BP 149/96
[2017-12-05] MEDS: TERBINAFINE HCL 1% 30 GM CREAM TP SCH ×2 (09:00→16:22)
[2017-12-05 16:57] LABS: GLUCOMETER DEV NAME(LOC) 3EX 1; GLUCOSE,POINT OF CARE 112 MG/DL (70-110)
[2017-12-05 20:00] VITALS: BP 141/81
[2017-12-06 01:25] VITALS: BP 131/99
[2017-12-06] MEDS: IBUPROFEN 400 MG TABLET PO PRN (01:30)
[2017-12-06] MEDS: ZOLPIDEM TARTRATE 10 MG TABLET PO PRN (01:59)
[2017-12-06 05:43] LABS: GLUCOMETER DEV NAME(LOC) 3EI B; GLUCOSE,POINT OF CARE 113 MG/DL (70-110)
[2017-12-06] MEDS: MetFORMIN HCL 500 MG TABLET PO SCH (07:12)
[2017-12-06] MEDS: AmLODIPine BESYLATE 5 MG TABLET PO SCH (08:06)
[2017-12-06] MEDS: HALOPERIDOL 10 MG TABLET PO SCH ×2 (08:06→16:01)
[2017-12-06] MEDS: LITHIUM CARBONATE 450 MG ER TABLET PO SCH ×3 (08:06→16:01)
[2017-12-06] MEDS: ASPIRIN 81 MG CHEWABLE TABLET PO SCH (08:06)
[2017-12-06] MEDS: AMOX TR/POT CLAV 500 MG/125 MG TABLET PO SCH (08:06)
[2017-12-06] MEDS: MULTIVITAMINS, THERAPEUTIC TABLET PO SCH (08:06)
[2017-12-06] MEDS: OMEPRAZOLE 20 MG CAPSULE PO SCH (08:06)
[2017-12-06] MEDS: DOCUSATE SODIUM 100 MG CAPSULE PO SCH ×2 (08:06→16:01)
[2017-12-06] MEDS: TRIHEXYPHENIDYL HCL 5 MG TABLET PO SCH ×3 (08:06→16:01)
[2017-12-06 08:51] VITALS: BP_SYST 138
[2017-12-06] MEDS: TERBINAFINE HCL 1% 30 GM CREAM TP SCH ×2 (09:00→16:03)
[2017-12-06] MEDS: FLUoxetine HCL 20 MG CAPSULE PO SCH (09:07)
[2017-12-06 16:07] LABS: GLUCOMETER DEV NAME(LOC) 3EX 1; GLUCOSE,POINT OF CARE 123 MG/DL (70-110)
[2017-12-06 16:58] VITALS: BP 124/81
[2017-12-07 01:24] VITALS: BP 133/83
[2017-12-07] MEDS: LORazepam 2 MG TABLET PO PRN (01:26)
[2017-12-07] MEDS: HALOPERIDOL 5 MG TABLET PO PRN (01:26)
[2017-12-07 05:47] LABS: GLUCOMETER DEV NAME(LOC) 3EI B; GLUCOSE,POINT OF CARE 167 MG/DL (70-110)
[2017-12-07] MEDS: MetFORMIN HCL 500 MG TABLET PO SCH (06:46)
[2017-12-07] MEDS: INSULIN ASPART 100 UNITS/ML - NON-FORMULARY SQ PRN ×2 (07:11→16:39)
[2017-12-07 08:30] VITALS: BP 106/72
[2017-12-07] MEDS: LITHIUM CARBONATE 450 MG ER TABLET PO SCH ×3 (08:51→16:15)
[2017-12-07] MEDS: HALOPERIDOL 10 MG TABLET PO SCH ×2 (08:51→16:15)
[2017-12-07] MEDS: FLUoxetine HCL 20 MG CAPSULE PO SCH (08:51)
[2017-12-07] MEDS: ASPIRIN 81 MG CHEWABLE TABLET PO SCH (08:51)
[2017-12-07] MEDS: OMEPRAZOLE 20 MG CAPSULE PO SCH (08:51)
[2017-12-07] MEDS: TRIHEXYPHENIDYL HCL 5 MG TABLET PO SCH ×3 (08:51→16:15)
[2017-12-07] MEDS: MULTIVITAMINS, THERAPEUTIC TABLET PO SCH (08:51)
[2017-12-07] MEDS: DOCUSATE SODIUM 100 MG CAPSULE PO SCH ×2 (08:51→16:14)
[2017-12-07] MEDS: AmLODIPine BESYLATE 5 MG TABLET PO SCH (08:51)
[2017-12-07 16:22] LABS: GLUCOMETER DEV NAME(LOC) 3EX 1; GLUCOSE,POINT OF CARE 146 MG/DL (70-110)
[2017-12-07] MEDS: TERBINAFINE HCL 1% 30 GM CREAM TP SCH ×2 (16:25→16:27)
[2017-12-07 16:29] VITALS: BP 137/73
[2017-12-08 00:30] VITALS: BP 139/87
[2017-12-08] MEDS: LORazepam 2 MG TABLET PO PRN (00:36)
[2017-12-08 06:02] LABS: GLUCOMETER DEV NAME(LOC) 3EX 1; GLUCOSE,POINT OF CARE 113 MG/DL (70-110)
[2017-12-08] MEDS: MetFORMIN HCL 500 MG TABLET PO SCH (07:02)
[2017-12-08] MEDS: OMEPRAZOLE 20 MG CAPSULE PO SCH (08:02)
[2017-12-08] MEDS: DOCUSATE SODIUM 100 MG CAPSULE PO SCH ×2 (08:02→16:18)
[2017-12-08] MEDS: MULTIVITAMINS, THERAPEUTIC TABLET PO SCH (08:02)
[2017-12-08] MEDS: TRIHEXYPHENIDYL HCL 5 MG TABLET PO SCH ×3 (08:02→16:09)
[2017-12-08] MEDS: HALOPERIDOL 10 MG TABLET PO SCH ×2 (08:02→16:09)
[2017-12-08] MEDS: AmLODIPine BESYLATE 5 MG TABLET PO SCH (08:02)
[2017-12-08] MEDS: ASPIRIN 81 MG CHEWABLE TABLET PO SCH (08:02)
[2017-12-08] MEDS: LITHIUM CARBONATE 450 MG ER TABLET PO SCH ×3 (08:02→16:09)
[2017-12-08] MEDS: FLUoxetine HCL 20 MG CAPSULE PO SCH (08:03)
[2017-12-08 09:04] VITALS: BP 159/115
[2017-12-08] MEDS: TERBINAFINE HCL 1% 30 GM CREAM TP SCH ×2 (09:15→16:18)
[2017-12-08 16:22] VITALS: BP 126/81
[2017-12-08] MEDS: IBUPROFEN 400 MG TABLET PO PRN (21:41)
[2017-12-08 21:46] VITALS: BP 121/77
[2017-12-09 01:29] VITALS: BP 129/80
[2017-12-09 06:28] LABS: GLUCOMETER DEV NAME(LOC) 3EI B; GLUCOSE,POINT OF CARE 115 MG/DL (70-110)
[2017-12-09] MEDS: MetFORMIN HCL 500 MG TABLET PO SCH (07:09)
[2017-12-09] MEDS: ASPIRIN 81 MG CHEWABLE TABLET PO SCH (07:53)
[2017-12-09] MEDS: MULTIVITAMINS, THERAPEUTIC TABLET PO SCH (07:53)
[2017-12-09] MEDS: LITHIUM CARBONATE 450 MG ER TABLET PO SCH ×3 (07:53→16:35)
[2017-12-09] MEDS: AmLODIPine BESYLATE 5 MG TABLET PO SCH (07:53)
[2017-12-09] MEDS: DOCUSATE SODIUM 100 MG CAPSULE PO SCH ×2 (07:54→16:35)
[2017-12-09] MEDS: OMEPRAZOLE 20 MG CAPSULE PO SCH (07:54)
[2017-12-09] MEDS: TRIHEXYPHENIDYL HCL 5 MG TABLET PO SCH ×3 (07:54→16:35)
[2017-12-09] MEDS: FLUoxetine HCL 20 MG CAPSULE PO SCH (07:54)
[2017-12-09] MEDS: HALOPERIDOL 10 MG TABLET PO SCH ×2 (07:56→16:35)
[2017-12-09] MEDS: TERBINAFINE HCL 1% 30 GM CREAM TP SCH ×2 (08:03→16:39)
[2017-12-09 09:11] VITALS: BP 142/77
[2017-12-09 17:01] VITALS: BP 125/79
[2017-12-10 06:02] LABS: GLUCOMETER DEV NAME(LOC) 3EI B; GLUCOSE,POINT OF CARE 113 MG/DL (70-110)
[2017-12-10] MEDS: MetFORMIN HCL 500 MG TABLET PO SCH (06:42)
[2017-12-10 06:45] VITALS: BP 146/83
[2017-12-10 08:15] VITALS: BP 151/86
[2017-12-10] MEDS: OMEPRAZOLE 20 MG CAPSULE PO SCH (08:16)
[2017-12-10] MEDS: LITHIUM CARBONATE 450 MG ER TABLET PO SCH ×3 (08:16→16:50)
[2017-12-10] MEDS: DOCUSATE SODIUM 100 MG CAPSULE PO SCH ×2 (08:16→16:49)
[2017-12-10] MEDS: ASPIRIN 81 MG CHEWABLE TABLET PO SCH (08:16)
[2017-12-10] MEDS: HALOPERIDOL 10 MG TABLET PO SCH ×2 (08:16→16:49)
[2017-12-10] MEDS: MULTIVITAMINS, THERAPEUTIC TABLET PO SCH (08:16)
[2017-12-10] MEDS: TRIHEXYPHENIDYL HCL 5 MG TABLET PO SCH ×3 (08:16→16:50)
[2017-12-10] MEDS: FLUoxetine HCL 20 MG CAPSULE PO SCH (08:23)
[2017-12-10] MEDS: AmLODIPine BESYLATE 5 MG TABLET PO SCH (08:23)
[2017-12-10] MEDS: TERBINAFINE HCL 1% 30 GM CREAM TP SCH ×2 (10:18→16:50)
[2017-12-10 16:20] VITALS: BP 133/81
[2017-12-10 16:53] LABS: GLUCOMETER DEV NAME(LOC) 3EX 1; GLUCOSE,POINT OF CARE 111 MG/DL (70-110)
[2017-12-11 05:38] LABS: GLUCOMETER DEV NAME(LOC) 3EI B; GLUCOSE,POINT OF CARE 127 MG/DL (70-110)
[2017-12-11] MEDS: MetFORMIN HCL 500 MG TABLET PO SCH (07:04)
[2017-12-11 07:55] VITALS: BP 118/86
[2017-12-11 08:00] VITALS: BP 118/86
[2017-12-11] MEDS: AmLODIPine BESYLATE 5 MG TABLET PO SCH (09:00)
[2017-12-11] MEDS: MULTIVITAMINS, THERAPEUTIC TABLET PO SCH (09:53)
[2017-12-11] MEDS: DOCUSATE SODIUM 100 MG CAPSULE PO SCH ×2 (09:54→16:10)
[2017-12-11] MEDS: HALOPERIDOL 10 MG TABLET PO SCH ×2 (09:54→16:11)
[2017-12-11] MEDS: FLUoxetine HCL 20 MG CAPSULE PO SCH (09:54)
[2017-12-11] MEDS: ASPIRIN 81 MG CHEWABLE TABLET PO SCH (09:54)
[2017-12-11] MEDS: OMEPRAZOLE 20 MG CAPSULE PO SCH (09:54)
[2017-12-11] MEDS: TRIHEXYPHENIDYL HCL 5 MG TABLET PO SCH ×3 (09:54→16:10)
[2017-12-11] MEDS: LITHIUM CARBONATE 450 MG ER TABLET PO SCH ×3 (09:54→16:10)
[2017-12-11] MEDS: TERBINAFINE HCL 1% 30 GM CREAM TP SCH ×2 (09:56→16:09)
[2017-12-11 16:32] LABS: GLUCOMETER DEV NAME(LOC) 3EX 1; GLUCOSE,POINT OF CARE 106 MG/DL (70-110)
[2017-12-11] MEDS ORDERED: LITHIUM CARBONATE 600 MG CAPSULE PO SCH (17:00)
[2017-12-11 18:10] VITALS: BP 136/85
[2017-12-12 05:33] LABS: GLUCOMETER DEV NAME(LOC) 3EI B; GLUCOSE,POINT OF CARE 88 MG/DL (70-110)
[2017-12-12] MEDS: MetFORMIN HCL 500 MG TABLET PO SCH (06:40)
[2017-12-12] MEDS: MULTIVITAMINS, THERAPEUTIC TABLET PO SCH (08:00)
[2017-12-12] MEDS: FLUoxetine HCL 20 MG CAPSULE PO SCH (09:00)
[2017-12-12] MEDS: AmLODIPine BESYLATE 5 MG TABLET PO SCH (09:00)
[2017-12-12] MEDS: HALOPERIDOL 10 MG TABLET PO SCH ×2 (09:00→16:39)
[2017-12-12] MEDS: LITHIUM CARBONATE 600 MG CAPSULE PO SCH ×3 (09:00→16:39)
[2017-12-12] MEDS: DOCUSATE SODIUM 100 MG CAPSULE PO SCH ×2 (09:00→16:39)
[2017-12-12] MEDS: TRIHEXYPHENIDYL HCL 5 MG TABLET PO SCH ×3 (09:00→16:39)
[2017-12-12] MEDS: OMEPRAZOLE 20 MG CAPSULE PO SCH (09:00)
[2017-12-12] MEDS: TERBINAFINE HCL 1% 30 GM CREAM TP SCH ×2 (09:00→16:48)
[2017-12-12] MEDS: ASPIRIN 81 MG CHEWABLE TABLET PO SCH (09:00)
[2017-12-12 16:16] VITALS: BP 139/74
[2017-12-12] MEDS: LORazepam 2 MG TABLET PO PRN (16:40)
[2017-12-12] MEDS: INSULIN ASPART 100 UNITS/ML - NON-FORMULARY SQ PRN (17:07)
[2017-12-12] MEDS: PALIPERIDONE 3 MG ER TABLET PO SCH (18:26)
[2017-12-13 01:30] VITALS: BP 129/86
[2017-12-13] MEDS: HALOPERIDOL 5 MG TABLET PO PRN (02:46)
[2017-12-13] MEDS: LORazepam 2 MG TABLET PO PRN (02:46)
[2017-12-13] MEDS: INSULIN ASPART 100 UNITS/ML - NON-FORMULARY SQ PRN (07:10)
[2017-12-13] MEDS: MetFORMIN HCL 500 MG TABLET PO SCH (07:10)
[2017-12-13] MEDS: MULTIVITAMINS, THERAPEUTIC TABLET PO SCH (08:20)
[2017-12-13] MEDS: ASPIRIN 81 MG CHEWABLE TABLET PO SCH (08:20)
[2017-12-13] MEDS: OMEPRAZOLE 20 MG CAPSULE PO SCH (08:21)
[2017-12-13] MEDS: DOCUSATE SODIUM 100 MG CAPSULE PO SCH ×2 (08:21→17:07)
[2017-12-13] MEDS: PALIPERIDONE 3 MG ER TABLET PO SCH ×2 (08:21→17:07)
[2017-12-13] MEDS: TRIHEXYPHENIDYL HCL 5 MG TABLET PO SCH ×3 (08:21→17:07)
[2017-12-13] MEDS: LITHIUM CARBONATE 600 MG CAPSULE PO SCH ×3 (08:21→17:07)
[2017-12-13] MEDS: HALOPERIDOL 10 MG TABLET PO SCH ×2 (08:21→17:07)
[2017-12-13 08:30] VITALS: BP 135/74
[2017-12-13] MEDS: AmLODIPine BESYLATE 5 MG TABLET PO SCH (09:00)
[2017-12-13] MEDS: FLUoxetine HCL 20 MG CAPSULE PO SCH (09:00)
[2017-12-13] MEDS: TERBINAFINE HCL 1% 30 GM CREAM TP SCH ×2 (09:30→17:08)
[2017-12-13 14:04] LABS: GLUCOMETER DEV NAME(LOC) 3EX 1; GLUCOSE,POINT OF CARE 142 MG/DL (70-110)
[2017-12-13 14:05] LABS: GLUCOMETER DEV NAME(LOC) 3EI B; GLUCOSE,POINT OF CARE 151 MG/DL (70-110)
[2017-12-14 01:44] VITALS: BP 130/77
[2017-12-14 05:32] LABS: GLUCOMETER DEV NAME(LOC) 3EI B; GLUCOSE,POINT OF CARE 163 MG/DL (70-110)
[2017-12-14] MEDS: MetFORMIN HCL 500 MG TABLET PO SCH (06:51)
[2017-12-14] MEDS: INSULIN ASPART 100 UNITS/ML - NON-FORMULARY SQ PRN (07:05)
[2017-12-14 08:05] VITALS: BP 137/92
[2017-12-14] MEDS: TRIHEXYPHENIDYL HCL 5 MG TABLET PO SCH ×3 (08:10→16:35)
[2017-12-14] MEDS: PALIPERIDONE 3 MG ER TABLET PO SCH ×2 (08:10→16:35)
[2017-12-14] MEDS: OMEPRAZOLE 20 MG CAPSULE PO SCH (08:10)
[2017-12-14] MEDS: AmLODIPine BESYLATE 5 MG TABLET PO SCH (08:10)
[2017-12-14] MEDS: FLUoxetine HCL 20 MG CAPSULE PO SCH (08:11)
[2017-12-14] MEDS: ASPIRIN 81 MG CHEWABLE TABLET PO SCH (08:11)
[2017-12-14] MEDS: MULTIVITAMINS, THERAPEUTIC TABLET PO SCH (08:11)
[2017-12-14] MEDS: LITHIUM CARBONATE 600 MG CAPSULE PO SCH (08:11)
[2017-12-14] MEDS: DOCUSATE SODIUM 100 MG CAPSULE PO SCH ×2 (08:11→16:35)
[2017-12-14] MEDS: HALOPERIDOL 10 MG TABLET PO SCH ×2 (08:11→16:35)
[2017-12-14] MEDS: LITHIUM CARBONATE 300 MG TABLET PO SCH ×2 (14:13→16:36)
[2017-12-14] MEDS: TERBINAFINE HCL 1% 30 GM CREAM TP SCH ×2 (14:53→16:36)
[2017-12-14 16:37] LABS: GLUCOMETER DEV NAME(LOC) 3EX 1; GLUCOSE,POINT OF CARE 135 MG/DL (70-110)
[2017-12-14 17:02] VITALS: BP 129/75
[2017-12-15 04:46] VITALS: BP 117/69
[2017-12-15 06:07] LABS: GLUCOMETER DEV NAME(LOC) 3EI B; GLUCOSE,POINT OF CARE 149 MG/DL (70-110)
[2017-12-15] MEDS: MetFORMIN HCL 500 MG TABLET PO SCH (06:36)
[2017-12-15] MEDS: INSULIN ASPART 100 UNITS/ML - NON-FORMULARY SQ PRN ×2 (07:14→16:48)
[2017-12-15 08:19] VITALS: BP 133/83
[2017-12-15] MEDS: ASPIRIN 81 MG CHEWABLE TABLET PO SCH (08:34)
[2017-12-15] MEDS: DOCUSATE SODIUM 100 MG CAPSULE PO SCH ×2 (08:34→16:37)
[2017-12-15] MEDS: TRIHEXYPHENIDYL HCL 5 MG TABLET PO SCH ×3 (08:34→16:37)
[2017-12-15] MEDS: MULTIVITAMINS, THERAPEUTIC TABLET PO SCH (08:34)
[2017-12-15] MEDS: FLUoxetine HCL 20 MG CAPSULE PO SCH (08:36)
[2017-12-15] MEDS: HALOPERIDOL 10 MG TABLET PO SCH ×2 (08:36→16:37)
[2017-12-15] MEDS: PALIPERIDONE 3 MG ER TABLET PO SCH ×2 (08:36→16:37)
[2017-12-15] MEDS: LITHIUM CARBONATE 450 MG ER TABLET PO SCH ×3 (08:36→16:37)
[2017-12-15] MEDS: AmLODIPine BESYLATE 5 MG TABLET PO SCH (08:36)
[2017-12-15] MEDS: OMEPRAZOLE 20 MG CAPSULE PO SCH (08:36)
[2017-12-15] MEDS: TERBINAFINE HCL 1% 30 GM CREAM TP SCH ×2 (12:59→16:38)
[2017-12-15 16:48] LABS: GLUCOMETER DEV NAME(LOC) 3EX 1; GLUCOSE,POINT OF CARE 164 MG/DL (70-110)
[2017-12-15 17:21] VITALS: BP 117/64
[2017-12-16 04:02] VITALS: BP 118/70
[2017-12-16 06:08] LABS: GLUCOMETER DEV NAME(LOC) 3EI B; GLUCOSE,POINT OF CARE 175 MG/DL (70-110)
[2017-12-16] MEDS: MetFORMIN HCL 500 MG TABLET PO SCH (07:07)
[2017-12-16] MEDS: INSULIN ASPART 100 UNITS/ML - NON-FORMULARY SQ PRN (07:08)
[2017-12-16] MEDS: TRIHEXYPHENIDYL HCL 5 MG TABLET PO SCH ×3 (08:03→16:29)
[2017-12-16] MEDS: MULTIVITAMINS, THERAPEUTIC TABLET PO SCH (08:03)
[2017-12-16 08:04] VITALS: BP 148/86
[2017-12-16] MEDS: ASPIRIN 81 MG CHEWABLE TABLET PO SCH (08:04)
[2017-12-16] MEDS: DOCUSATE SODIUM 100 MG CAPSULE PO SCH ×2 (08:04→16:29)
[2017-12-16] MEDS: HALOPERIDOL 10 MG TABLET PO SCH ×2 (08:04→16:29)
[2017-12-16] MEDS: PALIPERIDONE 3 MG ER TABLET PO SCH ×2 (08:04→16:29)
[2017-12-16] MEDS: LITHIUM CARBONATE 450 MG ER TABLET PO SCH ×3 (08:04→16:29)
[2017-12-16] MEDS: AmLODIPine BESYLATE 5 MG TABLET PO SCH (08:05)
[2017-12-16] MEDS: FLUoxetine HCL 20 MG CAPSULE PO SCH (08:06)
[2017-12-16] MEDS: OMEPRAZOLE 20 MG CAPSULE PO SCH (08:06)
[2017-12-16] MEDS: TERBINAFINE HCL 1% 30 GM CREAM TP SCH ×2 (14:44→16:30)
[2017-12-16 16:32] LABS: GLUCOMETER DEV NAME(LOC) 3EX 1; GLUCOSE,POINT OF CARE 139 MG/DL (70-110)
[2017-12-16 17:11] VITALS: BP 116/69
[2017-12-17 00:12] VITALS: BP 133/84
[2017-12-17 05:52] LABS: GLUCOMETER DEV NAME(LOC) 3EI B; GLUCOSE,POINT OF CARE 126 MG/DL (70-110)
[2017-12-17] MEDS: MetFORMIN HCL 500 MG TABLET PO SCH (06:36)
[2017-12-17 08:45] VITALS: BP 154/83
[2017-12-17] MEDS: OMEPRAZOLE 20 MG CAPSULE PO SCH (09:33)
[2017-12-17] MEDS: MULTIVITAMINS, THERAPEUTIC TABLET PO SCH (09:33)
[2017-12-17] MEDS: DOCUSATE SODIUM 100 MG CAPSULE PO SCH ×2 (09:33→16:10)
[2017-12-17] MEDS: ASPIRIN 81 MG CHEWABLE TABLET PO SCH (09:34)
[2017-12-17] MEDS: HALOPERIDOL 10 MG TABLET PO SCH ×2 (09:36→16:10)
[2017-12-17] MEDS: FLUoxetine HCL 20 MG CAPSULE PO SCH (09:36)
[2017-12-17] MEDS: PALIPERIDONE 3 MG ER TABLET PO SCH ×2 (09:36→16:15)
[2017-12-17] MEDS: AmLODIPine BESYLATE 5 MG TABLET PO SCH (09:36)
[2017-12-17] MEDS: TRIHEXYPHENIDYL HCL 5 MG TABLET PO SCH ×3 (09:37→16:10)
[2017-12-17] MEDS: LITHIUM CARBONATE 450 MG ER TABLET PO SCH ×3 (09:37→16:10)
[2017-12-17] MEDS: TERBINAFINE HCL 1% 30 GM CREAM TP SCH ×2 (09:42→16:11)
[2017-12-17 18:18] LABS: GLUCOMETER DEV NAME(LOC) 3EX 1; GLUCOSE,POINT OF CARE 168 MG/DL (70-110)
[2017-12-17] MEDS: INSULIN ASPART 100 UNITS/ML - NON-FORMULARY SQ PRN (18:21)
[2017-12-17 19:47] VITALS: BP 112/76
[2017-12-17 20:47] LABS: GLUCOMETER DEV NAME(LOC) 3EX 1; GLUCOSE,POINT OF CARE 103 MG/DL (70-110)
[2017-12-18 00:14] VITALS: BP 132/83
[2017-12-18] MEDS: LORazepam 2 MG TABLET PO PRN (00:16)
[2017-12-18 05:27] LABS: GLUCOMETER DEV NAME(LOC) 3EI B; GLUCOSE,POINT OF CARE 106 MG/DL (70-110)
[2017-12-18] MEDS: MetFORMIN HCL 500 MG TABLET PO SCH (07:16)
[2017-12-18] MEDS: DOCUSATE SODIUM 100 MG CAPSULE PO SCH ×2 (08:37→16:46)
[2017-12-18] MEDS: OMEPRAZOLE 20 MG CAPSULE PO SCH (08:37)
[2017-12-18] MEDS: MULTIVITAMINS, THERAPEUTIC TABLET PO SCH (08:37)
[2017-12-18] MEDS: LITHIUM CARBONATE 450 MG ER TABLET PO SCH ×3 (08:38→16:46)
[2017-12-18] MEDS: ASPIRIN 81 MG CHEWABLE TABLET PO SCH (08:38)
[2017-12-18] MEDS: AmLODIPine BESYLATE 5 MG TABLET PO SCH (08:38)
[2017-12-18] MEDS: FLUoxetine HCL 20 MG CAPSULE PO SCH (08:42)
[2017-12-18] MEDS: TERBINAFINE HCL 1% 30 GM CREAM TP SCH ×3 (08:42→13:22)
[2017-12-18] MEDS: TRIHEXYPHENIDYL HCL 5 MG TABLET PO SCH ×3 (08:42→16:46)
[2017-12-18] MEDS: PALIPERIDONE 3 MG ER TABLET PO SCH ×2 (08:43→16:46)
[2017-12-18] MEDS: HALOPERIDOL 10 MG TABLET PO SCH ×2 (08:43→16:46)
[2017-12-18 08:46] VITALS: BP 117/84
[2017-12-18] MEDS: MUPIROCIN CALCIUM 2% 22 GM OINTMENT NASAL SCH ×2 (13:24→16:47)
[2017-12-18 16:59] LABS: GLUCOMETER DEV NAME(LOC) 3EX 1; GLUCOSE,POINT OF CARE 143 MG/DL (70-110)
[2017-12-18 17:11] VITALS: BP 107/76
[2017-12-18] MEDS: INSULIN ASPART 100 UNITS/ML - NON-FORMULARY SQ PRN (18:10)
[2017-12-19 01:46] VITALS: BP 133/75
[2017-12-19 05:33] LABS: GLUCOMETER DEV NAME(LOC) 3EI B; GLUCOSE,POINT OF CARE 158 MG/DL (70-110)
[2017-12-19] MEDS: INSULIN ASPART 100 UNITS/ML - NON-FORMULARY SQ PRN ×2 (07:08→17:14)
[2017-12-19] MEDS: MetFORMIN HCL 500 MG TABLET PO SCH (07:23)
[2017-12-19 08:15] VITALS: BP 146/81
[2017-12-19] MEDS: TERBINAFINE HCL 1% 30 GM CREAM TP SCH ×2 (09:00→16:57)
[2017-12-19] MEDS: DOCUSATE SODIUM 100 MG CAPSULE PO SCH ×2 (10:24→16:57)
[2017-12-19] MEDS: LITHIUM CARBONATE 450 MG ER TABLET PO SCH ×3 (10:24→16:57)
[2017-12-19] MEDS: TRIHEXYPHENIDYL HCL 5 MG TABLET PO SCH ×3 (10:24→16:56)
[2017-12-19] MEDS: ASPIRIN 81 MG CHEWABLE TABLET PO SCH (10:24)
[2017-12-19] MEDS: MULTIVITAMINS, THERAPEUTIC TABLET PO SCH (10:24)
[2017-12-19] MEDS: HALOPERIDOL 10 MG TABLET PO SCH ×2 (10:24→16:57)
[2017-12-19] MEDS: MUPIROCIN CALCIUM 2% 22 GM OINTMENT NASAL SCH ×2 (10:24→16:56)
[2017-12-19] MEDS: FLUoxetine HCL 20 MG CAPSULE PO SCH (10:24)
[2017-12-19] MEDS: AmLODIPine BESYLATE 5 MG TABLET PO SCH (10:24)
[2017-12-19] MEDS: PALIPERIDONE 3 MG ER TABLET PO SCH ×2 (10:25→16:57)
[2017-12-19] MEDS: OMEPRAZOLE 20 MG CAPSULE PO SCH (10:25)
[2017-12-19 16:17] VITALS: BP 120/67
[2017-12-19 17:02] LABS: GLUCOMETER DEV NAME(LOC) 3EX 1; GLUCOSE,POINT OF CARE 170 MG/DL (70-110)
[2017-12-20 01:32] VITALS: BP 138/80
[2017-12-20 05:28] LABS: GLUCOMETER DEV NAME(LOC) 3EI B; GLUCOSE,POINT OF CARE 103 MG/DL (70-110)
[2017-12-20] MEDS: MetFORMIN HCL 500 MG TABLET PO SCH (07:09)
[2017-12-20 09:00] VITALS: BP 137/73
[2017-12-20] MEDS: TRIHEXYPHENIDYL HCL 5 MG TABLET PO SCH ×3 (09:41→16:14)
[2017-12-20] MEDS: MULTIVITAMINS, THERAPEUTIC TABLET PO SCH (09:41)
[2017-12-20] MEDS: ASPIRIN 81 MG CHEWABLE TABLET PO SCH (09:41)
[2017-12-20] MEDS: FLUoxetine HCL 20 MG CAPSULE PO SCH (09:42)
[2017-12-20] MEDS: PALIPERIDONE 3 MG ER TABLET PO SCH ×2 (09:42→16:15)
[2017-12-20] MEDS: MUPIROCIN CALCIUM 2% 22 GM OINTMENT NASAL SCH ×2 (09:42→16:15)
[2017-12-20] MEDS: DOCUSATE SODIUM 100 MG CAPSULE PO SCH ×2 (09:42→16:14)
[2017-12-20] MEDS: TERBINAFINE HCL 1% 30 GM CREAM TP SCH ×2 (09:42→16:15)
[2017-12-20] MEDS: HALOPERIDOL 10 MG TABLET PO SCH ×2 (09:42→16:15)
[2017-12-20] MEDS: AmLODIPine BESYLATE 5 MG TABLET PO SCH (09:42)
[2017-12-20] MEDS: OMEPRAZOLE 20 MG CAPSULE PO SCH (09:42)
[2017-12-20] MEDS: LITHIUM CARBONATE 450 MG ER TABLET PO SCH ×3 (09:42→16:14)
[2017-12-20 16:32] LABS: GLUCOMETER DEV NAME(LOC) 3EX 1; GLUCOSE,POINT OF CARE 133 MG/DL (70-110)
[2017-12-20 17:07] VITALS: BP 128/78
[2017-12-21 00:55] VITALS: BP 116/82
[2017-12-21 05:33] LABS: GLUCOMETER DEV NAME(LOC) 3EI B; GLUCOSE,POINT OF CARE 123 MG/DL (70-110)
[2017-12-21] MEDS: MetFORMIN HCL 500 MG TABLET PO SCH (06:43)
[2017-12-21 08:17] VITALS: BP 124/67
[2017-12-21] MEDS: MULTIVITAMINS, THERAPEUTIC TABLET PO SCH (08:34)
[2017-12-21] MEDS: TRIHEXYPHENIDYL HCL 5 MG TABLET PO SCH ×3 (08:34→16:00)
[2017-12-21] MEDS: DOCUSATE SODIUM 100 MG CAPSULE PO SCH ×2 (08:34→16:00)
[2017-12-21] MEDS: ASPIRIN 81 MG CHEWABLE TABLET PO SCH (08:34)
[2017-12-21] MEDS: LITHIUM CARBONATE 450 MG ER TABLET PO SCH ×3 (08:34→16:00)
[2017-12-21] MEDS: OMEPRAZOLE 20 MG CAPSULE PO SCH (08:35)
[2017-12-21] MEDS: FLUoxetine HCL 20 MG CAPSULE PO SCH (08:35)
[2017-12-21] MEDS: HALOPERIDOL 10 MG TABLET PO SCH ×2 (08:35→16:00)
[2017-12-21] MEDS: PALIPERIDONE 3 MG ER TABLET PO SCH ×2 (08:35→16:00)
[2017-12-21] MEDS: AmLODIPine BESYLATE 5 MG TABLET PO SCH (08:37)
[2017-12-21] MEDS: TERBINAFINE HCL 1% 30 GM CREAM TP SCH ×2 (08:59→16:03)
[2017-12-21] MEDS: MUPIROCIN CALCIUM 2% 22 GM OINTMENT NASAL SCH ×2 (09:08→16:03)
[2017-12-21 16:03] LABS: GLUCOMETER DEV NAME(LOC) 3EX 1; GLUCOSE,POINT OF CARE 142 MG/DL (70-110)
[2017-12-21] MEDS: INSULIN ASPART 100 UNITS/ML - NON-FORMULARY SQ PRN (16:41)
[2017-12-21 17:16] VITALS: BP 125/69
[2017-12-22 00:05] VITALS: BP 125/71
[2017-12-22] MEDS: IBUPROFEN 400 MG TABLET PO PRN (00:11)
[2017-12-22 05:52] LABS: GLUCOMETER DEV NAME(LOC) 3EI B; GLUCOSE,POINT OF CARE 103 MG/DL (70-110)
[2017-12-22] MEDS: MetFORMIN HCL 500 MG TABLET PO SCH (07:18)
[2017-12-22] MEDS: PALIPERIDONE 3 MG ER TABLET PO SCH ×2 (08:18→16:52)
[2017-12-22] MEDS: DOCUSATE SODIUM 100 MG CAPSULE PO SCH ×2 (08:18→16:52)
[2017-12-22] MEDS: LITHIUM CARBONATE 450 MG ER TABLET PO SCH ×3 (08:18→16:52)
[2017-12-22] MEDS: TRIHEXYPHENIDYL HCL 5 MG TABLET PO SCH ×3 (08:18→17:18)
[2017-12-22] MEDS: OMEPRAZOLE 20 MG CAPSULE PO SCH (08:18)
[2017-12-22] MEDS: MUPIROCIN CALCIUM 2% 22 GM OINTMENT NASAL SCH ×2 (08:18→16:52)
[2017-12-22] MEDS: MULTIVITAMINS, THERAPEUTIC TABLET PO SCH (08:19)
[2017-12-22] MEDS: AmLODIPine BESYLATE 5 MG TABLET PO SCH (08:19)
[2017-12-22] MEDS: HALOPERIDOL 10 MG TABLET PO SCH ×2 (08:19→16:52)
[2017-12-22] MEDS: ASPIRIN 81 MG CHEWABLE TABLET PO SCH (08:19)
[2017-12-22] MEDS: FLUoxetine HCL 20 MG CAPSULE PO SCH (08:19)
[2017-12-22 09:00] VITALS: BP 143/80
[2017-12-22] MEDS: TERBINAFINE HCL 1% 30 GM CREAM TP SCH ×2 (09:00→16:59)
[2017-12-22 16:47] VITALS: BP 131/78
[2017-12-22 17:03] LABS: GLUCOMETER DEV NAME(LOC) 3EI B; GLUCOSE,POINT OF CARE 108 MG/DL (70-110)
[2017-12-23 00:30] VITALS: BP 125/71
[2017-12-23] MEDS: LORazepam 2 MG TABLET PO PRN (02:09)
[2017-12-23 05:33] LABS: GLUCOMETER DEV NAME(LOC) 3EI B; GLUCOSE,POINT OF CARE 127 MG/DL (70-110)
[2017-12-23] MEDS: MetFORMIN HCL 500 MG TABLET PO SCH (07:20)
[2017-12-23] MEDS: OMEPRAZOLE 20 MG CAPSULE PO SCH (08:47)
[2017-12-23] MEDS: TRIHEXYPHENIDYL HCL 5 MG TABLET PO SCH ×3 (08:48→16:12)
[2017-12-23] MEDS: ASPIRIN 81 MG CHEWABLE TABLET PO SCH (08:48)
[2017-12-23] MEDS: DOCUSATE SODIUM 100 MG CAPSULE PO SCH ×2 (08:48→16:12)
[2017-12-23] MEDS: MULTIVITAMINS, THERAPEUTIC TABLET PO SCH (08:48)
[2017-12-23] MEDS: AmLODIPine BESYLATE 5 MG TABLET PO SCH (08:48)
[2017-12-23] MEDS: LITHIUM CARBONATE 450 MG ER TABLET PO SCH ×3 (08:48→16:12)
[2017-12-23] MEDS: PALIPERIDONE 3 MG ER TABLET PO SCH ×2 (08:49→16:13)
[2017-12-23] MEDS: HALOPERIDOL 10 MG TABLET PO SCH ×2 (08:49→16:12)
[2017-12-23] MEDS: FLUoxetine HCL 20 MG CAPSULE PO SCH (08:50)
[2017-12-23] MEDS: TERBINAFINE HCL 1% 30 GM CREAM TP SCH ×2 (08:50→16:13)
[2017-12-23 09:00] VITALS: BP 108/62
[2017-12-23 17:32] VITALS: BP 128/72
[2017-12-24 00:39] VITALS: BP 122/81
[2017-12-24 05:37] LABS: GLUCOMETER DEV NAME(LOC) 3EI B; GLUCOSE,POINT OF CARE 119 MG/DL (70-110)
[2017-12-24] MEDS: MetFORMIN HCL 500 MG TABLET PO SCH (07:10)
[2017-12-24 08:23] VITALS: BP 132/81
[2017-12-24] MEDS: TRIHEXYPHENIDYL HCL 5 MG TABLET PO SCH ×3 (08:33→16:15)
[2017-12-24] MEDS: MULTIVITAMINS, THERAPEUTIC TABLET PO SCH (08:33)
[2017-12-24] MEDS: ASPIRIN 81 MG CHEWABLE TABLET PO SCH (08:33)
[2017-12-24] MEDS: LITHIUM CARBONATE 450 MG ER TABLET PO SCH ×3 (08:33→16:15)
[2017-12-24] MEDS: OMEPRAZOLE 20 MG CAPSULE PO SCH (08:34)
[2017-12-24] MEDS: AmLODIPine BESYLATE 5 MG TABLET PO SCH (08:34)
[2017-12-24] MEDS: DOCUSATE SODIUM 100 MG CAPSULE PO SCH ×2 (08:34→16:15)
[2017-12-24] MEDS: HALOPERIDOL 10 MG TABLET PO SCH ×2 (08:35→16:15)
[2017-12-24] MEDS: FLUoxetine HCL 20 MG CAPSULE PO SCH (08:35)
[2017-12-24] MEDS: PALIPERIDONE 3 MG ER TABLET PO SCH ×2 (08:35→16:15)
[2017-12-24] MEDS: TERBINAFINE HCL 1% 30 GM CREAM TP SCH ×2 (08:36→16:49)
[2017-12-24 16:27] LABS: GLUCOMETER DEV NAME(LOC) 3EX 1; GLUCOSE,POINT OF CARE 125 MG/DL (70-110)
[2017-12-24 17:34] VITALS: BP 122/76
[2017-12-25 06:02] LABS: GLUCOMETER DEV NAME(LOC) 3EI B; GLUCOSE,POINT OF CARE 129 MG/DL (70-110)
[2017-12-25] MEDS: MetFORMIN HCL 500 MG TABLET PO SCH (07:06)
[2017-12-25] MEDS: PALIPERIDONE 3 MG ER TABLET PO SCH ×2 (08:43→17:19)
[2017-12-25] MEDS: HALOPERIDOL 10 MG TABLET PO SCH ×2 (08:43→17:19)
[2017-12-25] MEDS: LITHIUM CARBONATE 450 MG ER TABLET PO SCH ×3 (08:43→17:19)
[2017-12-25] MEDS: TRIHEXYPHENIDYL HCL 5 MG TABLET PO SCH ×3 (08:43→17:19)
[2017-12-25] MEDS: FLUoxetine HCL 20 MG CAPSULE PO SCH (08:43)
[2017-12-25] MEDS: ASPIRIN 81 MG CHEWABLE TABLET PO SCH (08:44)
[2017-12-25] MEDS: MULTIVITAMINS, THERAPEUTIC TABLET PO SCH (08:44)
[2017-12-25] MEDS: AmLODIPine BESYLATE 5 MG TABLET PO SCH (08:44)
[2017-12-25] MEDS: OMEPRAZOLE 20 MG CAPSULE PO SCH (08:44)
[2017-12-25] MEDS: DOCUSATE SODIUM 100 MG CAPSULE PO SCH ×2 (08:45→17:19)
[2017-12-25] MEDS: TERBINAFINE HCL 1% 30 GM CREAM TP SCH ×2 (08:46→17:19)
[2017-12-25 09:51] VITALS: BP 124/76
[2017-12-25 16:16] VITALS: BP 131/82
[2017-12-25 17:22] LABS: GLUCOMETER DEV NAME(LOC) 3EX 1; GLUCOSE,POINT OF CARE 105 MG/DL (70-110)
[2017-12-26 03:51] VITALS: BP 134/74
[2017-12-26 06:07] LABS: GLUCOMETER DEV NAME(LOC) 3EI B; GLUCOSE,POINT OF CARE 113 MG/DL (70-110)
[2017-12-26] MEDS: MetFORMIN HCL 500 MG TABLET PO SCH (06:46)
[2017-12-26] MEDS: MULTIVITAMINS, THERAPEUTIC TABLET PO SCH (08:29)
[2017-12-26] MEDS: AmLODIPine BESYLATE 5 MG TABLET PO SCH (08:29)
[2017-12-26] MEDS: OMEPRAZOLE 20 MG CAPSULE PO SCH (08:29)
[2017-12-26] MEDS: HALOPERIDOL 10 MG TABLET PO SCH ×2 (08:30→16:23)
[2017-12-26] MEDS: TRIHEXYPHENIDYL HCL 5 MG TABLET PO SCH ×3 (08:30→16:23)
[2017-12-26] MEDS: FLUoxetine HCL 20 MG CAPSULE PO SCH (08:30)
[2017-12-26] MEDS: DOCUSATE SODIUM 100 MG CAPSULE PO SCH ×2 (08:30→16:23)
[2017-12-26] MEDS: PALIPERIDONE 3 MG ER TABLET PO SCH ×2 (08:30→16:23)
[2017-12-26] MEDS: LITHIUM CARBONATE 450 MG ER TABLET PO SCH ×3 (08:30→16:23)
[2017-12-26] MEDS: ASPIRIN 81 MG CHEWABLE TABLET PO SCH (08:30)
[2017-12-26] MEDS: TERBINAFINE HCL 1% 30 GM CREAM TP SCH ×2 (08:32→16:23)
[2017-12-26 09:41] VITALS: BP 122/74
[2017-12-26 16:27] LABS: GLUCOMETER DEV NAME(LOC) 3EX 1; GLUCOSE,POINT OF CARE 123 MG/DL (70-110)
[2017-12-26 16:40] VITALS: BP 133/73
[2017-12-27 01:36] VITALS: BP 109/67
[2017-12-27 05:37] LABS: GLUCOMETER DEV NAME(LOC) 3EI B; GLUCOSE,POINT OF CARE 114 MG/DL (70-110)
[2017-12-27] MEDS: MetFORMIN HCL 500 MG TABLET PO SCH (06:37)
[2017-12-27] MEDS: MULTIVITAMINS, THERAPEUTIC TABLET PO SCH (09:16)
[2017-12-27] MEDS: DOCUSATE SODIUM 100 MG CAPSULE PO SCH ×2 (09:17→16:28)
[2017-12-27] MEDS: OMEPRAZOLE 20 MG CAPSULE PO SCH (09:17)
[2017-12-27] MEDS: FLUoxetine HCL 20 MG CAPSULE PO SCH (09:17)
[2017-12-27] MEDS: ASPIRIN 81 MG CHEWABLE TABLET PO SCH (09:17)
[2017-12-27] MEDS: AmLODIPine BESYLATE 5 MG TABLET PO SCH (09:17)
[2017-12-27] MEDS: LITHIUM CARBONATE 450 MG ER TABLET PO SCH ×3 (09:17→16:29)
[2017-12-27] MEDS: TRIHEXYPHENIDYL HCL 5 MG TABLET PO SCH ×3 (09:18→16:28)
[2017-12-27] MEDS: PALIPERIDONE 3 MG ER TABLET PO SCH ×2 (09:18→16:28)
[2017-12-27] MEDS: TERBINAFINE HCL 1% 30 GM CREAM TP SCH ×2 (09:18→16:29)
[2017-12-27] MEDS: HALOPERIDOL 10 MG TABLET PO SCH ×2 (09:18→16:27)
[2017-12-27 09:45] VITALS: BP 131/67
[2017-12-27 17:02] VITALS: BP 124/78
[2017-12-27 21:02] LABS: GLUCOMETER DEV NAME(LOC) 3EX 1; GLUCOSE,POINT OF CARE 97 MG/DL (70-110)
[2017-12-28 01:10] VITALS: BP 124/75
[2017-12-28 05:28] LABS: GLUCOMETER DEV NAME(LOC) 3EI B; GLUCOSE,POINT OF CARE 97 MG/DL (70-110)
[2017-12-28] MEDS: MetFORMIN HCL 500 MG TABLET PO SCH (06:56)
[2017-12-28] MEDS: OMEPRAZOLE 20 MG CAPSULE PO SCH (09:15)
[2017-12-28] MEDS: ASPIRIN 81 MG CHEWABLE TABLET PO SCH (09:16)
[2017-12-28] MEDS: LITHIUM CARBONATE 450 MG ER TABLET PO SCH ×3 (09:16→16:36)
[2017-12-28] MEDS: AmLODIPine BESYLATE 5 MG TABLET PO SCH (09:16)
[2017-12-28] MEDS: TRIHEXYPHENIDYL HCL 5 MG TABLET PO SCH ×3 (09:16→16:36)
[2017-12-28] MEDS: MULTIVITAMINS, THERAPEUTIC TABLET PO SCH (09:16)
[2017-12-28] MEDS: HALOPERIDOL 10 MG TABLET PO SCH ×2 (09:16→16:36)
[2017-12-28] MEDS: TERBINAFINE HCL 1% 30 GM CREAM TP SCH ×2 (09:17→16:38)
[2017-12-28] MEDS: PALIPERIDONE 3 MG ER TABLET PO SCH ×2 (09:17→16:36)
[2017-12-28] MEDS: FLUoxetine HCL 20 MG CAPSULE PO SCH (09:17)
[2017-12-28] MEDS: DOCUSATE SODIUM 100 MG CAPSULE PO SCH ×2 (09:23→16:35)
[2017-12-28 09:30] VITALS: BP 132/71
[2017-12-28 18:47] VITALS: BP 137/86
[2017-12-29 06:09] VITALS: BP 130/78
[2017-12-29] MEDS: MetFORMIN HCL 500 MG TABLET PO SCH (06:39)
[2017-12-29] MEDS: TRIHEXYPHENIDYL HCL 5 MG TABLET PO SCH ×3 (08:24→16:56)
[2017-12-29] MEDS: MULTIVITAMINS, THERAPEUTIC TABLET PO SCH (08:24)
[2017-12-29] MEDS: ASPIRIN 81 MG CHEWABLE TABLET PO SCH (08:25)
[2017-12-29] MEDS: DOCUSATE SODIUM 100 MG CAPSULE PO SCH ×2 (08:25→16:56)
[2017-12-29] MEDS: OMEPRAZOLE 20 MG CAPSULE PO SCH (08:25)
[2017-12-29] MEDS: AmLODIPine BESYLATE 5 MG TABLET PO SCH (08:25)
[2017-12-29] MEDS: TERBINAFINE HCL 1% 30 GM CREAM TP SCH ×2 (08:26→16:59)
[2017-12-29] MEDS: FLUoxetine HCL 20 MG CAPSULE PO SCH (08:26)
[2017-12-29] MEDS: HALOPERIDOL 10 MG TABLET PO SCH ×2 (08:26→16:57)
[2017-12-29] MEDS: PALIPERIDONE 3 MG ER TABLET PO SCH ×2 (08:26→16:56)
[2017-12-29] MEDS: LITHIUM CARBONATE 450 MG ER TABLET PO SCH ×3 (08:26→16:56)
[2017-12-29 09:32] VITALS: BP 117/77
[2017-12-29 17:03] LABS: GLUCOMETER DEV NAME(LOC) 3EX 1; GLUCOSE,POINT OF CARE 100 MG/DL (70-110)
[2017-12-29 19:00] VITALS: BP 122/72
[2017-12-30 01:28] VITALS: BP 115/78
[2017-12-30 06:02] LABS: GLUCOMETER DEV NAME(LOC) 3EI B; GLUCOSE,POINT OF CARE 99 MG/DL (70-110)
[2017-12-30] MEDS: MetFORMIN HCL 500 MG TABLET PO SCH (06:56)
[2017-12-30 08:30] VITALS: BP 115/65
[2017-12-30] MEDS: TERBINAFINE HCL 1% 30 GM CREAM TP SCH ×2 (09:00→16:54)
[2017-12-30] MEDS: AmLODIPine BESYLATE 5 MG TABLET PO SCH (09:00)
[2017-12-30] MEDS: ASPIRIN 81 MG CHEWABLE TABLET PO SCH (09:54)
[2017-12-30] MEDS: LITHIUM CARBONATE 450 MG ER TABLET PO SCH (09:54)
[2017-12-30] MEDS: DOCUSATE SODIUM 100 MG CAPSULE PO SCH ×2 (09:54→16:50)
[2017-12-30] MEDS: MULTIVITAMINS, THERAPEUTIC TABLET PO SCH (09:54)
[2017-12-30] MEDS: HALOPERIDOL 10 MG TABLET PO SCH ×2 (09:54→16:50)
[2017-12-30] MEDS: TRIHEXYPHENIDYL HCL 5 MG TABLET PO SCH ×3 (09:54→16:50)
[2017-12-30] MEDS: PALIPERIDONE 3 MG ER TABLET PO SCH ×2 (09:54→16:50)
[2017-12-30] MEDS: OMEPRAZOLE 20 MG CAPSULE PO SCH (09:55)
[2017-12-30] MEDS: FLUoxetine HCL 20 MG CAPSULE PO SCH (09:55)
[2017-12-30 11:34] LABS: ALANINE AMINOTRANSFERASE 26 U/L (12-78); ALBUMIN 3.7 g/dL (3.4-5.0); ALKALINE PHOSPHATASE 117 U/L (46-116); ANION GAP 4 mmol/L (8-16); ASPARTATE AMINOTRANSFERASE 16 U/L (15-37); BILIRUBIN,TOTAL 0.2 mg/dL (0.1-1.0); CALCIUM, TOTAL 9.7 mg/dL (8.8-10.5); CARBON DIOXIDE 31 mmol/L (22-29); CHLORIDE 104 mmol/L (98-107); CREATININE 0.91 mg/dL (0.60-1.30); GLOMERULAR FILTR. RATE CALC > 60 mL/min (>60); GLUCOSE,RANDOM 106 mg/dL (70-110); POTASSIUM 4.9 mmol/L (3.5-5.1); SODIUM SERUM 139 mmol/L (136-145); TOTAL PROTEIN, SERUM 7.6 g/dL (6.4-8.2); UREA NITROGEN, BLOOD 13 mg/dL (7-18)
[2017-12-30] MEDS: LITHIUM CARBONATE 300 MG ER TABLET PO SCH ×2 (13:00→16:50)
[2017-12-30 17:17] VITALS: BP 107/63
[2017-12-31 00:50] VITALS: BP 127/88
[2017-12-31] MEDS: MetFORMIN HCL 500 MG TABLET PO SCH (06:43)
[2017-12-31 09:00] VITALS: BP 124/72
[2017-12-31] MEDS: DOCUSATE SODIUM 100 MG CAPSULE PO SCH ×2 (09:29→17:03)
[2017-12-31] MEDS: OMEPRAZOLE 20 MG CAPSULE PO SCH (09:29)
[2017-12-31] MEDS: AmLODIPine BESYLATE 5 MG TABLET PO SCH (09:29)
[2017-12-31] MEDS: TRIHEXYPHENIDYL HCL 5 MG TABLET PO SCH ×3 (09:30→17:02)
[2017-12-31] MEDS: FLUoxetine HCL 20 MG CAPSULE PO SCH (09:30)
[2017-12-31] MEDS: LITHIUM CARBONATE 300 MG ER TABLET PO SCH ×3 (09:30→17:03)
[2017-12-31] MEDS: ASPIRIN 81 MG CHEWABLE TABLET PO SCH (09:30)
[2017-12-31] MEDS: MULTIVITAMINS, THERAPEUTIC TABLET PO SCH (09:30)
[2017-12-31] MEDS: HALOPERIDOL 10 MG TABLET PO SCH ×2 (09:31→17:02)
[2017-12-31] MEDS: PALIPERIDONE 3 MG ER TABLET PO SCH ×2 (09:31→17:02)
[2017-12-31] MEDS: TERBINAFINE HCL 1% 30 GM CREAM TP SCH ×2 (09:31→17:03)
[2017-12-31 18:48] VITALS: BP 112/65
[2018-01-01 01:30] VITALS: BP 105/68
[2018-01-01] MEDS: MetFORMIN HCL 500 MG TABLET PO SCH (06:46)
[2018-01-01] MEDS: DOCUSATE SODIUM 100 MG CAPSULE PO SCH ×2 (07:54→17:28)
[2018-01-01] MEDS: AmLODIPine BESYLATE 5 MG TABLET PO SCH (07:55)
[2018-01-01] MEDS: OMEPRAZOLE 20 MG CAPSULE PO SCH (07:55)
[2018-01-01] MEDS: MULTIVITAMINS, THERAPEUTIC TABLET PO SCH (07:55)
[2018-01-01] MEDS: ASPIRIN 81 MG CHEWABLE TABLET PO SCH (07:55)
[2018-01-01] MEDS: LITHIUM CARBONATE 300 MG ER TABLET PO SCH ×3 (07:56→17:28)
[2018-01-01] MEDS: TRIHEXYPHENIDYL HCL 5 MG TABLET PO SCH ×3 (07:56→17:28)
[2018-01-01] MEDS: PALIPERIDONE 3 MG ER TABLET PO SCH ×2 (07:56→17:29)
[2018-01-01] MEDS: HALOPERIDOL 10 MG TABLET PO SCH ×2 (07:56→17:28)
[2018-01-01] MEDS: FLUoxetine HCL 20 MG CAPSULE PO SCH (07:57)
[2018-01-01] MEDS: TERBINAFINE HCL 1% 30 GM CREAM TP SCH ×2 (08:03→17:33)
[2018-01-01 08:15] VITALS: BP 116/67
[2018-01-01 21:05] VITALS: BP 106/79
[2018-01-02 01:30] VITALS: BP 113/76
[2018-01-02] MEDS: MetFORMIN HCL 500 MG TABLET PO SCH (06:40)
[2018-01-02] MEDS: ASPIRIN 81 MG CHEWABLE TABLET PO SCH (08:30)
[2018-01-02] MEDS: DOCUSATE SODIUM 100 MG CAPSULE PO SCH ×2 (08:31→16:07)
[2018-01-02] MEDS: MULTIVITAMINS, THERAPEUTIC TABLET PO SCH (08:31)
[2018-01-02] MEDS: AmLODIPine BESYLATE 5 MG TABLET PO SCH (08:31)
[2018-01-02] MEDS: PALIPERIDONE 3 MG ER TABLET PO SCH ×2 (08:32→16:07)
[2018-01-02] MEDS: OMEPRAZOLE 20 MG CAPSULE PO SCH (08:32)
[2018-01-02] MEDS: HALOPERIDOL 10 MG TABLET PO SCH ×2 (08:32→16:07)
[2018-01-02] MEDS: TRIHEXYPHENIDYL HCL 5 MG TABLET PO SCH ×3 (08:32→16:07)
[2018-01-02] MEDS: FLUoxetine HCL 20 MG CAPSULE PO SCH (08:33)
[2018-01-02] MEDS: LITHIUM CARBONATE 300 MG ER TABLET PO SCH ×3 (08:33→16:07)
[2018-01-02] MEDS: TERBINAFINE HCL 1% 30 GM CREAM TP SCH ×2 (08:34→16:07)
[2018-01-02 09:00] VITALS: BP 121/67
[2018-01-02 17:28] VITALS: BP 108/71
[2018-01-03 01:39] VITALS: BP 121/74
[2018-01-03] MEDS: MetFORMIN HCL 500 MG TABLET PO SCH (06:37)
[2018-01-03] MEDS: ASPIRIN 81 MG CHEWABLE TABLET PO SCH (08:34)
[2018-01-03] MEDS: AmLODIPine BESYLATE 5 MG TABLET PO SCH (08:34)
[2018-01-03] MEDS: DOCUSATE SODIUM 100 MG CAPSULE PO SCH ×2 (08:34→17:39)
[2018-01-03] MEDS: OMEPRAZOLE 20 MG CAPSULE PO SCH (08:34)
[2018-01-03] MEDS: TRIHEXYPHENIDYL HCL 5 MG TABLET PO SCH ×3 (08:35→17:39)
[2018-01-03] MEDS: FLUoxetine HCL 20 MG CAPSULE PO SCH (08:35)
[2018-01-03] MEDS: HALOPERIDOL 10 MG TABLET PO SCH ×2 (08:35→17:39)
[2018-01-03] MEDS: PALIPERIDONE 3 MG ER TABLET PO SCH ×2 (08:35→17:39)
[2018-01-03] MEDS: LITHIUM CARBONATE 300 MG ER TABLET PO SCH ×3 (08:35→17:39)
[2018-01-03] MEDS: MULTIVITAMINS, THERAPEUTIC TABLET PO SCH (08:38)
[2018-01-03] MEDS: TERBINAFINE HCL 1% 30 GM CREAM TP SCH ×2 (09:00→17:40)
[2018-01-03 09:26] VITALS: BP 121/77
[2018-01-03] MEDS: HALOPERIDOL DECANOATE 50 MG/ML VIAL IM SCH (12:25)
[2018-01-03 17:00] VITALS: BP 121/83
[2018-01-04 02:44] VITALS: BP 109/65
[2018-01-04] MEDS: MetFORMIN HCL 500 MG TABLET PO SCH (06:36)
[2018-01-04 08:30] VITALS: BP 137/72
[2018-01-04] MEDS: TRIHEXYPHENIDYL HCL 5 MG TABLET PO SCH ×3 (09:08→16:32)
[2018-01-04] MEDS: AmLODIPine BESYLATE 5 MG TABLET PO SCH (09:08)
[2018-01-04] MEDS: HALOPERIDOL 10 MG TABLET PO SCH ×2 (09:09→16:31)
[2018-01-04] MEDS: DOCUSATE SODIUM 100 MG CAPSULE PO SCH ×2 (09:09→16:31)
[2018-01-04] MEDS: ASPIRIN 81 MG CHEWABLE TABLET PO SCH (09:09)
[2018-01-04] MEDS: PALIPERIDONE 3 MG ER TABLET PO SCH ×2 (09:09→16:31)
[2018-01-04] MEDS: OMEPRAZOLE 20 MG CAPSULE PO SCH (09:09)
[2018-01-04] MEDS: MULTIVITAMINS, THERAPEUTIC TABLET PO SCH (09:10)
[2018-01-04] MEDS: LITHIUM CARBONATE 300 MG ER TABLET PO SCH ×4 (09:11→16:32)
[2018-01-04] MEDS: FLUoxetine HCL 20 MG CAPSULE PO SCH (09:12)
[2018-01-04] MEDS: TERBINAFINE HCL 1% 30 GM CREAM TP SCH ×2 (09:13→16:36)
[2018-01-04 11:17] LABS: GLUCOMETER DEV NAME(LOC) 3EX 1; GLUCOSE,POINT OF CARE 79 MG/DL (70-110)
[2018-01-04 18:39] VITALS: BP 125/77
[2018-01-05 00:30] VITALS: BP 116/65
[2018-01-05 06:16] LABS: BASOPHILS % (AUTO) 0.5 % (0.0-2.0); EOSINOPHILS % (AUTO) 4.7 % (1.0-6.0); HEMATOCRIT 35.5 % (41-53); HEMOGLOBIN 12.3 g/dL (13.5-17.5); LYMPHOCYTES % (AUTO) 19.8 % (22.0-44.0); MEAN CORPUSCULAR HEMOGLOBIN 30.4 pg (26.0-34.0); MEAN CORPUSCULAR HGB CONC 34.6 G/dL (31.0-37.0); MEAN CORPUSCULAR VOLUME 88 fL (80-100); MONOCYTES % (AUTO) 10.1 % (2.0-9.0); NEUTROPHILS # (AUTO) 6.7 K/uL (1.8-7.7); NEUTROPHILS % (AUTO) 64.9 % (40.0-70.0); PLATELET COUNT (AUTO) 296 K/uL (150-450); RED BLOOD CELL COUNT(AUTO) 4.04 MIL/uL (4.50-5.90); RED CELL DISTRIBUTION WIDTH 15.4 % (11.5-14.5)
[2018-01-05] MEDS: MetFORMIN HCL 500 MG TABLET PO SCH (07:12)
[2018-01-05 08:30] VITALS: BP 141/86
[2018-01-05] MEDS: TRIHEXYPHENIDYL HCL 5 MG TABLET PO SCH ×3 (09:30→16:42)
[2018-01-05] MEDS: FLUoxetine HCL 20 MG CAPSULE PO SCH (09:30)
[2018-01-05] MEDS: PALIPERIDONE 3 MG ER TABLET PO SCH ×2 (09:30→16:42)
[2018-01-05] MEDS: AmLODIPine BESYLATE 5 MG TABLET PO SCH (09:31)
[2018-01-05] MEDS: DOCUSATE SODIUM 100 MG CAPSULE PO SCH ×2 (09:31→16:42)
[2018-01-05] MEDS: HALOPERIDOL 10 MG TABLET PO SCH ×2 (09:31→16:42)
[2018-01-05] MEDS: OMEPRAZOLE 20 MG CAPSULE PO SCH (09:31)
[2018-01-05] MEDS: ASPIRIN 81 MG CHEWABLE TABLET PO SCH (09:31)
[2018-01-05] MEDS: MULTIVITAMINS, THERAPEUTIC TABLET PO SCH (09:31)
[2018-01-05] MEDS: LITHIUM CARBONATE 300 MG ER TABLET PO SCH ×3 (09:31→16:42)
[2018-01-05] MEDS: TERBINAFINE HCL 1% 30 GM CREAM TP SCH ×2 (09:38→16:43)
[2018-01-05 17:00] VITALS: BP 105/62
[2018-01-06 00:20] VITALS: BP 110/70
[2018-01-06] MEDS: MetFORMIN HCL 500 MG TABLET PO SCH (07:07)
[2018-01-06] MEDS: MULTIVITAMINS, THERAPEUTIC TABLET PO SCH (08:48)
[2018-01-06] MEDS: ASPIRIN 81 MG CHEWABLE TABLET PO SCH (08:48)
[2018-01-06] MEDS: AmLODIPine BESYLATE 5 MG TABLET PO SCH (08:48)
[2018-01-06] MEDS: OMEPRAZOLE 20 MG CAPSULE PO SCH (08:48)
[2018-01-06] MEDS: HALOPERIDOL 10 MG TABLET PO SCH ×2 (08:49→16:31)
[2018-01-06] MEDS: TRIHEXYPHENIDYL HCL 5 MG TABLET PO SCH ×3 (08:49→16:31)
[2018-01-06] MEDS: FLUoxetine HCL 20 MG CAPSULE PO SCH (08:49)
[2018-01-06] MEDS: LITHIUM CARBONATE 300 MG ER TABLET PO SCH ×3 (08:49→16:31)
[2018-01-06] MEDS: PALIPERIDONE 3 MG ER TABLET PO SCH ×2 (08:49→16:31)
[2018-01-06] MEDS: DOCUSATE SODIUM 100 MG CAPSULE PO SCH ×2 (08:53→16:37)
[2018-01-06] MEDS: TERBINAFINE HCL 1% 30 GM CREAM TP SCH ×2 (08:53→17:00)
[2018-01-06 09:41] VITALS: BP 120/73
[2018-01-06 17:21] VITALS: BP 120/72
[2018-01-07 01:50] VITALS: BP 122/75
[2018-01-07] MEDS: MetFORMIN HCL 500 MG TABLET PO SCH (06:30)
[2018-01-07] MEDS: HALOPERIDOL 10 MG TABLET PO SCH ×2 (09:23→16:05)
[2018-01-07] MEDS: DOCUSATE SODIUM 100 MG CAPSULE PO SCH ×2 (09:23→16:06)
[2018-01-07] MEDS: AmLODIPine BESYLATE 5 MG TABLET PO SCH (09:23)
[2018-01-07] MEDS: TRIHEXYPHENIDYL HCL 5 MG TABLET PO SCH ×3 (09:23→16:06)
[2018-01-07] MEDS: FLUoxetine HCL 20 MG CAPSULE PO SCH (09:23)
[2018-01-07] MEDS: MULTIVITAMINS, THERAPEUTIC TABLET PO SCH (09:23)
[2018-01-07] MEDS: OMEPRAZOLE 20 MG CAPSULE PO SCH (09:23)
[2018-01-07] MEDS: PALIPERIDONE 3 MG ER TABLET PO SCH ×2 (09:23→16:06)
[2018-01-07] MEDS: LITHIUM CARBONATE 300 MG ER TABLET PO SCH ×3 (09:23→16:05)
[2018-01-07] MEDS: ASPIRIN 81 MG CHEWABLE TABLET PO SCH (09:23)
[2018-01-07] MEDS: TERBINAFINE HCL 1% 30 GM CREAM TP SCH ×2 (10:15→16:07)
[2018-01-07 11:33] VITALS: BP 127/70
[2018-01-07 17:21] VITALS: BP 120/76
[2018-01-08] MEDS: MetFORMIN HCL 500 MG TABLET PO SCH (07:00)
[2018-01-08 07:06] VITALS: BP 121/73
[2018-01-08 08:00] VITALS: BP 123/66
[2018-01-08] MEDS: HALOPERIDOL 10 MG TABLET PO SCH ×2 (08:47→16:29)
[2018-01-08] MEDS: ASPIRIN 81 MG CHEWABLE TABLET PO SCH (08:47)
[2018-01-08] MEDS: TRIHEXYPHENIDYL HCL 5 MG TABLET PO SCH ×3 (08:47→16:29)
[2018-01-08] MEDS: LITHIUM CARBONATE 300 MG ER TABLET PO SCH ×3 (08:47→16:29)
[2018-01-08] MEDS: DOCUSATE SODIUM 100 MG CAPSULE PO SCH ×2 (08:47→16:29)
[2018-01-08] MEDS: PALIPERIDONE 3 MG ER TABLET PO SCH ×2 (08:47→16:29)
[2018-01-08] MEDS: MULTIVITAMINS, THERAPEUTIC TABLET PO SCH (08:47)
[2018-01-08] MEDS: FLUoxetine HCL 20 MG CAPSULE PO SCH (08:48)
[2018-01-08] MEDS: OMEPRAZOLE 20 MG CAPSULE PO SCH (08:48)
[2018-01-08] MEDS: AmLODIPine BESYLATE 5 MG TABLET PO SCH (08:48)
[2018-01-08] MEDS: TERBINAFINE HCL 1% 30 GM CREAM TP SCH ×2 (09:00→16:29)
[2018-01-08 17:06] VITALS: BP 129/64
[2018-01-08 22:52] VITALS: BP 130/83
[2018-01-09 06:13] VITALS: BP 107/65
[2018-01-09] MEDS: MetFORMIN HCL 500 MG TABLET PO SCH (06:37)
[2018-01-09] MEDS ORDERED: RINGERS SOLUTION,LACTATED 1,000 ML IV ONE ×2 (07:31→08:00)
[2018-01-09] MEDS ORDERED: BACITRACIN 50,000 UNITS/VIAL ONE (08:27)
[2018-01-09] MEDS ORDERED: SODIUM CHLORIDE 0.9% 0 ML ONE (08:27)
[2018-01-09] MEDS ORDERED: BUPIVACAINE HCL/PF 0.5% 30 ML VIAL ONE (08:28)
[2018-01-09] MEDS ORDERED: HYDROmorphone 2 MG/ML SYRINGE IVP PRN (08:30)
[2018-01-09] MEDS ORDERED: FentaNYL CITRATE-PF 100 MCG/2 ML VIAL IVP PRN (08:30)
[2018-01-09 08:43] LABS: GLUCOMETER DEV NAME(LOC) SDS 5; GLUCOSE,POINT OF CARE 134 MG/DL (70-110)
[2018-01-09] MEDS ORDERED: MULTIVITAMINS WITH IRON TABLET PO SCH (09:45)
[2018-01-09] MEDS ORDERED: DOCUSATE SODIUM 100 MG CAPSULE PO SCH (09:45)
[2018-01-09] MEDS ORDERED: LITHIUM CARBONATE 300 MG TABLET PO SCH ×2 (09:45→17:00)
[2018-01-09] MEDS ORDERED: FLUoxetine HCL 20 MG CAPSULE PO SCH (09:45)
[2018-01-09] MEDS: TRIHEXYPHENIDYL HCL 5 MG TABLET PO SCH ×3 (10:22→16:04)
[2018-01-09] MEDS: LITHIUM CARBONATE 300 MG ER TABLET PO SCH ×3 (10:22→16:04)
[2018-01-09] MEDS: DOCUSATE SODIUM 100 MG CAPSULE PO SCH ×2 (10:22→16:05)
[2018-01-09] MEDS: ASPIRIN 81 MG CHEWABLE TABLET PO SCH (10:22)
[2018-01-09] MEDS: MULTIVITAMINS, THERAPEUTIC TABLET PO SCH (10:22)
[2018-01-09] MEDS: FLUoxetine HCL 20 MG CAPSULE PO SCH (10:23)
[2018-01-09] MEDS: HALOPERIDOL 10 MG TABLET PO SCH ×2 (10:24→16:04)
[2018-01-09] MEDS: PALIPERIDONE 3 MG ER TABLET PO SCH ×2 (10:24→16:04)
[2018-01-09] MEDS: OMEPRAZOLE 20 MG CAPSULE PO SCH (10:24)
[2018-01-09] MEDS: TERBINAFINE HCL 1% 30 GM CREAM TP SCH ×2 (10:25→16:04)
[2018-01-09] MEDS: AmLODIPine BESYLATE 5 MG TABLET PO SCH (10:26)
[2018-01-09] MEDS: SULFAMETHOX/TRIMETH DS 800-160 MG/TABLET PO SCH ×2 (10:33→16:10)
[2018-01-09 12:38] VITALS: BP 131/81
[2018-01-09] MEDS ORDERED: TRIHEXYPHENIDYL HCL 2 MG TABLET PO SCH ×2 (13:00)
[2018-01-09] MEDS ORDERED: HALOPERIDOL 5 MG TABLET PO SCH ×2 (13:00)
[2018-01-09 14:42] LABS: GLUCOMETER DEV NAME(LOC) 3EI B; GLUCOSE,POINT OF CARE 126 MG/DL (70-110)
[2018-01-09] MEDS: ACETAMINOPHEN 325 MG TABLET PO PRN ×2 (16:03→22:14)
[2018-01-09 16:06] VITALS: BP 132/68
[2018-01-09] MEDS ORDERED: OXYGEN THERAPY IH SCH (20:00)
[2018-01-09] MEDS: QUEtiapine FUMARATE 100 MG TABLET PO SCH (20:12)
[2018-01-10] MEDS ORDERED: MIDAZOLAM HCL 2 MG/2 ML VIAL IVP ONE (04:47)
[2018-01-10] MEDS ORDERED: ESMOLOL HCL 10 MG/ML 10 ML VIAL IVP ONE (04:47)
[2018-01-10] MEDS ORDERED: PROPOFOL 1% 20 ML VIAL IVP ONE (04:47)
[2018-01-10] MEDS ORDERED: KETAMINE HCL 50 MG/ML 10 ML VIAL IVP ONE (04:47)
[2018-01-10] MEDS ORDERED: FentaNYL CITRATE-PF 100 MCG/2 ML VIAL IVP ONE (04:47)
[2018-01-10] MEDS ORDERED: LIDOCAINE HCL/PF 2% 5 ML VIAL IM ONE (04:47)
[2018-01-10 06:47] VITALS: BP 122/69
[2018-01-10 06:48] LABS: ANION GAP 7 mmol/L (8-16); BASOPHILS % (AUTO) 0.5 % (0.0-2.0); CALCIUM, TOTAL 8.8 mg/dL (8.8-10.5); CARBON DIOXIDE 27 mmol/L (22-29); CHLORIDE 102 mmol/L (98-107); CREATININE 0.97 mg/dL (0.60-1.30); EOSINOPHILS % (AUTO) 1.4 % (1.0-6.0); GLOMERULAR FILTR. RATE CALC > 60 mL/min (>60); GLUCOSE,RANDOM 114 mg/dL (70-110); HEMATOCRIT 35.8 % (41-53); HEMOGLOBIN 12.1 g/dL (13.5-17.5); LYMPHOCYTES # (AUTO) 1.2 K/uL (1.0-4.8); LYMPHOCYTES % (AUTO) 11.9 % (22.0-44.0); MEAN CORPUSCULAR HEMOGLOBIN 29.7 pg (26.0-34.0); MEAN CORPUSCULAR HGB CONC 33.8 G/dL (31.0-37.0); MEAN CORPUSCULAR VOLUME 88 fL (80-100); MONOCYTES % (AUTO) 19.1 % (2.0-9.0); NEUTROPHILS % (AUTO) 67.1 % (40.0-70.0); PLATELET COUNT (AUTO) 277 K/uL (150-450); POTASSIUM 4.2 mmol/L (3.5-5.1); RED BLOOD CELL COUNT(AUTO) 4.08 MIL/uL (4.50-5.90); RED CELL DISTRIBUTION WIDTH 15.7 % (11.5-14.5); SODIUM SERUM 136 mmol/L (136-145); UREA NITROGEN, BLOOD 12 mg/dL (7-18)
[2018-01-10] MEDS: MetFORMIN HCL 500 MG TABLET PO SCH (07:10)
[2018-01-10] MEDS ORDERED: ASPIRIN 81 MG CHEWABLE TABLET PO SCH (09:00)
[2018-01-10] MEDS: HALOPERIDOL 10 MG TABLET PO SCH ×2 (09:16→16:33)
[2018-01-10] MEDS: PALIPERIDONE 3 MG ER TABLET PO SCH ×2 (09:16→16:33)
[2018-01-10] MEDS: OMEPRAZOLE 20 MG CAPSULE PO SCH (09:16)
[2018-01-10] MEDS: DOCUSATE SODIUM 100 MG CAPSULE PO SCH ×2 (09:16→16:33)
[2018-01-10] MEDS: TRIHEXYPHENIDYL HCL 5 MG TABLET PO SCH ×3 (09:17→16:33)
[2018-01-10] MEDS: MULTIVITAMINS, THERAPEUTIC TABLET PO SCH (09:17)
[2018-01-10] MEDS: SULFAMETHOX/TRIMETH DS 800-160 MG/TABLET PO SCH ×2 (09:17→16:33)
[2018-01-10] MEDS: FLUoxetine HCL 20 MG CAPSULE PO SCH (09:17)
[2018-01-10] MEDS: AmLODIPine BESYLATE 5 MG TABLET PO SCH (09:17)
[2018-01-10] MEDS: ASPIRIN 81 MG CHEWABLE TABLET PO SCH (09:17)
[2018-01-10 09:23] VITALS: BP 106/66
[2018-01-10] MEDS: TERBINAFINE HCL 1% 30 GM CREAM TP SCH ×2 (10:03→16:38)
[2018-01-10] MEDS: LITHIUM CARBONATE 300 MG ER TABLET PO SCH ×3 (10:41→16:33)
[2018-01-10 16:34] VITALS: BP 114/61
[2018-01-10] MEDS: ACETAMINOPHEN 325 MG TABLET PO PRN (16:34)
[2018-01-10] MEDS: QUEtiapine FUMARATE 100 MG TABLET PO SCH (20:54)
[2018-01-11] MEDS: MetFORMIN HCL 500 MG TABLET PO SCH (06:56)
[2018-01-11 07:17] VITALS: BP 115/65
[2018-01-11 08:05] VITALS: BP 122/70
[2018-01-11] MEDS: TRIHEXYPHENIDYL HCL 5 MG TABLET PO SCH ×3 (09:00→16:12)
[2018-01-11] MEDS: DOCUSATE SODIUM 100 MG CAPSULE PO SCH ×2 (10:05→16:13)
[2018-01-11] MEDS: AmLODIPine BESYLATE 5 MG TABLET PO SCH (10:06)
[2018-01-11] MEDS: ASPIRIN 81 MG CHEWABLE TABLET PO SCH (10:07)
[2018-01-11] MEDS: PALIPERIDONE 3 MG ER TABLET PO SCH ×2 (10:08→16:10)
[2018-01-11] MEDS: FLUoxetine HCL 20 MG CAPSULE PO SCH (10:08)
[2018-01-11] MEDS: SULFAMETHOX/TRIMETH DS 800-160 MG/TABLET PO SCH ×2 (10:08→16:11)
[2018-01-11] MEDS: HALOPERIDOL 10 MG TABLET PO SCH ×2 (10:08→16:11)
[2018-01-11] MEDS: LITHIUM CARBONATE 300 MG ER TABLET PO SCH ×3 (10:08→16:11)
[2018-01-11] MEDS: MULTIVITAMINS, THERAPEUTIC TABLET PO SCH (10:09)
[2018-01-11] MEDS: OMEPRAZOLE 20 MG CAPSULE PO SCH (10:21)
[2018-01-11] MEDS: TERBINAFINE HCL 1% 30 GM CREAM TP SCH ×2 (10:21→16:12)
[2018-01-11] MEDS: NEOMYCIN/BACITRACIN/POLYMYXIN B 30 GM OINTMENT TP SCH (10:22)
[2018-01-11 17:27] VITALS: BP 108/68
[2018-01-11] MEDS: QUEtiapine FUMARATE 100 MG TABLET PO SCH (20:09)
[2018-01-12] MEDS: MetFORMIN HCL 500 MG TABLET PO SCH (06:57)
[2018-01-12 08:53] VITALS: BP 108/65
[2018-01-12] MEDS: TERBINAFINE HCL 1% 30 GM CREAM TP SCH ×2 (09:00→17:00)
[2018-01-12] MEDS: TRIHEXYPHENIDYL HCL 5 MG TABLET PO SCH ×3 (09:22→16:18)
[2018-01-12] MEDS: MULTIVITAMINS, THERAPEUTIC TABLET PO SCH (09:22)
[2018-01-12] MEDS: SULFAMETHOX/TRIMETH DS 800-160 MG/TABLET PO SCH ×2 (09:23→16:18)
[2018-01-12] MEDS: OMEPRAZOLE 20 MG CAPSULE PO SCH (09:23)
[2018-01-12] MEDS: DOCUSATE SODIUM 100 MG CAPSULE PO SCH ×2 (09:23→16:21)
[2018-01-12] MEDS: ASPIRIN 81 MG CHEWABLE TABLET PO SCH (09:23)
[2018-01-12] MEDS: LITHIUM CARBONATE 300 MG ER TABLET PO SCH ×3 (09:24→16:18)
[2018-01-12] MEDS: PALIPERIDONE 3 MG ER TABLET PO SCH ×2 (09:24→16:18)
[2018-01-12] MEDS: HALOPERIDOL 10 MG TABLET PO SCH ×2 (09:24→16:18)
[2018-01-12] MEDS: FLUoxetine HCL 20 MG CAPSULE PO SCH (09:25)
[2018-01-12] MEDS: AmLODIPine BESYLATE 5 MG TABLET PO SCH (09:25)
[2018-01-12] MEDS: NEOMYCIN/BACITRACIN/POLYMYXIN B 30 GM OINTMENT TP SCH (11:36)
[2018-01-12 17:05] VITALS: BP 103/59
[2018-01-12] MEDS: QUEtiapine FUMARATE 100 MG TABLET PO SCH (20:27)
[2018-01-13] MEDS: MetFORMIN HCL 500 MG TABLET PO SCH (07:05)
[2018-01-13] MEDS: PALIPERIDONE 3 MG ER TABLET PO SCH ×2 (08:40→16:22)
[2018-01-13] MEDS: TRIHEXYPHENIDYL HCL 5 MG TABLET PO SCH ×3 (08:40→16:22)
[2018-01-13] MEDS: OMEPRAZOLE 20 MG CAPSULE PO SCH (08:40)
[2018-01-13] MEDS: DOCUSATE SODIUM 100 MG CAPSULE PO SCH ×2 (08:41→16:46)
[2018-01-13] MEDS: LITHIUM CARBONATE 300 MG ER TABLET PO SCH ×3 (08:41→16:22)
[2018-01-13] MEDS: FLUoxetine HCL 20 MG CAPSULE PO SCH (08:41)
[2018-01-13] MEDS: HALOPERIDOL 10 MG TABLET PO SCH ×2 (08:41→16:22)
[2018-01-13] MEDS: ASPIRIN 81 MG CHEWABLE TABLET PO SCH (08:41)
[2018-01-13] MEDS: SULFAMETHOX/TRIMETH DS 800-160 MG/TABLET PO SCH ×2 (08:41→16:22)
[2018-01-13] MEDS: MULTIVITAMINS, THERAPEUTIC TABLET PO SCH (08:41)
[2018-01-13] MEDS: AmLODIPine BESYLATE 5 MG TABLET PO SCH (08:48)
[2018-01-13 09:00] VITALS: BP 105/66
[2018-01-13] MEDS: NEOMYCIN/BACITRACIN/POLYMYXIN B 30 GM OINTMENT TP SCH (09:00)
[2018-01-13] MEDS: TERBINAFINE HCL 1% 30 GM CREAM TP SCH ×2 (09:00→17:00)
[2018-01-13 18:43] VITALS: BP 115/58
[2018-01-13] MEDS: QUEtiapine FUMARATE 100 MG TABLET PO SCH (20:31)
[2018-01-14 06:09] VITALS: BP 97/60
[2018-01-14] MEDS: MetFORMIN HCL 500 MG TABLET PO SCH (06:40)
[2018-01-14] MEDS: OMEPRAZOLE 20 MG CAPSULE PO SCH (09:04)
[2018-01-14] MEDS: FLUoxetine HCL 20 MG CAPSULE PO SCH (09:04)
[2018-01-14] MEDS: MULTIVITAMINS, THERAPEUTIC TABLET PO SCH (09:04)
[2018-01-14] MEDS: DOCUSATE SODIUM 100 MG CAPSULE PO SCH ×2 (09:04→16:09)
[2018-01-14] MEDS: TRIHEXYPHENIDYL HCL 5 MG TABLET PO SCH ×3 (09:04→16:09)
[2018-01-14] MEDS: ASPIRIN 81 MG CHEWABLE TABLET PO SCH (09:04)
[2018-01-14] MEDS: PALIPERIDONE 3 MG ER TABLET PO SCH ×2 (09:04→16:09)
[2018-01-14] MEDS: SULFAMETHOX/TRIMETH DS 800-160 MG/TABLET PO SCH ×2 (09:04→16:09)
[2018-01-14] MEDS: LITHIUM CARBONATE 300 MG ER TABLET PO SCH ×3 (09:05→16:09)
[2018-01-14] MEDS: HALOPERIDOL 10 MG TABLET PO SCH ×2 (09:05→16:09)
[2018-01-14] MEDS: AmLODIPine BESYLATE 5 MG TABLET PO SCH (09:06)
[2018-01-14 09:49] VITALS: BP 107/67
[2018-01-14] MEDS: NEOMYCIN/BACITRACIN/POLYMYXIN B 30 GM OINTMENT TP SCH (12:42)
[2018-01-14] MEDS: TERBINAFINE HCL 1% 30 GM CREAM TP SCH ×2 (12:43→17:41)
[2018-01-14 16:23] LABS: GLUCOMETER DEV NAME(LOC) 3EX 1; GLUCOSE,POINT OF CARE 129 MG/DL (70-110)
[2018-01-14 19:39] VITALS: BP 103/64
[2018-01-14] MEDS: QUEtiapine FUMARATE 100 MG TABLET PO SCH (20:08)
[2018-01-15] MEDS: MetFORMIN HCL 500 MG TABLET PO SCH (06:42)
[2018-01-15] MEDS: LITHIUM CARBONATE 300 MG ER TABLET PO SCH ×3 (08:14→16:28)
[2018-01-15] MEDS: ASPIRIN 81 MG CHEWABLE TABLET PO SCH (08:14)
[2018-01-15] MEDS: FLUoxetine HCL 20 MG CAPSULE PO SCH (08:14)
[2018-01-15] MEDS: PALIPERIDONE 3 MG ER TABLET PO SCH ×2 (08:14→16:28)
[2018-01-15] MEDS: AmLODIPine BESYLATE 5 MG TABLET PO SCH (08:14)
[2018-01-15] MEDS: OMEPRAZOLE 20 MG CAPSULE PO SCH (08:14)
[2018-01-15] MEDS: SULFAMETHOX/TRIMETH DS 800-160 MG/TABLET PO SCH ×2 (08:14→16:28)
[2018-01-15] MEDS: HALOPERIDOL 10 MG TABLET PO SCH ×2 (08:14→16:28)
[2018-01-15] MEDS: MULTIVITAMINS, THERAPEUTIC TABLET PO SCH (08:14)
[2018-01-15] MEDS: TRIHEXYPHENIDYL HCL 5 MG TABLET PO SCH ×3 (08:14→16:28)
[2018-01-15] MEDS: TERBINAFINE HCL 1% 30 GM CREAM TP SCH ×2 (08:15→16:39)
[2018-01-15] MEDS: DOCUSATE SODIUM 100 MG CAPSULE PO SCH ×2 (08:15→16:28)
[2018-01-15] MEDS: NEOMYCIN/BACITRACIN/POLYMYXIN B 30 GM OINTMENT TP SCH (08:16)
[2018-01-15 10:18] VITALS: BP 110/60
[2018-01-15 17:04] VITALS: BP 104/66
[2018-01-15] MEDS: QUEtiapine FUMARATE 100 MG TABLET PO SCH (20:08)
[2018-01-16] MEDS: MetFORMIN HCL 500 MG TABLET PO SCH (07:03)
[2018-01-16] MEDS: FLUoxetine HCL 20 MG CAPSULE PO SCH (08:09)
[2018-01-16] MEDS: SULFAMETHOX/TRIMETH DS 800-160 MG/TABLET PO SCH ×2 (08:09→16:04)
[2018-01-16] MEDS: TRIHEXYPHENIDYL HCL 5 MG TABLET PO SCH ×3 (08:09→16:04)
[2018-01-16] MEDS: MULTIVITAMINS, THERAPEUTIC TABLET PO SCH (08:09)
[2018-01-16] MEDS: AmLODIPine BESYLATE 5 MG TABLET PO SCH (08:09)
[2018-01-16] MEDS: DOCUSATE SODIUM 100 MG CAPSULE PO SCH ×2 (08:09→16:04)
[2018-01-16] MEDS: ASPIRIN 81 MG CHEWABLE TABLET PO SCH (08:09)
[2018-01-16] MEDS: HALOPERIDOL 10 MG TABLET PO SCH ×2 (08:09→16:04)
[2018-01-16] MEDS: OMEPRAZOLE 20 MG CAPSULE PO SCH (08:10)
[2018-01-16] MEDS: TERBINAFINE HCL 1% 30 GM CREAM TP SCH ×2 (08:10→16:05)
[2018-01-16] MEDS: PALIPERIDONE 3 MG ER TABLET PO SCH ×2 (08:10→16:04)
[2018-01-16] MEDS: LITHIUM CARBONATE 300 MG ER TABLET PO SCH ×3 (08:10→16:04)
[2018-01-16] MEDS: NEOMYCIN/BACITRACIN/POLYMYXIN B 30 GM OINTMENT TP SCH (08:10)
[2018-01-16 08:26] VITALS: BP 125/64
[2018-01-16 16:14] VITALS: BP 102/61
[2018-01-16] MEDS: QUEtiapine FUMARATE 100 MG TABLET PO SCH (20:18)
[2018-01-17] MEDS: MetFORMIN HCL 500 MG TABLET PO SCH (07:14)
[2018-01-17 08:05] VITALS: BP 113/67
[2018-01-17] MEDS: MULTIVITAMINS, THERAPEUTIC TABLET PO SCH (08:05)
[2018-01-17] MEDS: LITHIUM CARBONATE 300 MG ER TABLET PO SCH ×3 (08:05→16:38)
[2018-01-17] MEDS: PALIPERIDONE 3 MG ER TABLET PO SCH ×2 (08:05→16:38)
[2018-01-17] MEDS: TRIHEXYPHENIDYL HCL 5 MG TABLET PO SCH ×3 (08:05→16:38)
[2018-01-17] MEDS: SULFAMETHOX/TRIMETH DS 800-160 MG/TABLET PO SCH ×2 (08:05→16:38)
[2018-01-17] MEDS: OMEPRAZOLE 20 MG CAPSULE PO SCH (08:06)
[2018-01-17] MEDS: AmLODIPine BESYLATE 5 MG TABLET PO SCH (08:06)
[2018-01-17] MEDS: HALOPERIDOL 10 MG TABLET PO SCH ×2 (08:06→16:38)
[2018-01-17] MEDS: ASPIRIN 81 MG CHEWABLE TABLET PO SCH (08:06)
[2018-01-17] MEDS: DOCUSATE SODIUM 100 MG CAPSULE PO SCH ×2 (08:06→16:38)
[2018-01-17] MEDS: FLUoxetine HCL 20 MG CAPSULE PO SCH (08:06)
[2018-01-17] MEDS: NEOMYCIN/BACITRACIN/POLYMYXIN B 30 GM OINTMENT TP SCH (11:23)
[2018-01-17] MEDS: TERBINAFINE HCL 1% 30 GM CREAM TP SCH ×2 (11:23→16:39)
[2018-01-17 16:06] VITALS: BP 105/62
[2018-01-17] MEDS: QUEtiapine FUMARATE 100 MG TABLET PO SCH (20:23)
[2018-01-18 03:44] VITALS: BP 116/68
[2018-01-18] MEDS: MetFORMIN HCL 500 MG TABLET PO SCH (06:55)
[2018-01-18 08:05] VITALS: BP 107/62
[2018-01-18] MEDS: PALIPERIDONE 3 MG ER TABLET PO SCH ×2 (08:21→15:57)
[2018-01-18] MEDS: FLUoxetine HCL 20 MG CAPSULE PO SCH (08:21)
[2018-01-18] MEDS: ASPIRIN 81 MG CHEWABLE TABLET PO SCH (08:21)
[2018-01-18] MEDS: MULTIVITAMINS, THERAPEUTIC TABLET PO SCH (08:21)
[2018-01-18] MEDS: TRIHEXYPHENIDYL HCL 5 MG TABLET PO SCH ×3 (08:21→15:57)
[2018-01-18] MEDS: HALOPERIDOL 10 MG TABLET PO SCH ×2 (08:22→15:57)
[2018-01-18] MEDS: DOCUSATE SODIUM 100 MG CAPSULE PO SCH ×2 (08:22→15:58)
[2018-01-18] MEDS: LITHIUM CARBONATE 300 MG ER TABLET PO SCH ×3 (08:22→15:57)
[2018-01-18] MEDS: SULFAMETHOX/TRIMETH DS 800-160 MG/TABLET PO SCH ×2 (08:22→15:57)
[2018-01-18] MEDS: AmLODIPine BESYLATE 5 MG TABLET PO SCH (08:22)
[2018-01-18] MEDS: OMEPRAZOLE 20 MG CAPSULE PO SCH (08:22)
[2018-01-18] MEDS: TERBINAFINE HCL 1% 30 GM CREAM TP SCH ×2 (12:54→15:58)
[2018-01-18] MEDS: NEOMYCIN/BACITRACIN/POLYMYXIN B 30 GM OINTMENT TP SCH (12:55)
[2018-01-18 16:22] VITALS: BP 118/79
[2018-01-18] MEDS: QUEtiapine FUMARATE 100 MG TABLET PO SCH (20:20)
[2018-01-19 03:47] VITALS: BP 111/64
[2018-01-19] MEDS: MetFORMIN HCL 500 MG TABLET PO SCH (06:50)
[2018-01-19] MEDS: MULTIVITAMINS, THERAPEUTIC TABLET PO SCH (08:41)
[2018-01-19] MEDS: ASPIRIN 81 MG CHEWABLE TABLET PO SCH (08:41)
[2018-01-19] MEDS: TRIHEXYPHENIDYL HCL 5 MG TABLET PO SCH ×3 (08:41→16:18)
[2018-01-19] MEDS: SULFAMETHOX/TRIMETH DS 800-160 MG/TABLET PO SCH ×2 (08:42→16:18)
[2018-01-19] MEDS: HALOPERIDOL 10 MG TABLET PO SCH ×2 (08:42→16:18)
[2018-01-19] MEDS: DOCUSATE SODIUM 100 MG CAPSULE PO SCH ×2 (08:42→16:18)
[2018-01-19] MEDS: LITHIUM CARBONATE 300 MG ER TABLET PO SCH ×3 (08:42→16:18)
[2018-01-19] MEDS: PALIPERIDONE 3 MG ER TABLET PO SCH ×2 (08:42→16:18)
[2018-01-19] MEDS: OMEPRAZOLE 20 MG CAPSULE PO SCH (08:43)
[2018-01-19] MEDS: FLUoxetine HCL 20 MG CAPSULE PO SCH (08:43)
[2018-01-19] MEDS: AmLODIPine BESYLATE 5 MG TABLET PO SCH (08:43)
[2018-01-19] MEDS: TERBINAFINE HCL 1% 30 GM CREAM TP SCH ×2 (08:47→16:19)
[2018-01-19 09:21] VITALS: BP 106/70
[2018-01-19] MEDS: NEOMYCIN/BACITRACIN/POLYMYXIN B 30 GM OINTMENT TP SCH (10:08)
[2018-01-19 16:26] VITALS: BP 99/66
[2018-01-19] MEDS: QUEtiapine FUMARATE 100 MG TABLET PO SCH (20:15)
[2018-01-20] MEDS: MetFORMIN HCL 500 MG TABLET PO SCH (06:53)
[2018-01-20] MEDS: ASPIRIN 81 MG CHEWABLE TABLET PO SCH (08:29)
[2018-01-20] MEDS: LITHIUM CARBONATE 300 MG ER TABLET PO SCH ×3 (08:29→16:01)
[2018-01-20] MEDS: DOCUSATE SODIUM 100 MG CAPSULE PO SCH ×2 (08:29→16:01)
[2018-01-20] MEDS: TRIHEXYPHENIDYL HCL 5 MG TABLET PO SCH ×3 (08:29→16:01)
[2018-01-20] MEDS: MULTIVITAMINS, THERAPEUTIC TABLET PO SCH (08:29)
[2018-01-20] MEDS: HALOPERIDOL 10 MG TABLET PO SCH ×2 (08:29→16:01)
[2018-01-20] MEDS: SULFAMETHOX/TRIMETH DS 800-160 MG/TABLET PO SCH ×2 (08:29→16:01)
[2018-01-20 08:30] VITALS: BP 104/61
[2018-01-20] MEDS: PALIPERIDONE 3 MG ER TABLET PO SCH ×2 (08:30→16:01)
[2018-01-20] MEDS: OMEPRAZOLE 20 MG CAPSULE PO SCH (08:31)
[2018-01-20] MEDS: FLUoxetine HCL 20 MG CAPSULE PO SCH (08:31)
[2018-01-20] MEDS: AmLODIPine BESYLATE 5 MG TABLET PO SCH (08:31)
[2018-01-20] MEDS: TERBINAFINE HCL 1% 30 GM CREAM TP SCH ×2 (08:36→16:01)
[2018-01-20] MEDS: NEOMYCIN/BACITRACIN/POLYMYXIN B 30 GM OINTMENT TP SCH ×2 (10:00→13:00)
[2018-01-20 16:13] VITALS: BP 126/82
[2018-01-20] MEDS: QUEtiapine FUMARATE 100 MG TABLET PO SCH (20:17)
[2018-01-21] MEDS: MetFORMIN HCL 500 MG TABLET PO SCH (07:03)
[2018-01-21 08:00] VITALS: BP 108/59
[2018-01-21] MEDS: TRIHEXYPHENIDYL HCL 5 MG TABLET PO SCH ×3 (08:36→15:56)
[2018-01-21] MEDS: DOCUSATE SODIUM 100 MG CAPSULE PO SCH ×2 (08:36→15:55)
[2018-01-21] MEDS: HALOPERIDOL 10 MG TABLET PO SCH ×2 (08:37→15:55)
[2018-01-21] MEDS: SULFAMETHOX/TRIMETH DS 800-160 MG/TABLET PO SCH ×2 (08:37→15:55)
[2018-01-21] MEDS: AmLODIPine BESYLATE 5 MG TABLET PO SCH (08:37)
[2018-01-21] MEDS: MULTIVITAMINS, THERAPEUTIC TABLET PO SCH (08:37)
[2018-01-21] MEDS: ASPIRIN 81 MG CHEWABLE TABLET PO SCH (08:37)
[2018-01-21] MEDS: PALIPERIDONE 3 MG ER TABLET PO SCH ×2 (08:37→15:56)
[2018-01-21] MEDS: LITHIUM CARBONATE 300 MG ER TABLET PO SCH ×3 (08:37→15:56)
[2018-01-21] MEDS: TERBINAFINE HCL 1% 30 GM CREAM TP SCH ×2 (08:38→15:56)
[2018-01-21] MEDS: OMEPRAZOLE 20 MG CAPSULE PO SCH (08:38)
[2018-01-21] MEDS: FLUoxetine HCL 20 MG CAPSULE PO SCH (08:38)
[2018-01-21 16:21] VITALS: BP 103/62
[2018-01-21] MEDS: QUEtiapine FUMARATE 100 MG TABLET PO SCH (20:02)
[2018-01-22] MEDS: MetFORMIN HCL 500 MG TABLET PO SCH (07:33)
[2018-01-22] MEDS: ASPIRIN 81 MG CHEWABLE TABLET PO SCH (08:51)
[2018-01-22] MEDS: DOCUSATE SODIUM 100 MG CAPSULE PO SCH ×2 (08:51→15:58)
[2018-01-22] MEDS: PALIPERIDONE 3 MG ER TABLET PO SCH ×2 (08:51→15:57)
[2018-01-22] MEDS: TRIHEXYPHENIDYL HCL 5 MG TABLET PO SCH ×3 (08:51→15:57)
[2018-01-22] MEDS: SULFAMETHOX/TRIMETH DS 800-160 MG/TABLET PO SCH ×2 (08:51→15:57)
[2018-01-22] MEDS: HALOPERIDOL 10 MG TABLET PO SCH ×2 (08:51→15:58)
[2018-01-22] MEDS: LITHIUM CARBONATE 300 MG ER TABLET PO SCH ×3 (08:51→15:57)
[2018-01-22] MEDS: FLUoxetine HCL 20 MG CAPSULE PO SCH (08:52)
[2018-01-22] MEDS: OMEPRAZOLE 20 MG CAPSULE PO SCH (08:52)
[2018-01-22] MEDS: MULTIVITAMINS, THERAPEUTIC TABLET PO SCH (08:52)
[2018-01-22] MEDS: AmLODIPine BESYLATE 5 MG TABLET PO SCH (08:52)
[2018-01-22 09:45] VITALS: BP 113/73
[2018-01-22] MEDS: NEOMYCIN/BACITRACIN/POLYMYXIN B 30 GM OINTMENT TP SCH (11:01)
[2018-01-22 16:40] VITALS: BP 110/65
[2018-01-22] MEDS: QUEtiapine FUMARATE 100 MG TABLET PO SCH (20:10)
[2018-01-23] MEDS: MetFORMIN HCL 500 MG TABLET PO SCH (06:54)
[2018-01-23 08:00] VITALS: BP 120/78
[2018-01-23] MEDS: TRIHEXYPHENIDYL HCL 5 MG TABLET PO SCH ×3 (08:07→17:17)
[2018-01-23] MEDS: LITHIUM CARBONATE 300 MG ER TABLET PO SCH ×3 (08:07→17:16)
[2018-01-23] MEDS: MULTIVITAMINS, THERAPEUTIC TABLET PO SCH (08:07)
[2018-01-23] MEDS: OMEPRAZOLE 20 MG CAPSULE PO SCH (08:08)
[2018-01-23] MEDS: FLUoxetine HCL 20 MG CAPSULE PO SCH (08:08)
[2018-01-23] MEDS: PALIPERIDONE 3 MG ER TABLET PO SCH ×2 (08:08→17:16)
[2018-01-23] MEDS: HALOPERIDOL 10 MG TABLET PO SCH ×2 (08:08→17:16)
[2018-01-23] MEDS: AmLODIPine BESYLATE 5 MG TABLET PO SCH (08:08)
[2018-01-23] MEDS: DOCUSATE SODIUM 100 MG CAPSULE PO SCH ×2 (08:14→17:17)
[2018-01-23] MEDS: ASPIRIN 81 MG CHEWABLE TABLET PO SCH (08:14)
[2018-01-23] MEDS: NEOMYCIN/BACITRACIN/POLYMYXIN B 30 GM OINTMENT TP SCH (12:07)
[2018-01-23 17:00] VITALS: BP 104/67
[2018-01-23] MEDS: QUEtiapine FUMARATE 100 MG TABLET PO SCH (20:52)
[2018-01-24] MEDS: MetFORMIN HCL 500 MG TABLET PO SCH (07:12)
[2018-01-24 08:00] VITALS: BP 107/68
[2018-01-24] MEDS: OMEPRAZOLE 20 MG CAPSULE PO SCH (08:18)
[2018-01-24] MEDS: DOCUSATE SODIUM 100 MG CAPSULE PO SCH ×2 (08:18→16:28)
[2018-01-24] MEDS: ASPIRIN 81 MG CHEWABLE TABLET PO SCH (08:18)
[2018-01-24] MEDS: MULTIVITAMINS, THERAPEUTIC TABLET PO SCH (08:18)
[2018-01-24] MEDS: AmLODIPine BESYLATE 5 MG TABLET PO SCH (08:19)
[2018-01-24] MEDS: PALIPERIDONE 3 MG ER TABLET PO SCH ×2 (08:19→16:27)
[2018-01-24] MEDS: LITHIUM CARBONATE 300 MG ER TABLET PO SCH ×3 (08:19→16:27)
[2018-01-24] MEDS: HALOPERIDOL 10 MG TABLET PO SCH ×2 (08:19→16:27)
[2018-01-24] MEDS: FLUoxetine HCL 20 MG CAPSULE PO SCH (08:20)
[2018-01-24] MEDS: TRIHEXYPHENIDYL HCL 5 MG TABLET PO SCH ×3 (08:20→16:27)
[2018-01-24] MEDS: NEOMYCIN/BACITRACIN/POLYMYXIN B 30 GM OINTMENT TP SCH (11:32)
[2018-01-24 17:05] VITALS: BP 101/65
[2018-01-24] MEDS: QUEtiapine FUMARATE 100 MG TABLET PO SCH (20:33)
[2018-01-25] MEDS: MetFORMIN HCL 500 MG TABLET PO SCH (07:02)
[2018-01-25] MEDS: PALIPERIDONE 3 MG ER TABLET PO SCH ×2 (08:26→16:43)
[2018-01-25] MEDS: ASPIRIN 81 MG CHEWABLE TABLET PO SCH (08:26)
[2018-01-25] MEDS: OMEPRAZOLE 20 MG CAPSULE PO SCH (08:26)
[2018-01-25] MEDS: FLUoxetine HCL 20 MG CAPSULE PO SCH (08:26)
[2018-01-25] MEDS: MULTIVITAMINS, THERAPEUTIC TABLET PO SCH (08:26)
[2018-01-25] MEDS: TRIHEXYPHENIDYL HCL 5 MG TABLET PO SCH ×3 (08:26→16:43)
[2018-01-25] MEDS: AmLODIPine BESYLATE 5 MG TABLET PO SCH (08:26)
[2018-01-25] MEDS: DOCUSATE SODIUM 100 MG CAPSULE PO SCH ×2 (08:26→16:43)
[2018-01-25] MEDS: HALOPERIDOL 10 MG TABLET PO SCH ×2 (08:27→16:43)
[2018-01-25] MEDS: LITHIUM CARBONATE 300 MG ER TABLET PO SCH ×3 (08:28→16:43)
[2018-01-25 08:30] VITALS: BP 124/71
[2018-01-25] MEDS: NEOMYCIN/BACITRACIN/POLYMYXIN B 30 GM OINTMENT TP SCH (10:16)
[2018-01-25 16:38] VITALS: BP 116/67
[2018-01-25] MEDS: QUEtiapine FUMARATE 100 MG TABLET PO SCH (20:28)
[2018-01-26] MEDS: MetFORMIN HCL 500 MG TABLET PO SCH (06:46)
[2018-01-26 08:20] VITALS: BP 108/66
[2018-01-26] MEDS: TRIHEXYPHENIDYL HCL 5 MG TABLET PO SCH ×3 (09:14→16:17)
[2018-01-26] MEDS: MULTIVITAMINS, THERAPEUTIC TABLET PO SCH (09:14)
[2018-01-26] MEDS: AmLODIPine BESYLATE 5 MG TABLET PO SCH (09:14)
[2018-01-26] MEDS: LITHIUM CARBONATE 300 MG ER TABLET PO SCH ×3 (09:14→16:17)
[2018-01-26] MEDS: PALIPERIDONE 3 MG ER TABLET PO SCH ×2 (09:14→16:17)
[2018-01-26] MEDS: DOCUSATE SODIUM 100 MG CAPSULE PO SCH ×2 (09:14→16:17)
[2018-01-26] MEDS: FLUoxetine HCL 20 MG CAPSULE PO SCH (09:14)
[2018-01-26] MEDS: HALOPERIDOL 10 MG TABLET PO SCH ×2 (09:14→16:17)
[2018-01-26] MEDS: OMEPRAZOLE 20 MG CAPSULE PO SCH (09:14)
[2018-01-26] MEDS: ASPIRIN 81 MG CHEWABLE TABLET PO SCH (09:15)
[2018-01-26] MEDS: NEOMYCIN/BACITRACIN/POLYMYXIN B 30 GM OINTMENT TP SCH (12:11)
[2018-01-26 17:22] VITALS: BP 115/73
[2018-01-26] MEDS: QUEtiapine FUMARATE 100 MG TABLET PO SCH (20:02)
[2018-01-27] MEDS: MetFORMIN HCL 500 MG TABLET PO SCH (06:46)
[2018-01-27] MEDS: FLUoxetine HCL 20 MG CAPSULE PO SCH (08:48)
[2018-01-27] MEDS: PALIPERIDONE 3 MG ER TABLET PO SCH ×2 (08:48→16:08)
[2018-01-27] MEDS: MULTIVITAMINS, THERAPEUTIC TABLET PO SCH (08:48)
[2018-01-27] MEDS: LITHIUM CARBONATE 300 MG ER TABLET PO SCH ×3 (08:48→16:08)
[2018-01-27] MEDS: TRIHEXYPHENIDYL HCL 5 MG TABLET PO SCH ×3 (08:48→16:08)
[2018-01-27] MEDS: HALOPERIDOL 10 MG TABLET PO SCH ×2 (08:48→16:08)
[2018-01-27] MEDS: ASPIRIN 81 MG CHEWABLE TABLET PO SCH (08:51)
[2018-01-27] MEDS: DOCUSATE SODIUM 100 MG CAPSULE PO SCH ×2 (08:51→16:08)
[2018-01-27] MEDS: AmLODIPine BESYLATE 5 MG TABLET PO SCH (08:52)
[2018-01-27] MEDS: OMEPRAZOLE 20 MG CAPSULE PO SCH (08:52)
[2018-01-27 09:37] VITALS: BP 115/72
[2018-01-27] MEDS: NEOMYCIN/BACITRACIN/POLYMYXIN B 30 GM OINTMENT TP SCH (10:49)
[2018-01-27 16:59] VITALS: BP 113/75
[2018-01-27] MEDS: QUEtiapine FUMARATE 100 MG TABLET PO SCH (20:31)
[2018-01-28] MEDS: MetFORMIN HCL 500 MG TABLET PO SCH (06:47)
[2018-01-28 08:00] VITALS: BP 112/60
[2018-01-28] MEDS: PALIPERIDONE 3 MG ER TABLET PO SCH ×2 (09:02→16:17)
[2018-01-28] MEDS: LITHIUM CARBONATE 300 MG ER TABLET PO SCH ×3 (09:02→16:16)
[2018-01-28] MEDS: DOCUSATE SODIUM 100 MG CAPSULE PO SCH ×2 (09:02→16:17)
[2018-01-28] MEDS: FLUoxetine HCL 20 MG CAPSULE PO SCH (09:02)
[2018-01-28] MEDS: ASPIRIN 81 MG CHEWABLE TABLET PO SCH (09:03)
[2018-01-28] MEDS: HALOPERIDOL 10 MG TABLET PO SCH ×2 (09:03→16:17)
[2018-01-28] MEDS: OMEPRAZOLE 20 MG CAPSULE PO SCH (09:03)
[2018-01-28] MEDS: AmLODIPine BESYLATE 5 MG TABLET PO SCH (09:03)
[2018-01-28] MEDS: TRIHEXYPHENIDYL HCL 5 MG TABLET PO SCH ×3 (09:03→16:16)
[2018-01-28] MEDS: NEOMYCIN/BACITRACIN/POLYMYXIN B 30 GM OINTMENT TP SCH (09:03)
[2018-01-28] MEDS: MULTIVITAMINS, THERAPEUTIC TABLET PO SCH (09:08)
[2018-01-28 16:49] VITALS: BP 110/63
[2018-01-28] MEDS: QUEtiapine FUMARATE 100 MG TABLET PO SCH (20:34)
[2018-01-29] MEDS: MetFORMIN HCL 500 MG TABLET PO SCH (07:04)
[2018-01-29 07:08] LABS: BASOPHILS % (AUTO) 1.3 % (0.0-2.0); EOSINOPHILS % (AUTO) 5.4 % (1.0-6.0); HEMOGLOBIN 11.8 g/dL (13.5-17.5); LYMPHOCYTES # (AUTO) 2.2 K/uL (1.0-4.8); LYMPHOCYTES % (AUTO) 35.4 % (22.0-44.0); MEAN CORPUSCULAR HEMOGLOBIN 30.2 pg (26.0-34.0); MEAN CORPUSCULAR HGB CONC 34.5 G/dL (31.0-37.0); MEAN CORPUSCULAR VOLUME 87 fL (80-100); MONOCYTES # (AUTO) 1.1 K/uL (0.1-1.0); MONOCYTES % (AUTO) 17.7 % (2.0-9.0); NEUTROPHILS # (AUTO) 2.5 K/uL (1.8-7.7); NEUTROPHILS % (AUTO) 40.2 % (40.0-70.0); PLATELET COUNT (AUTO) 246 K/uL (150-450); RED BLOOD CELL COUNT(AUTO) 3.89 MIL/uL (4.50-5.90); RED CELL DISTRIBUTION WIDTH 14.8 % (11.5-14.5)
[2018-01-29 07:40] LABS: ANION GAP 5 mmol/L (8-16); CALCIUM, TOTAL 8.9 mg/dL (8.8-10.5); CARBON DIOXIDE 29 mmol/L (22-29); CHLORIDE 105 mmol/L (98-107); CREATININE 0.87 mg/dL (0.60-1.30); GLOMERULAR FILTR. RATE CALC > 60 mL/min (>60); GLUCOSE,RANDOM 103 mg/dL (70-110); POTASSIUM 4.1 mmol/L (3.5-5.1); SODIUM SERUM 139 mmol/L (136-145); UREA NITROGEN, BLOOD 11 mg/dL (7-18)
[2018-01-29 08:37] VITALS: BP 101/64
[2018-01-29] MEDS: LITHIUM CARBONATE 300 MG ER TABLET PO SCH ×3 (08:46→16:03)
[2018-01-29] MEDS: TRIHEXYPHENIDYL HCL 5 MG TABLET PO SCH ×3 (08:46→16:03)
[2018-01-29] MEDS: PALIPERIDONE 3 MG ER TABLET PO SCH ×2 (08:46→16:03)
[2018-01-29] MEDS: HALOPERIDOL 10 MG TABLET PO SCH ×2 (08:47→16:03)
[2018-01-29] MEDS: FLUoxetine HCL 20 MG CAPSULE PO SCH (08:47)
[2018-01-29] MEDS: DOCUSATE SODIUM 100 MG CAPSULE PO SCH ×2 (08:49→16:04)
[2018-01-29] MEDS: OMEPRAZOLE 20 MG CAPSULE PO SCH (08:49)
[2018-01-29] MEDS: MULTIVITAMINS, THERAPEUTIC TABLET PO SCH (08:49)
[2018-01-29] MEDS: ASPIRIN 81 MG CHEWABLE TABLET PO SCH (08:50)
[2018-01-29] MEDS: AmLODIPine BESYLATE 5 MG TABLET PO SCH (08:51)
[2018-01-29] MEDS: NEOMYCIN/BACITRACIN/POLYMYXIN B 30 GM OINTMENT TP SCH (12:40)
[2018-01-29 16:22] VITALS: BP 110/69
[2018-01-29] MEDS: QUEtiapine FUMARATE 100 MG TABLET PO SCH (20:19)
[2018-01-30 00:30] VITALS: BP 111/65
[2018-01-30] MEDS: MetFORMIN HCL 500 MG TABLET PO SCH (06:45)
[2018-01-30 08:00] VITALS: BP 120/72
[2018-01-30] MEDS: AmLODIPine BESYLATE 5 MG TABLET PO SCH (08:15)
[2018-01-30] MEDS: ASPIRIN 81 MG CHEWABLE TABLET PO SCH (08:15)
[2018-01-30] MEDS: PALIPERIDONE 3 MG ER TABLET PO SCH ×2 (08:15→16:29)
[2018-01-30] MEDS: FLUoxetine HCL 20 MG CAPSULE PO SCH (08:15)
[2018-01-30] MEDS: TRIHEXYPHENIDYL HCL 5 MG TABLET PO SCH ×3 (08:15→16:29)
[2018-01-30] MEDS: HALOPERIDOL 10 MG TABLET PO SCH ×2 (08:15→16:29)
[2018-01-30] MEDS: OMEPRAZOLE 20 MG CAPSULE PO SCH (08:15)
[2018-01-30] MEDS: LITHIUM CARBONATE 300 MG ER TABLET PO SCH ×3 (08:15→16:29)
[2018-01-30] MEDS: DOCUSATE SODIUM 100 MG CAPSULE PO SCH ×2 (08:15→16:29)
[2018-01-30] MEDS: NEOMYCIN/BACITRACIN/POLYMYXIN B 30 GM OINTMENT TP SCH (08:16)
[2018-01-30] MEDS: MULTIVITAMINS, THERAPEUTIC TABLET PO SCH (08:19)
[2018-01-30 16:33] VITALS: BP 116/72
[2018-01-30] MEDS: QUEtiapine FUMARATE 100 MG TABLET PO SCH (20:28)
[2018-01-31] MEDS: MetFORMIN HCL 500 MG TABLET PO SCH (06:32)
[2018-01-31 08:11] VITALS: BP 125/62
[2018-01-31] MEDS: TRIHEXYPHENIDYL HCL 5 MG TABLET PO SCH ×3 (08:38→16:07)
[2018-01-31] MEDS: LITHIUM CARBONATE 300 MG ER TABLET PO SCH ×3 (08:38→16:07)
[2018-01-31] MEDS: OMEPRAZOLE 20 MG CAPSULE PO SCH (08:38)
[2018-01-31] MEDS: HALOPERIDOL 10 MG TABLET PO SCH ×2 (08:38→16:07)
[2018-01-31] MEDS: MULTIVITAMINS, THERAPEUTIC TABLET PO SCH (08:38)
[2018-01-31] MEDS: PALIPERIDONE 3 MG ER TABLET PO SCH ×2 (08:38→16:07)
[2018-01-31] MEDS: ASPIRIN 81 MG CHEWABLE TABLET PO SCH (08:38)
[2018-01-31] MEDS: FLUoxetine HCL 20 MG CAPSULE PO SCH (08:38)
[2018-01-31] MEDS: DOCUSATE SODIUM 100 MG CAPSULE PO SCH ×2 (08:39→16:07)
[2018-01-31] MEDS: AmLODIPine BESYLATE 5 MG TABLET PO SCH (08:39)
[2018-01-31] MEDS: NEOMYCIN/BACITRACIN/POLYMYXIN B 30 GM OINTMENT TP SCH (12:12)
[2018-01-31 16:40] VITALS: BP 109/63
[2018-01-31] MEDS: QUEtiapine FUMARATE 100 MG TABLET PO SCH (20:02)
[2018-02-01] MEDS: MetFORMIN HCL 500 MG TABLET PO SCH (07:16)
[2018-02-01 08:00] VITALS: BP 117/72
[2018-02-01] MEDS: DOCUSATE SODIUM 100 MG CAPSULE PO SCH ×2 (09:06→15:59)
[2018-02-01] MEDS: MULTIVITAMINS, THERAPEUTIC TABLET PO SCH (09:06)
[2018-02-01] MEDS: PALIPERIDONE 3 MG ER TABLET PO SCH ×2 (09:06→15:59)
[2018-02-01] MEDS: ASPIRIN 81 MG CHEWABLE TABLET PO SCH (09:06)
[2018-02-01] MEDS: FLUoxetine HCL 20 MG CAPSULE PO SCH (09:06)
[2018-02-01] MEDS: OMEPRAZOLE 20 MG CAPSULE PO SCH (09:06)
[2018-02-01] MEDS: HALOPERIDOL 10 MG TABLET PO SCH ×2 (09:06→15:59)
[2018-02-01] MEDS: TRIHEXYPHENIDYL HCL 5 MG TABLET PO SCH ×3 (09:06→15:59)
[2018-02-01] MEDS: LITHIUM CARBONATE 300 MG ER TABLET PO SCH ×3 (09:06→16:00)
[2018-02-01] MEDS: AmLODIPine BESYLATE 5 MG TABLET PO SCH (09:07)
[2018-02-01] MEDS: NEOMYCIN/BACITRACIN/POLYMYXIN B 30 GM OINTMENT TP SCH (10:00)
[2018-02-01 17:00] VITALS: BP 108/69
[2018-02-01] MEDS: QUEtiapine FUMARATE 100 MG TABLET PO SCH (20:10)
[2018-02-02] MEDS: MetFORMIN HCL 500 MG TABLET PO SCH (07:01)
[2018-02-02] MEDS: MULTIVITAMINS, THERAPEUTIC TABLET PO SCH (09:04)
[2018-02-02] MEDS: ASPIRIN 81 MG CHEWABLE TABLET PO SCH (09:05)
[2018-02-02] MEDS: TRIHEXYPHENIDYL HCL 5 MG TABLET PO SCH ×3 (09:05→16:38)
[2018-02-02] MEDS: LITHIUM CARBONATE 300 MG ER TABLET PO SCH ×3 (09:05→16:38)
[2018-02-02] MEDS: DOCUSATE SODIUM 100 MG CAPSULE PO SCH ×2 (09:05→16:38)
[2018-02-02] MEDS: HALOPERIDOL 10 MG TABLET PO SCH ×2 (09:06→16:38)
[2018-02-02] MEDS: PALIPERIDONE 3 MG ER TABLET PO SCH ×2 (09:08→16:38)
[2018-02-02] MEDS: AmLODIPine BESYLATE 5 MG TABLET PO SCH (09:08)
[2018-02-02] MEDS: OMEPRAZOLE 20 MG CAPSULE PO SCH (09:09)
[2018-02-02] MEDS: FLUoxetine HCL 20 MG CAPSULE PO SCH (09:09)
[2018-02-02] MEDS: HALOPERIDOL DECANOATE 50 MG/ML VIAL IM SCH (09:56)
[2018-02-02 11:31] VITALS: BP 102/68
[2018-02-02 17:05] VITALS: BP 95/59
[2018-02-02] MEDS: QUEtiapine FUMARATE 100 MG TABLET PO SCH (20:10)
[2018-02-03] MEDS: MetFORMIN HCL 500 MG TABLET PO SCH (06:48)
[2018-02-03 08:05] VITALS: BP 108/68
[2018-02-03] MEDS: AmLODIPine BESYLATE 5 MG TABLET PO SCH (08:05)
[2018-02-03] MEDS: ASPIRIN 81 MG CHEWABLE TABLET PO SCH (08:05)
[2018-02-03] MEDS: FLUoxetine HCL 20 MG CAPSULE PO SCH (08:06)
[2018-02-03] MEDS: HALOPERIDOL 10 MG TABLET PO SCH ×2 (08:06→16:33)
[2018-02-03] MEDS: LITHIUM CARBONATE 300 MG ER TABLET PO SCH ×3 (08:06→16:33)
[2018-02-03] MEDS: MULTIVITAMINS, THERAPEUTIC TABLET PO SCH (08:06)
[2018-02-03] MEDS: TRIHEXYPHENIDYL HCL 5 MG TABLET PO SCH ×3 (08:06→16:33)
[2018-02-03] MEDS: OMEPRAZOLE 20 MG CAPSULE PO SCH (08:06)
[2018-02-03] MEDS: DOCUSATE SODIUM 100 MG CAPSULE PO SCH ×2 (08:06→16:33)
[2018-02-03] MEDS: PALIPERIDONE 3 MG ER TABLET PO SCH ×2 (08:06→16:33)
[2018-02-03 19:05] VITALS: BP 107/69
[2018-02-03] MEDS: QUEtiapine FUMARATE 100 MG TABLET PO SCH (20:07)
[2018-02-04] MEDS: MetFORMIN HCL 500 MG TABLET PO SCH (06:58)
[2018-02-04 08:00] VITALS: BP 105/67
[2018-02-04] MEDS: MULTIVITAMINS, THERAPEUTIC TABLET PO SCH (08:30)
[2018-02-04] MEDS: TRIHEXYPHENIDYL HCL 5 MG TABLET PO SCH ×3 (08:31→15:59)
[2018-02-04] MEDS: HALOPERIDOL 10 MG TABLET PO SCH ×2 (08:31→15:59)
[2018-02-04] MEDS: PALIPERIDONE 3 MG ER TABLET PO SCH ×2 (08:31→15:59)
[2018-02-04] MEDS: ASPIRIN 81 MG CHEWABLE TABLET PO SCH (08:31)
[2018-02-04] MEDS: LITHIUM CARBONATE 300 MG ER TABLET PO SCH ×3 (08:31→15:59)
[2018-02-04] MEDS: FLUoxetine HCL 20 MG CAPSULE PO SCH (08:32)
[2018-02-04] MEDS: OMEPRAZOLE 20 MG CAPSULE PO SCH (08:32)
[2018-02-04] MEDS: AmLODIPine BESYLATE 5 MG TABLET PO SCH (08:32)
[2018-02-04] MEDS: DOCUSATE SODIUM 100 MG CAPSULE PO SCH ×2 (08:32→15:59)
[2018-02-04 16:34] VITALS: BP 105/66
[2018-02-04] MEDS: QUEtiapine FUMARATE 100 MG TABLET PO SCH (20:10)
[2018-02-05] MEDS: MetFORMIN HCL 500 MG TABLET PO SCH (06:43)
[2018-02-05 07:01] VITALS: BP 111/75
[2018-02-05 08:30] VITALS: BP 113/81
[2018-02-05] MEDS: OMEPRAZOLE 20 MG CAPSULE PO SCH (09:23)
[2018-02-05] MEDS: FLUoxetine HCL 20 MG CAPSULE PO SCH (09:23)
[2018-02-05] MEDS: TRIHEXYPHENIDYL HCL 5 MG TABLET PO SCH ×3 (09:23→16:52)
[2018-02-05] MEDS: DOCUSATE SODIUM 100 MG CAPSULE PO SCH ×2 (09:23→16:52)
[2018-02-05] MEDS: PALIPERIDONE 3 MG ER TABLET PO SCH ×2 (09:24→16:53)
[2018-02-05] MEDS: LITHIUM CARBONATE 300 MG ER TABLET PO SCH ×3 (09:24→16:53)
[2018-02-05] MEDS: ASPIRIN 81 MG CHEWABLE TABLET PO SCH (09:24)
[2018-02-05] MEDS: AmLODIPine BESYLATE 5 MG TABLET PO SCH (09:24)
[2018-02-05] MEDS: HALOPERIDOL 10 MG TABLET PO SCH ×2 (09:24→16:53)
[2018-02-05] MEDS: MULTIVITAMINS, THERAPEUTIC TABLET PO SCH (09:25)
[2018-02-05 16:45] VITALS: BP 112/63
[2018-02-05] MEDS: QUEtiapine FUMARATE 100 MG TABLET PO SCH (20:25)
[2018-02-06] MEDS: MetFORMIN HCL 500 MG TABLET PO SCH (07:10)
[2018-02-06] MEDS: ASPIRIN 81 MG CHEWABLE TABLET PO SCH (08:54)
[2018-02-06] MEDS: TRIHEXYPHENIDYL HCL 5 MG TABLET PO SCH ×3 (08:54→16:11)
[2018-02-06] MEDS: LITHIUM CARBONATE 300 MG ER TABLET PO SCH ×3 (08:54→16:11)
[2018-02-06] MEDS: MULTIVITAMINS, THERAPEUTIC TABLET PO SCH (08:54)
[2018-02-06] MEDS: DOCUSATE SODIUM 100 MG CAPSULE PO SCH ×2 (08:54→16:12)
[2018-02-06] MEDS: HALOPERIDOL 10 MG TABLET PO SCH ×2 (08:54→16:11)
[2018-02-06 08:55] VITALS: BP 121/68
[2018-02-06] MEDS: AmLODIPine BESYLATE 5 MG TABLET PO SCH (08:55)
[2018-02-06] MEDS: OMEPRAZOLE 20 MG CAPSULE PO SCH (08:55)
[2018-02-06] MEDS: PALIPERIDONE 3 MG ER TABLET PO SCH ×2 (08:55→16:11)
[2018-02-06] MEDS: FLUoxetine HCL 20 MG CAPSULE PO SCH (08:55)
[2018-02-06 16:53] VITALS: BP 119/71
[2018-02-06] MEDS: QUEtiapine FUMARATE 100 MG TABLET PO SCH (20:17)
[2018-02-07 05:05] VITALS: BP 108/67
[2018-02-07] MEDS: MetFORMIN HCL 500 MG TABLET PO SCH (07:00)
[2018-02-07] MEDS: AmLODIPine BESYLATE 5 MG TABLET PO SCH (09:03)
[2018-02-07] MEDS: PALIPERIDONE 3 MG ER TABLET PO SCH ×2 (09:03→16:54)
[2018-02-07] MEDS: FLUoxetine HCL 20 MG CAPSULE PO SCH (09:03)
[2018-02-07] MEDS: MULTIVITAMINS, THERAPEUTIC TABLET PO SCH (09:03)
[2018-02-07] MEDS: TRIHEXYPHENIDYL HCL 5 MG TABLET PO SCH ×3 (09:03→16:54)
[2018-02-07] MEDS: ASPIRIN 81 MG CHEWABLE TABLET PO SCH (09:03)
[2018-02-07] MEDS: HALOPERIDOL 10 MG TABLET PO SCH ×2 (09:03→16:54)
[2018-02-07] MEDS: DOCUSATE SODIUM 100 MG CAPSULE PO SCH ×2 (09:03→16:54)
[2018-02-07] MEDS: LITHIUM CARBONATE 300 MG ER TABLET PO SCH ×3 (09:03→16:54)
[2018-02-07 09:07] VITALS: BP 117/67
[2018-02-07] MEDS: OMEPRAZOLE 20 MG CAPSULE PO SCH (09:08)
[2018-02-07 16:20] VITALS: BP 126/74
[2018-02-07] MEDS: QUEtiapine FUMARATE 100 MG TABLET PO SCH (20:37)
[2018-02-08] MEDS: MetFORMIN HCL 500 MG TABLET PO SCH (06:51)
[2018-02-08 08:10] VITALS: BP 141/68
[2018-02-08] MEDS: MULTIVITAMINS, THERAPEUTIC TABLET PO SCH (08:22)
[2018-02-08] MEDS: OMEPRAZOLE 20 MG CAPSULE PO SCH (08:22)
[2018-02-08] MEDS: DOCUSATE SODIUM 100 MG CAPSULE PO SCH ×2 (08:23→15:52)
[2018-02-08] MEDS: AmLODIPine BESYLATE 5 MG TABLET PO SCH (08:23)
[2018-02-08] MEDS: PALIPERIDONE 3 MG ER TABLET PO SCH ×2 (08:24→15:52)
[2018-02-08] MEDS: ASPIRIN 81 MG CHEWABLE TABLET PO SCH (08:24)
[2018-02-08] MEDS: HALOPERIDOL 10 MG TABLET PO SCH ×2 (08:25→15:52)
[2018-02-08] MEDS: FLUoxetine HCL 20 MG CAPSULE PO SCH (08:25)
[2018-02-08] MEDS: TRIHEXYPHENIDYL HCL 5 MG TABLET PO SCH ×3 (08:25→15:52)
[2018-02-08] MEDS: LITHIUM CARBONATE 300 MG ER TABLET PO SCH ×3 (08:25→15:52)
[2018-02-08 16:22] VITALS: BP 113/69
[2018-02-08] MEDS: QUEtiapine FUMARATE 100 MG TABLET PO SCH (19:55)
[2018-02-09] MEDS: MetFORMIN HCL 500 MG TABLET PO SCH (07:04)
[2018-02-09] MEDS: MULTIVITAMINS, THERAPEUTIC TABLET PO SCH (08:35)
[2018-02-09] MEDS: ASPIRIN 81 MG CHEWABLE TABLET PO SCH (08:35)
[2018-02-09] MEDS: TRIHEXYPHENIDYL HCL 5 MG TABLET PO SCH ×3 (08:35→16:28)
[2018-02-09] MEDS: OMEPRAZOLE 20 MG CAPSULE PO SCH (08:36)
[2018-02-09] MEDS: PALIPERIDONE 3 MG ER TABLET PO SCH ×2 (08:36→16:28)
[2018-02-09] MEDS: DOCUSATE SODIUM 100 MG CAPSULE PO SCH ×2 (08:36→16:27)
[2018-02-09] MEDS: FLUoxetine HCL 20 MG CAPSULE PO SCH (08:36)
[2018-02-09] MEDS: HALOPERIDOL 10 MG TABLET PO SCH ×2 (08:36→16:28)
[2018-02-09] MEDS: LITHIUM CARBONATE 300 MG ER TABLET PO SCH ×3 (08:36→16:28)
[2018-02-09] MEDS: AmLODIPine BESYLATE 5 MG TABLET PO SCH (08:37)
[2018-02-09 08:39] VITALS: BP 115/75
[2018-02-09 16:20] VITALS: BP 138/72
[2018-02-09] MEDS: QUEtiapine FUMARATE 100 MG TABLET PO SCH (20:17)
[2018-02-10 01:00] VITALS: BP 138/78
[2018-02-10] MEDS: MetFORMIN HCL 500 MG TABLET PO SCH (07:21)
[2018-02-10 08:44] VITALS: BP 122/76
[2018-02-10] MEDS: TRIHEXYPHENIDYL HCL 5 MG TABLET PO SCH ×3 (09:34→16:19)
[2018-02-10] MEDS: ASPIRIN 81 MG CHEWABLE TABLET PO SCH (09:34)
[2018-02-10] MEDS: FLUoxetine HCL 20 MG CAPSULE PO SCH (09:34)
[2018-02-10] MEDS: HALOPERIDOL 10 MG TABLET PO SCH ×2 (09:35→16:19)
[2018-02-10] MEDS: OMEPRAZOLE 20 MG CAPSULE PO SCH (09:35)
[2018-02-10] MEDS: PALIPERIDONE 3 MG ER TABLET PO SCH ×2 (09:35→16:19)
[2018-02-10] MEDS: DOCUSATE SODIUM 100 MG CAPSULE PO SCH ×2 (09:35→16:19)
[2018-02-10] MEDS: LITHIUM CARBONATE 300 MG ER TABLET PO SCH ×3 (09:35→16:19)
[2018-02-10] MEDS: MULTIVITAMINS, THERAPEUTIC TABLET PO SCH (09:35)
[2018-02-10] MEDS: AmLODIPine BESYLATE 5 MG TABLET PO SCH (09:36)
[2018-02-10 16:21] VITALS: BP 113/67
[2018-02-10] MEDS: QUEtiapine FUMARATE 100 MG TABLET PO SCH (20:13)
[2018-02-11 00:45] VITALS: BP 124/80
[2018-02-11] MEDS: MetFORMIN HCL 500 MG TABLET PO SCH (06:42)
[2018-02-11] MEDS: TRIHEXYPHENIDYL HCL 5 MG TABLET PO SCH ×3 (09:01→17:34)
[2018-02-11] MEDS: HALOPERIDOL 10 MG TABLET PO SCH ×2 (09:02→17:34)
[2018-02-11] MEDS: FLUoxetine HCL 20 MG CAPSULE PO SCH (09:02)
[2018-02-11] MEDS: MULTIVITAMINS, THERAPEUTIC TABLET PO SCH (09:02)
[2018-02-11] MEDS: PALIPERIDONE 3 MG ER TABLET PO SCH ×2 (09:02→17:34)
[2018-02-11] MEDS: LITHIUM CARBONATE 300 MG ER TABLET PO SCH ×3 (09:02→17:34)
[2018-02-11] MEDS: DOCUSATE SODIUM 100 MG CAPSULE PO SCH ×2 (09:02→17:34)
[2018-02-11] MEDS: ASPIRIN 81 MG CHEWABLE TABLET PO SCH (09:02)
[2018-02-11] MEDS: OMEPRAZOLE 20 MG CAPSULE PO SCH (09:02)
[2018-02-11] MEDS: AmLODIPine BESYLATE 5 MG TABLET PO SCH (09:02)
[2018-02-11 09:03] VITALS: BP 120/71
[2018-02-11 17:14] VITALS: BP 110/76
[2018-02-11] MEDS: QUEtiapine FUMARATE 100 MG TABLET PO SCH (20:21)
[2018-02-12] MEDS: MetFORMIN HCL 500 MG TABLET PO SCH (07:03)
[2018-02-12 08:41] VITALS: BP 125/78
[2018-02-12] MEDS: TRIHEXYPHENIDYL HCL 5 MG TABLET PO SCH ×3 (09:33→17:20)
[2018-02-12] MEDS: PALIPERIDONE 3 MG ER TABLET PO SCH ×2 (09:34→17:20)
[2018-02-12] MEDS: MULTIVITAMINS, THERAPEUTIC TABLET PO SCH (09:34)
[2018-02-12] MEDS: ASPIRIN 81 MG CHEWABLE TABLET PO SCH (09:34)
[2018-02-12] MEDS: HALOPERIDOL 10 MG TABLET PO SCH ×2 (09:34→17:20)
[2018-02-12] MEDS: FLUoxetine HCL 20 MG CAPSULE PO SCH (09:34)
[2018-02-12] MEDS: DOCUSATE SODIUM 100 MG CAPSULE PO SCH ×2 (09:34→17:20)
[2018-02-12] MEDS: AmLODIPine BESYLATE 5 MG TABLET PO SCH (09:35)
[2018-02-12] MEDS: OMEPRAZOLE 20 MG CAPSULE PO SCH (09:35)
[2018-02-12] MEDS: LITHIUM CARBONATE 300 MG ER TABLET PO SCH ×3 (09:35→17:21)
[2018-02-12 18:03] VITALS: BP 113/68
[2018-02-12] MEDS: QUEtiapine FUMARATE 100 MG TABLET PO SCH (20:52)
[2018-02-13 06:47] VITALS: BP 103/61
[2018-02-13] MEDS: MetFORMIN HCL 500 MG TABLET PO SCH (07:00)
[2018-02-13 08:30] VITALS: BP 108/69
[2018-02-13] MEDS: FLUoxetine HCL 20 MG CAPSULE PO SCH (08:57)
[2018-02-13] MEDS: TRIHEXYPHENIDYL HCL 5 MG TABLET PO SCH ×3 (08:57→16:20)
[2018-02-13] MEDS: ASPIRIN 81 MG CHEWABLE TABLET PO SCH (08:57)
[2018-02-13] MEDS: HALOPERIDOL 10 MG TABLET PO SCH ×2 (08:57→16:20)
[2018-02-13] MEDS: MULTIVITAMINS, THERAPEUTIC TABLET PO SCH (08:57)
[2018-02-13] MEDS: DOCUSATE SODIUM 100 MG CAPSULE PO SCH ×2 (08:57→16:20)
[2018-02-13] MEDS: LITHIUM CARBONATE 300 MG ER TABLET PO SCH ×3 (08:57→16:20)
[2018-02-13] MEDS: AmLODIPine BESYLATE 5 MG TABLET PO SCH ×2 (08:58→09:00)
[2018-02-13] MEDS: OMEPRAZOLE 20 MG CAPSULE PO SCH (08:58)
[2018-02-13] MEDS: PALIPERIDONE 3 MG ER TABLET PO SCH ×2 (08:58→16:20)
[2018-02-13 16:45] VITALS: BP 114/71
[2018-02-13] MEDS: QUEtiapine FUMARATE 100 MG TABLET PO SCH (20:34)
[2018-02-14] MEDS: MetFORMIN HCL 500 MG TABLET PO SCH (06:48)
[2018-02-14 08:00] VITALS: BP 108/71
[2018-02-14] MEDS: TRIHEXYPHENIDYL HCL 5 MG TABLET PO SCH ×3 (08:42→16:18)
[2018-02-14] MEDS: DOCUSATE SODIUM 100 MG CAPSULE PO SCH ×2 (08:42→16:17)
[2018-02-14] MEDS: LITHIUM CARBONATE 300 MG ER TABLET PO SCH ×3 (08:42→16:18)
[2018-02-14] MEDS: MULTIVITAMINS, THERAPEUTIC TABLET PO SCH (08:43)
[2018-02-14] MEDS: ASPIRIN 81 MG CHEWABLE TABLET PO SCH (08:43)
[2018-02-14] MEDS: PALIPERIDONE 3 MG ER TABLET PO SCH ×2 (08:43→16:18)
[2018-02-14] MEDS: OMEPRAZOLE 20 MG CAPSULE PO SCH (08:43)
[2018-02-14] MEDS: FLUoxetine HCL 20 MG CAPSULE PO SCH (08:43)
[2018-02-14] MEDS: HALOPERIDOL 10 MG TABLET PO SCH ×2 (08:43→16:18)
[2018-02-14] MEDS: AmLODIPine BESYLATE 5 MG TABLET PO SCH (09:57)
[2018-02-14] MEDS: QUEtiapine FUMARATE 100 MG TABLET PO SCH (20:26)
[2018-02-14 21:36] VITALS: BP 117/71
[2018-02-15 06:37] VITALS: BP 112/75
[2018-02-15] MEDS: MetFORMIN HCL 500 MG TABLET PO SCH (07:01)
[2018-02-15] MEDS: DOCUSATE SODIUM 100 MG CAPSULE PO SCH ×2 (08:29→16:25)
[2018-02-15] MEDS: MULTIVITAMINS, THERAPEUTIC TABLET PO SCH (08:29)
[2018-02-15] MEDS: OMEPRAZOLE 20 MG CAPSULE PO SCH (08:29)
[2018-02-15] MEDS: AmLODIPine BESYLATE 5 MG TABLET PO SCH (08:29)
[2018-02-15] MEDS: PALIPERIDONE 3 MG ER TABLET PO SCH ×2 (08:29→16:15)
[2018-02-15] MEDS: ASPIRIN 81 MG CHEWABLE TABLET PO SCH (08:29)
[2018-02-15] MEDS: LITHIUM CARBONATE 300 MG ER TABLET PO SCH ×3 (08:29→16:15)
[2018-02-15] MEDS: FLUoxetine HCL 20 MG CAPSULE PO SCH (08:29)
[2018-02-15] MEDS: HALOPERIDOL 10 MG TABLET PO SCH ×2 (08:29→16:15)
[2018-02-15] MEDS: TRIHEXYPHENIDYL HCL 5 MG TABLET PO SCH ×3 (08:30→16:15)
[2018-02-15 09:24] VITALS: BP 120/72
[2018-02-15 16:45] VITALS: BP 115/70
[2018-02-15] MEDS: QUEtiapine FUMARATE 100 MG TABLET PO SCH (20:26)
[2018-02-16] MEDS: MetFORMIN HCL 500 MG TABLET PO SCH (06:44)
[2018-02-16] MEDS: OMEPRAZOLE 20 MG CAPSULE PO SCH (07:56)
[2018-02-16] MEDS: LITHIUM CARBONATE 300 MG ER TABLET PO SCH ×3 (07:57→17:00)
[2018-02-16] MEDS: HALOPERIDOL 10 MG TABLET PO SCH ×2 (07:57→17:00)
[2018-02-16] MEDS: PALIPERIDONE 3 MG ER TABLET PO SCH ×2 (07:57→17:00)
[2018-02-16] MEDS: AmLODIPine BESYLATE 5 MG TABLET PO SCH (07:57)
[2018-02-16] MEDS: DOCUSATE SODIUM 100 MG CAPSULE PO SCH ×2 (07:57→17:03)
[2018-02-16] MEDS: TRIHEXYPHENIDYL HCL 5 MG TABLET PO SCH ×3 (07:57→16:59)
[2018-02-16] MEDS: MULTIVITAMINS, THERAPEUTIC TABLET PO SCH (07:57)
[2018-02-16] MEDS: FLUoxetine HCL 20 MG CAPSULE PO SCH (07:58)
[2018-02-16] MEDS: ASPIRIN 81 MG CHEWABLE TABLET PO SCH (07:58)
[2018-02-16 09:10] VITALS: BP 124/68
[2018-02-16 17:00] VITALS: BP 108/63
[2018-02-16] MEDS: QUEtiapine FUMARATE 100 MG TABLET PO SCH (20:38)
[2018-02-17] MEDS: MetFORMIN HCL 500 MG TABLET PO SCH (06:55)
[2018-02-17] MEDS: MULTIVITAMINS, THERAPEUTIC TABLET PO SCH (09:13)
[2018-02-17] MEDS: OMEPRAZOLE 20 MG CAPSULE PO SCH (09:14)
[2018-02-17] MEDS: AmLODIPine BESYLATE 5 MG TABLET PO SCH (09:14)
[2018-02-17] MEDS: DOCUSATE SODIUM 100 MG CAPSULE PO SCH ×2 (09:14→16:21)
[2018-02-17] MEDS: PALIPERIDONE 3 MG ER TABLET PO SCH ×2 (09:15→16:18)
[2018-02-17] MEDS: ASPIRIN 81 MG CHEWABLE TABLET PO SCH (09:15)
[2018-02-17] MEDS: TRIHEXYPHENIDYL HCL 5 MG TABLET PO SCH ×3 (09:15→16:18)
[2018-02-17] MEDS: LITHIUM CARBONATE 300 MG ER TABLET PO SCH ×3 (09:15→16:18)
[2018-02-17] MEDS: HALOPERIDOL 10 MG TABLET PO SCH ×2 (09:15→16:18)
[2018-02-17] MEDS: FLUoxetine HCL 20 MG CAPSULE PO SCH (09:15)
[2018-02-17 09:56] VITALS: BP 128/62
[2018-02-17 17:00] VITALS: BP 106/69
[2018-02-17] MEDS: QUEtiapine FUMARATE 100 MG TABLET PO SCH (20:23)
[2018-02-18] MEDS: MetFORMIN HCL 500 MG TABLET PO SCH (06:42)
[2018-02-18 08:15] VITALS: BP 106/73
[2018-02-18] MEDS: DOCUSATE SODIUM 100 MG CAPSULE PO SCH ×2 (08:40→16:07)
[2018-02-18] MEDS: FLUoxetine HCL 20 MG CAPSULE PO SCH (08:40)
[2018-02-18] MEDS: LITHIUM CARBONATE 300 MG ER TABLET PO SCH ×3 (08:40→16:07)
[2018-02-18] MEDS: TRIHEXYPHENIDYL HCL 5 MG TABLET PO SCH ×3 (08:40→16:07)
[2018-02-18] MEDS: HALOPERIDOL 10 MG TABLET PO SCH ×2 (08:40→16:07)
[2018-02-18] MEDS: PALIPERIDONE 3 MG ER TABLET PO SCH ×2 (08:40→16:07)
[2018-02-18] MEDS: OMEPRAZOLE 20 MG CAPSULE PO SCH (08:40)
[2018-02-18] MEDS: MULTIVITAMINS, THERAPEUTIC TABLET PO SCH (08:40)
[2018-02-18] MEDS: AmLODIPine BESYLATE 5 MG TABLET PO SCH (08:41)
[2018-02-18] MEDS: ASPIRIN 81 MG CHEWABLE TABLET PO SCH (08:41)
[2018-02-18 16:19] VITALS: BP 109/63
[2018-02-18] MEDS: QUEtiapine FUMARATE 100 MG TABLET PO SCH (20:36)
[2018-02-19] MEDS: MetFORMIN HCL 500 MG TABLET PO SCH (07:23)
[2018-02-19 08:30] VITALS: BP 108/69
[2018-02-19] MEDS: MULTIVITAMINS, THERAPEUTIC TABLET PO SCH (10:05)
[2018-02-19] MEDS: DOCUSATE SODIUM 100 MG CAPSULE PO SCH ×2 (10:05→17:03)
[2018-02-19] MEDS: ASPIRIN 81 MG CHEWABLE TABLET PO SCH (10:05)
[2018-02-19] MEDS: HALOPERIDOL 10 MG TABLET PO SCH ×2 (10:05→17:03)
[2018-02-19] MEDS: OMEPRAZOLE 20 MG CAPSULE PO SCH (10:05)
[2018-02-19] MEDS: FLUoxetine HCL 20 MG CAPSULE PO SCH (10:05)
[2018-02-19] MEDS: TRIHEXYPHENIDYL HCL 5 MG TABLET PO SCH ×3 (10:05→17:04)
[2018-02-19] MEDS: LITHIUM CARBONATE 300 MG ER TABLET PO SCH ×3 (10:05→17:04)
[2018-02-19] MEDS: PALIPERIDONE 3 MG ER TABLET PO SCH ×2 (10:05→17:03)
[2018-02-19] MEDS: AmLODIPine BESYLATE 5 MG TABLET PO SCH (10:06)
[2018-02-19] MEDS: QUEtiapine FUMARATE 100 MG TABLET PO SCH (20:15)
[2018-02-19 21:13] VITALS: BP 110/72
[2018-02-20] MEDS: MetFORMIN HCL 500 MG TABLET PO SCH (07:02)
[2018-02-20] MEDS: DOCUSATE SODIUM 100 MG CAPSULE PO SCH ×2 (08:40→16:09)
[2018-02-20] MEDS: OMEPRAZOLE 20 MG CAPSULE PO SCH (08:40)
[2018-02-20] MEDS: ASPIRIN 81 MG CHEWABLE TABLET PO SCH (08:40)
[2018-02-20] MEDS: LITHIUM CARBONATE 300 MG ER TABLET PO SCH ×3 (08:40→16:09)
[2018-02-20] MEDS: HALOPERIDOL 10 MG TABLET PO SCH ×2 (08:41→16:09)
[2018-02-20] MEDS: TRIHEXYPHENIDYL HCL 5 MG TABLET PO SCH ×3 (08:41→16:09)
[2018-02-20] MEDS: MULTIVITAMINS, THERAPEUTIC TABLET PO SCH (08:41)
[2018-02-20] MEDS: FLUoxetine HCL 20 MG CAPSULE PO SCH (08:41)
[2018-02-20] MEDS: PALIPERIDONE 3 MG ER TABLET PO SCH ×2 (08:41→16:09)
[2018-02-20] MEDS: AmLODIPine BESYLATE 5 MG TABLET PO SCH (08:41)
[2018-02-20 09:43] VITALS: BP 116/73
[2018-02-20 16:39] VITALS: BP 103/65
[2018-02-20] MEDS: QUEtiapine FUMARATE 100 MG TABLET PO SCH (20:22)
[2018-02-21] MEDS: MetFORMIN HCL 500 MG TABLET PO SCH (07:12)
[2018-02-21] MEDS: HALOPERIDOL 10 MG TABLET PO SCH ×2 (08:35→16:08)
[2018-02-21] MEDS: ASPIRIN 81 MG CHEWABLE TABLET PO SCH (08:35)
[2018-02-21] MEDS: OMEPRAZOLE 20 MG CAPSULE PO SCH (08:35)
[2018-02-21] MEDS: DOCUSATE SODIUM 100 MG CAPSULE PO SCH ×2 (08:35→16:08)
[2018-02-21] MEDS: FLUoxetine HCL 20 MG CAPSULE PO SCH (08:35)
[2018-02-21] MEDS: TRIHEXYPHENIDYL HCL 5 MG TABLET PO SCH ×3 (08:35→16:08)
[2018-02-21] MEDS: LITHIUM CARBONATE 300 MG ER TABLET PO SCH ×3 (08:36→16:08)
[2018-02-21] MEDS: AmLODIPine BESYLATE 5 MG TABLET PO SCH (08:36)
[2018-02-21] MEDS: MULTIVITAMINS, THERAPEUTIC TABLET PO SCH (08:37)
[2018-02-21] MEDS: PALIPERIDONE 3 MG ER TABLET PO SCH ×2 (08:37→16:08)
[2018-02-21 09:02] VITALS: BP 105/64
[2018-02-21 17:45] VITALS: BP 111/65
[2018-02-21] MEDS: QUEtiapine FUMARATE 100 MG TABLET PO SCH (20:15)
[2018-02-22 05:51] VITALS: BP 139/77
[2018-02-22] MEDS: MetFORMIN HCL 500 MG TABLET PO SCH (07:10)
[2018-02-22 08:00] VITALS: BP 116/74
[2018-02-22] MEDS: AmLODIPine BESYLATE 5 MG TABLET PO SCH (08:26)
[2018-02-22] MEDS: PALIPERIDONE 3 MG ER TABLET PO SCH ×2 (08:26→16:06)
[2018-02-22] MEDS: LITHIUM CARBONATE 300 MG ER TABLET PO SCH ×3 (08:26→16:06)
[2018-02-22] MEDS: HALOPERIDOL 10 MG TABLET PO SCH ×2 (08:26→16:06)
[2018-02-22] MEDS: TRIHEXYPHENIDYL HCL 5 MG TABLET PO SCH ×3 (08:26→16:06)
[2018-02-22] MEDS: ASPIRIN 81 MG CHEWABLE TABLET PO SCH (08:26)
[2018-02-22] MEDS: FLUoxetine HCL 20 MG CAPSULE PO SCH (08:26)
[2018-02-22] MEDS: OMEPRAZOLE 20 MG CAPSULE PO SCH (08:26)
[2018-02-22] MEDS: DOCUSATE SODIUM 100 MG CAPSULE PO SCH ×2 (08:26→16:06)
[2018-02-22] MEDS: MULTIVITAMINS, THERAPEUTIC TABLET PO SCH (08:26)
[2018-02-22 16:45] VITALS: BP 124/71
[2018-02-22] MEDS: QUEtiapine FUMARATE 100 MG TABLET PO SCH (20:37)
[2018-02-23 00:50] VITALS: BP 113/68
[2018-02-23] MEDS: MetFORMIN HCL 500 MG TABLET PO SCH (07:28)
[2018-02-23 08:00] VITALS: BP 114/62
[2018-02-23] MEDS: MULTIVITAMINS, THERAPEUTIC TABLET PO SCH (08:51)
[2018-02-23] MEDS: TRIHEXYPHENIDYL HCL 5 MG TABLET PO SCH ×3 (08:51→16:15)
[2018-02-23] MEDS: DOCUSATE SODIUM 100 MG CAPSULE PO SCH ×2 (08:51→16:15)
[2018-02-23] MEDS: OMEPRAZOLE 20 MG CAPSULE PO SCH (08:51)
[2018-02-23] MEDS: PALIPERIDONE 3 MG ER TABLET PO SCH ×2 (08:51→16:15)
[2018-02-23] MEDS: ASPIRIN 81 MG CHEWABLE TABLET PO SCH (08:51)
[2018-02-23] MEDS: LITHIUM CARBONATE 300 MG ER TABLET PO SCH ×3 (08:51→16:15)
[2018-02-23] MEDS: HALOPERIDOL 10 MG TABLET PO SCH ×2 (08:52→16:15)
[2018-02-23] MEDS: AmLODIPine BESYLATE 5 MG TABLET PO SCH (08:52)
[2018-02-23] MEDS: FLUoxetine HCL 20 MG CAPSULE PO SCH (08:52)
[2018-02-23 16:31] VITALS: BP 104/61
[2018-02-23] MEDS: QUEtiapine FUMARATE 100 MG TABLET PO SCH (20:10)
[2018-02-24] MEDS: MetFORMIN HCL 500 MG TABLET PO SCH (07:26)
[2018-02-24 08:14] VITALS: BP 120/67
[2018-02-24] MEDS: MULTIVITAMINS, THERAPEUTIC TABLET PO SCH (08:19)
[2018-02-24] MEDS: TRIHEXYPHENIDYL HCL 5 MG TABLET PO SCH ×3 (08:19→17:27)
[2018-02-24] MEDS: HALOPERIDOL 10 MG TABLET PO SCH ×2 (08:20→17:27)
[2018-02-24] MEDS: OMEPRAZOLE 20 MG CAPSULE PO SCH (08:20)
[2018-02-24] MEDS: AmLODIPine BESYLATE 5 MG TABLET PO SCH (08:20)
[2018-02-24] MEDS: FLUoxetine HCL 20 MG CAPSULE PO SCH (08:20)
[2018-02-24] MEDS: LITHIUM CARBONATE 300 MG ER TABLET PO SCH ×3 (08:20→17:27)
[2018-02-24] MEDS: PALIPERIDONE 3 MG ER TABLET PO SCH ×2 (08:20→17:27)
[2018-02-24] MEDS: ASPIRIN 81 MG CHEWABLE TABLET PO SCH (08:20)
[2018-02-24] MEDS: DOCUSATE SODIUM 100 MG CAPSULE PO SCH ×2 (08:20→17:00)
[2018-02-24 16:03] VITALS: BP 119/69
[2018-02-24] MEDS: QUEtiapine FUMARATE 100 MG TABLET PO SCH (20:01)
[2018-02-25] MEDS: MetFORMIN HCL 500 MG TABLET PO SCH (07:04)
[2018-02-25] MEDS: LITHIUM CARBONATE 300 MG ER TABLET PO SCH ×3 (08:19→16:26)
[2018-02-25] MEDS: AmLODIPine BESYLATE 5 MG TABLET PO SCH (08:19)
[2018-02-25] MEDS: TRIHEXYPHENIDYL HCL 5 MG TABLET PO SCH ×3 (08:19→16:26)
[2018-02-25] MEDS: OMEPRAZOLE 20 MG CAPSULE PO SCH (08:19)
[2018-02-25] MEDS: HALOPERIDOL 10 MG TABLET PO SCH ×2 (08:19→16:26)
[2018-02-25] MEDS: PALIPERIDONE 3 MG ER TABLET PO SCH ×2 (08:19→16:26)
[2018-02-25] MEDS: MULTIVITAMINS, THERAPEUTIC TABLET PO SCH (08:20)
[2018-02-25] MEDS: ASPIRIN 81 MG CHEWABLE TABLET PO SCH (08:20)
[2018-02-25] MEDS: FLUoxetine HCL 20 MG CAPSULE PO SCH (08:20)
[2018-02-25] MEDS: DOCUSATE SODIUM 100 MG CAPSULE PO SCH ×2 (08:20→16:26)
[2018-02-25 13:25] VITALS: BP 113/64
[2018-02-25 20:36] VITALS: BP 124/77
[2018-02-25] MEDS: QUEtiapine FUMARATE 100 MG TABLET PO SCH (20:45)
[2018-02-26] MEDS: MetFORMIN HCL 500 MG TABLET PO SCH (07:16)
[2018-02-26] MEDS: TRIHEXYPHENIDYL HCL 5 MG TABLET PO SCH ×3 (07:55→16:01)
[2018-02-26] MEDS: DOCUSATE SODIUM 100 MG CAPSULE PO SCH ×2 (07:55→16:01)
[2018-02-26] MEDS: MULTIVITAMINS, THERAPEUTIC TABLET PO SCH (07:55)
[2018-02-26] MEDS: ASPIRIN 81 MG CHEWABLE TABLET PO SCH (07:55)
[2018-02-26] MEDS: OMEPRAZOLE 20 MG CAPSULE PO SCH (07:55)
[2018-02-26] MEDS: AmLODIPine BESYLATE 5 MG TABLET PO SCH (07:55)
[2018-02-26] MEDS: LITHIUM CARBONATE 300 MG ER TABLET PO SCH ×3 (07:56→16:01)
[2018-02-26] MEDS: FLUoxetine HCL 20 MG CAPSULE PO SCH (07:56)
[2018-02-26] MEDS: PALIPERIDONE 3 MG ER TABLET PO SCH ×2 (07:56→16:01)
[2018-02-26] MEDS: HALOPERIDOL 10 MG TABLET PO SCH ×2 (07:56→16:01)
[2018-02-26 09:14] VITALS: BP 100/66
[2018-02-26 20:24] VITALS: BP 110/70
[2018-02-26] MEDS: QUEtiapine FUMARATE 100 MG TABLET PO SCH (20:38)
[2018-02-27 01:41] VITALS: BP 112/72
[2018-02-27] MEDS: MetFORMIN HCL 500 MG TABLET PO SCH (06:37)
[2018-02-27] MEDS: ASPIRIN 81 MG CHEWABLE TABLET PO SCH (07:53)
[2018-02-27] MEDS: TRIHEXYPHENIDYL HCL 5 MG TABLET PO SCH ×3 (07:53→16:04)
[2018-02-27] MEDS: LITHIUM CARBONATE 300 MG ER TABLET PO SCH ×3 (07:53→16:04)
[2018-02-27] MEDS: FLUoxetine HCL 20 MG CAPSULE PO SCH (07:53)
[2018-02-27] MEDS: PALIPERIDONE 3 MG ER TABLET PO SCH ×2 (07:54→16:05)
[2018-02-27] MEDS: DOCUSATE SODIUM 100 MG CAPSULE PO SCH ×2 (07:54→16:04)
[2018-02-27] MEDS: AmLODIPine BESYLATE 5 MG TABLET PO SCH (07:54)
[2018-02-27] MEDS: MULTIVITAMINS, THERAPEUTIC TABLET PO SCH (07:54)
[2018-02-27] MEDS: OMEPRAZOLE 20 MG CAPSULE PO SCH (07:54)
[2018-02-27] MEDS: HALOPERIDOL 10 MG TABLET PO SCH ×2 (07:54→16:04)
[2018-02-27 08:36] VITALS: BP 123/65
[2018-02-27 16:13] VITALS: BP 111/67
[2018-02-27] MEDS: QUEtiapine FUMARATE 100 MG TABLET PO SCH (20:31)
[2018-02-28] MEDS: MetFORMIN HCL 500 MG TABLET PO SCH (07:12)
[2018-02-28 08:00] VITALS: BP 115/72
[2018-02-28] MEDS: MULTIVITAMINS, THERAPEUTIC TABLET PO SCH (09:13)
[2018-02-28] MEDS: TRIHEXYPHENIDYL HCL 5 MG TABLET PO SCH ×3 (09:13→16:22)
[2018-02-28] MEDS: PALIPERIDONE 3 MG ER TABLET PO SCH ×2 (09:13→16:22)
[2018-02-28] MEDS: AmLODIPine BESYLATE 5 MG TABLET PO SCH (09:13)
[2018-02-28] MEDS: OMEPRAZOLE 20 MG CAPSULE PO SCH (09:13)
[2018-02-28] MEDS: FLUoxetine HCL 20 MG CAPSULE PO SCH (09:14)
[2018-02-28] MEDS: DOCUSATE SODIUM 100 MG CAPSULE PO SCH ×2 (09:17→16:21)
[2018-02-28] MEDS: ASPIRIN 81 MG CHEWABLE TABLET PO SCH (09:17)
[2018-02-28] MEDS: HALOPERIDOL 10 MG TABLET PO SCH ×2 (09:20→16:21)
[2018-02-28] MEDS: LITHIUM CARBONATE 300 MG ER TABLET PO SCH ×3 (09:20→16:22)
[2018-02-28 16:05] VITALS: BP 98/61
[2018-02-28] MEDS: QUEtiapine FUMARATE 100 MG TABLET PO SCH (20:24)
[2018-03-01 00:05] VITALS: BP 112/70
[2018-03-01] MEDS: MetFORMIN HCL 500 MG TABLET PO SCH (07:10)
[2018-03-01] MEDS: AmLODIPine BESYLATE 5 MG TABLET PO SCH (08:50)
[2018-03-01] MEDS: DOCUSATE SODIUM 100 MG CAPSULE PO SCH (08:50)
[2018-03-01] MEDS: LITHIUM CARBONATE 300 MG ER TABLET PO SCH ×2 (08:50→12:43)
[2018-03-01] MEDS: OMEPRAZOLE 20 MG CAPSULE PO SCH (08:51)
[2018-03-01] MEDS: HALOPERIDOL 10 MG TABLET PO SCH (08:51)
[2018-03-01] MEDS: ASPIRIN 81 MG CHEWABLE TABLET PO SCH (08:51)
[2018-03-01] MEDS: PALIPERIDONE 3 MG ER TABLET PO SCH (08:51)
[2018-03-01] MEDS: MULTIVITAMINS, THERAPEUTIC TABLET PO SCH (08:51)
[2018-03-01] MEDS: TRIHEXYPHENIDYL HCL 5 MG TABLET PO SCH ×2 (08:51→12:43)
[2018-03-01] MEDS: FLUoxetine HCL 20 MG CAPSULE PO SCH (08:51)
[2018-03-01 09:09] VITALS: BP 109/71
[2018-03-01] MEDS ORDERED: METF500T6 PO (12:55)
[2018-03-01] MEDS ORDERED: AMLO-511 PO (12:55)
[2018-03-01] MEDS ORDERED: PALI3 PO (12:55)
[2018-03-01] MEDS ORDERED: OMEP20 PO (12:55)
[2018-03-01] MEDS ORDERED: ASPI-1182 PO (12:55)
[2018-03-01] MEDS ORDERED: HALO50VI4 IM (13:05)
== END 2018-03-01 16:45 | disposition home or self-care (01) | DRG 885 ==
LOC: EMS 12:25 → 3EX 19:15
PROVIDERS: ADMIT Psychiatry & Neurology Psychiatry; ATTEND Psychiatry & Neurology Psychiatry
PROC: 0HBMXZZ Excision of Right Foot Skin, External Approach (ICD-10-PCS; 2018-01-09)
PROC: 0HBNXZZ Excision of Left Foot Skin, External Approach (ICD-10-PCS; principal; 2018-01-09 09:00)
DX: F25.0 Schizoaffective disorder, bipolar type (principal); R45.851 Suicidal ideations; G20 Parkinson's disease; E11.9 Type 2 diabetes mellitus without complications; F79 Unspecified intellectual disabilities; E03.9 Hypothyroidism, unspecified; I10 Essential (primary) hypertension; K21.9 Gastro-esophageal reflux disease without esophagitis; I25.10 Atherosclerotic heart disease of native coronary artery without angina pectoris; B35.1 Tinea unguium; D64.9 Anemia, unspecified; E78.5 Hyperlipidemia, unspecified; E11.40 Type 2 diabetes mellitus with diabetic neuropathy, unspecified; E11.621 Type 2 diabetes mellitus with foot ulcer; L97.519 Non-pressure chronic ulcer of other part of right foot with unspecified severity; L97.529 Non-pressure chronic ulcer of other part of left foot with unspecified severity; Z91.19 Patient's noncompliance with other medical treatment and regimen; Z79.899 Other long term (current) drug therapy; Z95.5 Presence of coronary angioplasty implant and graft; Z91.5 Personal history of self-harm
CPT/HCPCS: 83036; 84443; 87070; 87081; 87205; 88304; 93005; 99285; G0480; J1200; J1630; J1631; J2060; J2250; J2704; J3010; J3490; J7120

== ENCOUNTER 2018-03-06 16:09 | Emergency (ER) | payer MEDICARE, OTHER ==
[~2018-03-06] VITALS: Ht 180.3 cm; Wt 82.5 kg
[~2018-03-06 16:09] MED LIST changes: +AMLO-511 PO; +ASPI-1182 PO; -BACTDSB PO; +HALO50VI4 IM; +METF500T6 PO; +OMEP20 PO; +PALI3 PO
[2018-03-06 16:28] LABS: GLUCOSE,POINT OF CARE 104 MG/DL (70-110)
[2018-03-06 20:14] VITALS: BP 130/65
== END 2018-03-06 20:15 | disposition home or self-care (01) ==
LOC: EMS 16:10
DX: L03.211 Cellulitis of face (principal); L02.01 Cutaneous abscess of face; E11.621 Type 2 diabetes mellitus with foot ulcer; L97.509 Non-pressure chronic ulcer of other part of unspecified foot with unspecified severity; I25.10 Atherosclerotic heart disease of native coronary artery without angina pectoris; K21.9 Gastro-esophageal reflux disease without esophagitis; I10 Essential (primary) hypertension; E03.9 Hypothyroidism, unspecified
CPT/HCPCS: 99283

== ENCOUNTER 2018-03-08 09:44 | Emergency (ER) | payer MEDICARE, OTHER ==
[~2018-03-08] VITALS: Ht 180.3 cm; Wt 84.1 kg
[2018-03-08 09:56] VITALS: BP 116/72
[2018-03-08] MEDS ORDERED: SULF1TAB42 PO (10:00)
[2018-03-08] MEDS ORDERED: CEPH500 PO (10:00)
[2018-03-08] MEDS ORDERED: TRAM50TA4 PO (10:00)
[2018-03-08] MEDS ORDERED: LIDOCAINE HCL 1% 10 ML VIAL INJ ONE (11:00)
== END 2018-03-08 12:08 | disposition home or self-care (01) ==
LOC: EMS 09:47
DX: L02.31 Cutaneous abscess of buttock (principal); E11.621 Type 2 diabetes mellitus with foot ulcer; F20.9 Schizophrenia, unspecified; F31.9 Bipolar disorder, unspecified; K21.9 Gastro-esophageal reflux disease without esophagitis; E03.9 Hypothyroidism, unspecified; Z79.899 Other long term (current) drug therapy; Z79.82 Long term (current) use of aspirin
CPT/HCPCS: 10060; 99284; J3490

== ENCOUNTER 2018-03-14 09:08 | Emergency (ER) | payer MEDICARE, OTHER ==
[~2018-03-14] VITALS: Ht 180.3 cm; Wt 83.6 kg
[~2018-03-14 09:08] MED LIST changes: +CEPH500 PO; +SULF1TAB42 PO; +TRAM50TA4 PO
[2018-03-14 09:29] LABS: GLUCOSE,POINT OF CARE 142 MG/DL (70-110)
[2018-03-14 10:07] VITALS: BP 147/78
[2018-03-14] MEDS ORDERED: ONDANSETRON HCL 4 MG/2 ML VIAL IVP ONE (10:30)
[2018-03-14 10:32] LABS: BASOPHILS % (AUTO) 0.9 % (0.0-2.0); EOSINOPHILS % (AUTO) 1.5 % (1.0-6.0); HEMATOCRIT 34.3 % (41-53); HEMOGLOBIN 11.7 g/dL (13.5-17.5); LYMPHOCYTES # (AUTO) 1.1 K/uL (1.0-4.8); LYMPHOCYTES % (AUTO) 11.5 % (22.0-44.0); MEAN CORPUSCULAR HEMOGLOBIN 30.1 pg (26.0-34.0); MEAN CORPUSCULAR HGB CONC 34.1 G/dL (31.0-37.0); MEAN CORPUSCULAR VOLUME 89 fL (80-100); MONOCYTES # (AUTO) 0.6 K/uL (0.1-1.0); MONOCYTES % (AUTO) 5.7 % (2.0-9.0); NEUTROPHILS # (AUTO) 7.9 K/uL (1.8-7.7); NEUTROPHILS % (AUTO) 80.4 % (40.0-70.0); PLATELET COUNT (AUTO) 316 K/uL (150-450); RED BLOOD CELL COUNT(AUTO) 3.88 MIL/uL (4.50-5.90); RED CELL DISTRIBUTION WIDTH 14.9 % (11.5-14.5)
[2018-03-14 10:41] LABS: ANION GAP 8 mmol/L (8-16); CALCIUM, TOTAL 8.8 mg/dL (8.8-10.5); CARBON DIOXIDE 27 mmol/L (22-29); CHLORIDE 104 mmol/L (98-107); CREATININE 0.95 mg/dL (0.60-1.30); GLOMERULAR FILTR. RATE CALC > 60 mL/min (>60); GLUCOSE,RANDOM 147 mg/dL (70-110); POTASSIUM 4.5 mmol/L (3.5-5.1); SODIUM SERUM 139 mmol/L (136-145); UREA NITROGEN, BLOOD 12 mg/dL (7-18)
[2018-03-14 10:48] LABS: ALANINE AMINOTRANSFERASE 35 U/L (12-78); ALBUMIN 3.8 g/dL (3.4-5.0); ALKALINE PHOSPHATASE 113 U/L (46-116); ASPARTATE AMINOTRANSFERASE 27 U/L (15-37); BILIRUBIN,TOTAL 0.1 mg/dL (0.1-1.0); TOTAL PROTEIN, SERUM 7.9 g/dL (6.4-8.2)
== END 2018-03-14 11:36 | disposition home or self-care (01) ==
LOC: EMS 09:10
DX: R11.2 Nausea with vomiting, unspecified (principal); G20 Parkinson's disease; I25.10 Atherosclerotic heart disease of native coronary artery without angina pectoris; E11.9 Type 2 diabetes mellitus without complications; K21.9 Gastro-esophageal reflux disease without esophagitis; E03.9 Hypothyroidism, unspecified; I10 Essential (primary) hypertension; Z48.00 Encounter for change or removal of nonsurgical wound dressing
CPT/HCPCS: 36415; 80053; 82962; 84484; 85025; 93005; 96374; 99285; J2405

== ENCOUNTER 2018-05-20 09:54 | Emergency (ER) | payer MEDICARE, SELFPAY ==
[~2018-05-20] VITALS: Ht 180.3 cm; Wt 83.6 kg
[2018-05-20] MEDS ORDERED: LIDOCAINE HCL 2%/EPI 1:200,000/PF 20 ML VIAL INJ ONE (10:00)
[2018-05-20 10:08] LABS: GLUCOSE,POINT OF CARE 121 MG/DL (70-110)
[2018-05-20] MEDS ORDERED: HYDROCODONE/ACETAMINOPHEN 5-325 MG TABLET PO ONE (12:00)
[2018-05-20 12:22] VITALS: BP 125/71
== END 2018-05-20 12:46 | disposition home or self-care (01) ==
LOC: EMS 09:55
DX: L02.31 Cutaneous abscess of buttock (principal); L03.317 Cellulitis of buttock; I10 Essential (primary) hypertension; I25.10 Atherosclerotic heart disease of native coronary artery without angina pectoris; E03.9 Hypothyroidism, unspecified; E11.9 Type 2 diabetes mellitus without complications; K21.9 Gastro-esophageal reflux disease without esophagitis; F31.9 Bipolar disorder, unspecified; F20.9 Schizophrenia, unspecified; Z79.82 Long term (current) use of aspirin; Z79.84 Long term (current) use of oral hypoglycemic drugs
CPT/HCPCS: 10060; 99284

== ENCOUNTER 2018-05-22 10:29 | Emergency (ER) | payer MEDICARE, OTHER ==
[~2018-05-22] VITALS: Ht 180.3 cm; Wt 83.6 kg
[~2018-05-22 10:29] MED LIST changes: -CEPH500 PO; +METF-960 PO; -METF500T6 PO
[2018-05-22 10:53] LABS: GLUCOSE,POINT OF CARE 146 MG/DL (70-110)
[2018-05-22] MEDS ORDERED: HYDROCODONE/ACETAMINOPHEN 5-325 MG TABLET PO ONE (12:15)
[2018-05-22 13:13] VITALS: BP 110/69
== END 2018-05-22 13:14 | disposition home or self-care (01) ==
LOC: EMS 10:31
DX: L02.31 Cutaneous abscess of buttock (principal); L02.01 Cutaneous abscess of face; I10 Essential (primary) hypertension; E11.9 Type 2 diabetes mellitus without complications; K21.9 Gastro-esophageal reflux disease without esophagitis; F31.9 Bipolar disorder, unspecified; F20.9 Schizophrenia, unspecified; I25.10 Atherosclerotic heart disease of native coronary artery without angina pectoris; E03.9 Hypothyroidism, unspecified; G20 Parkinson's disease; Z79.82 Long term (current) use of aspirin; Z79.899 Other long term (current) drug therapy
CPT/HCPCS: 99283

== ENCOUNTER 2018-08-19 21:53 | Emergency (ER) | payer MEDICARE, OTHER ==
[~2018-08-19] VITALS: Ht 180.3 cm; Wt 85.9 kg
[2018-08-19 22:09] LABS: GLUCOSE,POINT OF CARE 154 MG/DL (70-110)
[2018-08-19 22:13] LABS: BASOPHILS % (AUTO) 0.3 % (0.0-2.0); EOSINOPHILS % (AUTO) 2.1 % (1.0-6.0); HEMATOCRIT 35.7 % (41-53); HEMOGLOBIN 12.1 g/dL (13.5-17.5); LYMPHOCYTES # (AUTO) 2.3 K/uL (1.0-4.8); LYMPHOCYTES % (AUTO) 19.6 % (22.0-44.0); MEAN CORPUSCULAR HEMOGLOBIN 31.2 pg (26.0-34.0); MEAN CORPUSCULAR HGB CONC 33.8 G/dL (31.0-37.0); MEAN CORPUSCULAR VOLUME 92 fL (80-100); MONOCYTES # (AUTO) 1.2 K/uL (0.1-1.0); MONOCYTES % (AUTO) 10.2 % (2.0-9.0); NEUTROPHILS % (AUTO) 67.8 % (40.0-70.0); PLATELET COUNT (AUTO) 238 K/uL (150-450); RED BLOOD CELL COUNT(AUTO) 3.87 MIL/uL (4.50-5.90); RED CELL DISTRIBUTION WIDTH 13.9 % (11.5-14.5)
[2018-08-19] MEDS ORDERED: FLUO-191 PO (22:21)
[2018-08-19] MEDS ORDERED: HALO10 PO (22:21)
[2018-08-19] MEDS ORDERED: TRAZ-220 PO (22:21)
[2018-08-19] MEDS ORDERED: LISI-661 PO (22:21)
[2018-08-19] MEDS ORDERED: PALI6TAB6 PEG (22:21)
[2018-08-19 22:25] LABS: ANION GAP 2 mmol/L (8-16); CALCIUM, TOTAL 8.8 mg/dL (8.8-10.5); CARBON DIOXIDE 33 mmol/L (22-29); CHLORIDE 102 mmol/L (98-107); CREATININE 0.97 mg/dL (0.60-1.30); GLOMERULAR FILTR. RATE CALC > 60 mL/min (>60); GLUCOSE,RANDOM 156 mg/dL (70-110); POTASSIUM 3.9 mmol/L (3.5-5.1); SODIUM SERUM 137 mmol/L (136-145); UREA NITROGEN, BLOOD 10 mg/dL (7-18)
[2018-08-19 22:27] LABS: ALANINE AMINOTRANSFERASE 42 U/L (12-78); ALBUMIN 3.7 g/dL (3.4-5.0); ALKALINE PHOSPHATASE 102 U/L (46-116); ASPARTATE AMINOTRANSFERASE 20 U/L (15-37); BILIRUBIN,TOTAL 0.3 mg/dL (0.1-1.0); TOTAL PROTEIN, SERUM 7.2 g/dL (6.4-8.2)
[2018-08-19 23:13] VITALS: BP 144/84
[2018-08-19] MEDS ORDERED: ACETAMINOPHEN 500 MG TABLET PO ONE (23:15)
== END 2018-08-19 23:52 | disposition home or self-care (01) ==
LOC: EMS 21:54
DX: R07.89 Other chest pain (principal); J40 Bronchitis, not specified as acute or chronic; I10 Essential (primary) hypertension; E78.00 Pure hypercholesterolemia, unspecified; E03.9 Hypothyroidism, unspecified; E11.9 Type 2 diabetes mellitus without complications; K21.9 Gastro-esophageal reflux disease without esophagitis; I25.10 Atherosclerotic heart disease of native coronary artery without angina pectoris; F31.9 Bipolar disorder, unspecified; F20.9 Schizophrenia, unspecified; Z79.82 Long term (current) use of aspirin; Z79.84 Long term (current) use of oral hypoglycemic drugs; Z79.899 Other long term (current) drug therapy
CPT/HCPCS: 93005

== ENCOUNTER → 2019-09-18 | Outpatient (CLI) | payer MEDICARE, OTHER ==
[~2019-09-18] MED LIST changes: -AMLO-511 PO; -DOCU-275 PO; +HALO10 PO; -HALO5TAB PO; +LISI-661 PO; -PALI3 PO; +PALI6TAB6 PEG; -QUET100T PO; -SULF1TAB42 PO; -TRAM50TA4 PO; +TRAZ-257 PO; -TRIH2TAB3 PO
[2019-09-19 12:00] LABS: CHOL/HDL RATIO 3.7 (4.2-7.3); CHOLESTEROL 121 mg/dL (131-200); CREATININE 0.98 mg/dL (0.60-1.30); FREE T4 (FREE THYROXINE) 0.81 ng/dL (0.76-1.46); GLOMERULAR FILTR. RATE CALC > 60 mL/min (>60); HDL CHOLESTEROL 33 mg/dL (40-60); HEMOGLOBIN A1C 6.3 % (4.5-6.2); LDL CHOL (CALC.) 52 mg/dL (0-130); LITHIUM 0.89 mmol/L (0.60-1.20); THYROID STIMULATING HORMONE 2.49 uIU/mL (0.36-3.74); TRIGLYCERIDES 179 mg/dL (15-150)
[2019-09-19 12:01] LABS: GLUCOSE,RANDOM 152 mg/dL (70-110)
== END | disposition home or self-care (01) ==
LOC: LABMN 11:30
PROVIDERS: ATTEND Psychiatry & Neurology Psychiatry
DX: F25.1 Schizoaffective disorder, depressive type (principal); I10 Essential (primary) hypertension; E11.9 Type 2 diabetes mellitus without complications
CPT/HCPCS: 82565; 82947; 83036; 84436; 84439; 84443

== ENCOUNTER → 2019-12-04 | Outpatient (CLI) | payer MEDICARE, OTHER ==
[~2019-12-04] MED LIST changes: +ASPI-1111 PO; -ASPI-1182 PO
[2019-12-04 17:56] LABS: HEMOGLOBIN A1C 6.9 % (3.8-5.6)
[2019-12-04 18:28] LABS: CHOL/HDL RATIO 4.3 (4.2-7.3)
== END | disposition home or self-care (01) ==
LOC: LABPV 14:52
PROVIDERS: ATTEND Psychiatry & Neurology Psychiatry
DX: F25.1 Schizoaffective disorder, depressive type (principal); E11.9 Type 2 diabetes mellitus without complications
CPT/HCPCS: 82947; 83036

== ENCOUNTER → 2020-11-17 | Outpatient (CLI) | payer MEDICARE, OTHER ==
[~2020-11-17] MED LIST changes: -ASPI-1111 PO; +ASPI-1444 PO; -LISI-661 PO; +LISI-893 PO; +MULT-660 PO; -MULT1TAB70 PO
[2020-11-17 16:39] LABS: HEMOGLOBIN A1C 6.4 % (3.8-5.6)
[2020-11-17 17:02] LABS: CHOL/HDL RATIO 3.4 (4.2-7.3)
== END | disposition home or self-care (01) ==
LOC: LABPV 13:20
PROVIDERS: ATTEND Psychiatry & Neurology Psychiatry
DX: F25.0 Schizoaffective disorder, bipolar type (principal); E11.9 Type 2 diabetes mellitus without complications
CPT/HCPCS: 82947; 83036

== ENCOUNTER → 2021-09-14 | Outpatient (CLI) | payer MEDICARE, OTHER ==
[~2021-09-14] MED LIST changes: +METF-1211 PO; -METF-960 PO
== END | disposition home or self-care (01) ==
LOC: LABPV 12:54
PROVIDERS: ATTEND Psychiatry & Neurology Psychiatry
DX: F25.1 Schizoaffective disorder, depressive type (principal)
CPT/HCPCS: 80178

== ENCOUNTER → 2021-11-09 | Outpatient (CLI) | payer MEDICARE, OTHER ==
[2021-11-09 14:13] LABS: HEMOGLOBIN A1C 6.7 % (3.8-5.6)
[2021-11-09 14:20] LABS: CHOL/HDL RATIO 3.2 (4.2-7.3)
== END | disposition home or self-care (01) ==
LOC: LABMN 11:00
PROVIDERS: ATTEND Psychiatry & Neurology Psychiatry
DX: F25.9 Schizoaffective disorder, unspecified (principal); Z79.899 Other long term (current) drug therapy
CPT/HCPCS: 80061; 82947; 83036

== ENCOUNTER → 2022-03-15 | Outpatient (CLI) | payer MEDICARE, OTHER ==
[~2022-03-15] MED LIST changes: +FLUO-177 PO; -FLUO-191 PO; -HALO10 PO; +HALO10TA21 PO; +HALO50VI29 IM; -HALO50VI4 IM
== END | disposition home or self-care (01) ==
LOC: LABMN 13:15
PROVIDERS: ATTEND Psychiatry & Neurology Psychiatry
DX: F25.9 Schizoaffective disorder, unspecified (principal)
CPT/HCPCS: 80178

== ENCOUNTER → 2022-10-18 | Outpatient (CLI) | payer MEDICARE, OTHER | END | disposition home or self-care (01) | LOC: LABMN 13:03 | PROVIDERS: ATTEND Psychiatry & Neurology Psychiatry | DX: F25.1 Schizoaffective disorder, depressive type (principal) | CPT/HCPCS: 80178 ==

== ENCOUNTER → 2023-01-03 | Outpatient (CLI) | payer MEDICARE, OTHER ==
[2023-01-03 16:31] LABS: CHOL/HDL RATIO 2.6 (4.2-7.3)
[2023-01-03 16:54] LABS: HEMOGLOBIN A1C 5.6 % (3.8-5.6)
== END | disposition home or self-care (01) ==
LOC: LABMN 11:18
PROVIDERS: ATTEND Psychiatry & Neurology Psychiatry
DX: F25.1 Schizoaffective disorder, depressive type (principal); Z79.899 Other long term (current) drug therapy
CPT/HCPCS: 80061; 82947; 83036